=== PATIENT | female | born 1940 | race Caucasian/White ===

== ENCOUNTER 2024-03-18 17:30 | Emergency (ER) | payer OTHER, SELFPAY ==
[2024-03-18 17:34] VITALS: BP 189/60; BMI 38.7
[2024-03-18 17:52] LABS: Hematocrit 30.2 % (37.0-47.0); Mean Corp Hgb Conc. 33.1 g/dL (33.0-37.0); Mean Corpuscular Hgb 27.5 pg (27.0-31.0); Mean Corpuscular Volume 83.2 fL (81.0-99.0); Mean Platelet Volume 9.8 fL (7.4-10.4); Platelet Count 279 10^3/uL (130-400); Red Blood Cell Count 3.63 10^6/uL (4.20-5.40); Red Cell Dist. Width 15.6 % (11.5-14.5); White Blood Cell Count 8.1 10^3/uL (4.8-10.8)
[2024-03-18 18:06] LABS: ALT (SGPT) 18 U/L (0-35); AST (SGOT) 25 U/L (14-36); Albumin 4.6 g/dl (3.5-5.0); Alkaline Phosphatase 61 U/L (38-126); Blood Urea Nitrogen 39 mg/dl (7-17); Calcium 10.1 mg/dl (8.4-10.2); Carbon Dioxide 27 mmol/L (22-30); Chloride 93 mmol/L (98-107); Estimated Creatinine Clearance 35 ml/min; Glucose 144 mg/dl (70-99); Potassium 4.3 mmol/L (3.5-5.1); Sodium 130 mmol/L (135-145); Total Bilirubin 0.3 mg/dl (0.2-1.3); Total Protein 7.2 g/dl (6.3-8.2)
[2024-03-18 18:18] LABS: NT-proBNP 1300 pg/ml; Troponin I 0.017 ng/ml
[2024-03-18 19:00] VITALS: BP 157/50
[2024-03-18 20:45] LABS: Glucose - Point of Care 125 mg/dl (70-99)
--- NOTE | 2024-03-18 21:24 | ED.GENMED ---
History of Present Illness
General
Chief Complaint: Breathing Problem
Source: patient
Time Seen by Provider: 03/18/24 17:38
History of Present Illness
History of Present Illness:
This is an 84yo female who presents with complaints of shortness of breath. Patient states this has been ongoing for some time but worse over the last several weeks. She has seen cardiology. She has outpatient testing pending. She has an appoint
with her primary care doctor tomorrow. Patient on my evaluation states she feels better she is not really short of breath. Patient states that at night though she wakes up and she is anxious that she is worried that she feels short of breath. She
does walk around her apartment without any issues. Occasionally when she walks a dinner she will have to stop but otherwise does not really have much exertional shortness of breath. No chest pain. No palpitations.
Past History
Past History
ED Past Medical History: CAD, CHF, COPD, HTN, Hypercholesterolemia and NIDDM
ED Past Surgical History: Cardiac and Orthopedic
Social History
Tobacco: Former smoker
Personal:
Phy Exam
Physical Exam
Physical Exam:
CONSTITUTIONAL Patient alert and oriented to person, place and time. Well-appearing. Vital signs reviewed.
HEAD atraumatic, normocephalic.
EYES eyelids normal to inspection, Pupils equally round and reactive to light, Extraocular muscles intact, Conjunctiva normal, Sclera normal.
NECK normal range of motion, Trachea midline, no jugular venous distention.
RESPIRATORY CHEST No respiratory distress noted, Chest expansion equal, Bilateral breath sounds clear.
CARDIOVASCULAR regular rate and rhythm, Heart sounds normal.
ABDOMEN abdomen nontender, Bowel sounds normal. No distention.
BACK normal inspection, no obvious deformities
UPPER EXTREMITY range of motion normal, Motor strength normal, no cyanosis, no edema.
LOWER EXTREMITY range of motion normal, Motor strength normal, no cyanosis, no edema.
NEURO Speech normal, No focal motor deficits, Elim coma scale 15, Memory normal, Cranial Nerves intact to screening exam.
SKIN skin warm, dry, and normal in color.
PSYCHIATRIC patient oriented to person place and time, Normal affect.
Scores
Heart Failure Risk
Heart Failure Risk Score: Not Applicable
Course
Orders/Labs/Results
Orders:
Orders
03/18/24 17:33
Electrocardiogram (*1) Urgent
Reason for Study: Shortness of Breath
EKG- Treatment ONCE
03/18/24 17:40
BNP [NT-proBNP] Urgent
Complete Blood Count/No Diff Urgent
Comprehensive Metabolic Panel Urgent
Troponin I Urgent
03/18/24 17:44
CR Chest - 2 Views Urgent
Comment:
Reason For Exam: SOB
03/18/24 19:54
Furosemide [Lasix] 40 mg IV NOW STA
Abnormal Lab Results
03/18/24 03/18/24
17:40 20:42
RBC 3.63 L 10^6/uL
(4.20-5.40)
Hgb 10.0 L g/dL
(12.0-16.0)
Hct 30.2 L %
(37.0-47.0)
RDW 15.6 H %
(11.5-14.5)
Sodium 130 L mmol/L
(135-145)
Chloride 93 L mmol/L
(98-107)
BUN 39 H mg/dl
(7-17)
Creatinine 1.3 H mg/dL
(0.6-1.0)
Glucose 144 H mg/dl
(70-99)
POC Glucose 125 H mg/dl
(70-99)
03/18/24 17:40
03/18/24 17:40
Vital Signs
Initial and Last Documented VS:
Initial Vital Signs
Temp Pulse Resp BP Pulse Ox
98.7 F 80 16 189/60 95
03/18/24 17:34 03/18/24 17:34 03/18/24 17:34 03/18/24 17:34 03/18/24 17:34
Last Documented Vital Signs
Temp Pulse Resp BP Pulse Ox
98.7 F 80 22 167/59 93
03/18/24 17:34 03/18/24 21:47 03/18/24 21:15 03/18/24 21:47 03/18/24 21:47
MDM/Problems Addressed
MDM/Problems Addressed:
Chronic heart failure, dyspnea
*Radiology
Radiology exam reviewed: radiology read reviewed
*Pulse Oximetry
Patient hypoxic: no
*EKG
Interpreted by ED Provider?: Yes
Rate: normal
Rhythm: sinus
[place]: normal axis
Ischemia: non-specific ST changes
*Cement Sack Breaker Interpretation
Rate: normal
Interpretation: normal
Rhythm: sinus
*Critical Care Note
Total Time (30-74mins, 75-104mins- exclusive of procedures): Not Applicable
Data Reviewed
Review of Other/Old Records Reveals: Discharge Summary
Source: patient
Prescriptions/Medications Considered But Not Given:
Considered IV Lasix but patient feels she can just take her nighttime dosing.
Patient Management
Escalation/DeEscalation of care consider admission/obs:
Lengthy discussion with patient. Patient is stable. She ambulates to bathroom without difficulty. She is not tachypneic or hypoxic. No tachycardia. Lungs are clear. No lower extremity edema. She already has outpatient follow-up tomorrow
morning at 9 AM in addition she has outpatient cardiology workup the works. I do think she is stable for discharge. She admits that some nights she is just anxious because her a few years ago and sometimes she becomes worried living
alone. I recommended she follow-up with her PCP tomorrow which she agrees to. Continue her 80 mg of Lasix tonight when she gets home
ED Attending Note
-
Portions of this chart may have been created with voice recognition software.� Occasional wrong word or��sound alike� substitutions may have occurred due to the inherent limitations of voice recognition software.
Discharge Plan
Departure
Patient Disposition: Home (Routine Discharge)
Date of Disposition: 03/18/24
Time of Disposition: 21:35
Patient with high blood pressure during this ER visit?: Yes
Discharge Problem:
Acute dyspnea
Instructions: *DCA Heart Failure Instructions
Prescriptions:
No Action
metoprolol tartrate 100 mg Tablet
100 mg PO BID
isosorbide mononitrate 30 mg Tablet Extended Release 24 Hr
30 mg PO DAILY
therapeutic multivitamin Tablet
1 tab PO .AFTERNOON
oxycodone-acetaminophen 5-325 mg tablet
1 tab PO TID PRN (Reason: severe pain)
Patient Comments:
07/24/2023, patient filled this medication on 07/19/2023 for 90 tablets according to PDMP.
sodium bicarbonate 650 mg Tablet
650 mg PO BID
fluticasone propionate 50 mcg/actuation [place],Suspension
1 spray INTRANASAL BID PRN (Reason: congestion)
cholecalciferol (vitamin D3) [Vitamin D3] 50 mcg (2,000 unit) Capsule
50 mcg PO DAILY
acetaminophen [Tylenol Extra Strength] 500 mg Tablet
1,500 mg PO BIDPRN PRN (Reason: mild pain)
aspirin 81 mg Tablet,Chewable
81 mg PO DAILY
fenofibrate nanocrystallized 48 mg Tablet
48 mg PO DAILY
CoQ-10
150 mg PO QPM
Rolaids
2 tab PO DAILYPRN PRN (Reason: stomach discomfort)
ipratropium-albuterol 0.5 mg-3 mg(2.5 mg base)/3 mL Solution For Nebulization
3 ml inhalation R TID Qty: 90 0RF
benzonatate 100 mg Capsule
100 mg PO TIDPRN PRN (Reason: cough) Qty: 30 0RF
gabapentin 100 mg Capsule
400 mg PO BID Qty: 60 0RF
pantoprazole 40 mg Tablet,Delayed Release (Dr/Ec)
40 mg PO DAILY Qty: 30 0RF
guaifenesin 600 mg Tablet Extended Release 12hr
1,200 mg PO Q12 Qty: 20 0RF
furosemide 40 mg Tablet
60 mg PO DAILY Qty: 30 0RF
atorvastatin 10 mg Tablet
10 mg PO QPM Qty: 30 0RF
glipizide 5 mg tablet
5 mg PO BID Qty: 60 0RF
Referrals:
Becka Lacy MD [Family Provider] -
Activity Restrictions/Additional Instructions:
Please see your doctor tomorrow morning as planned. Please follow-up with your plating operator next 3 to 5 days. Return immediately for worsening symptoms, leg swelling, chest pain, fevers or any other concerns.
Interventions
Interventions:
*Risk Screen - Suicide Last Done: 03/18/24 17:34
*General Assessment Last Done: 03/18/24 17:34
*Neglect/Abuse Screening Last Done: 03/18/24 17:34
ED- Cardiac Assessment Last Done: 03/18/24 18:37
ED- Pulmonary Assessment Last Done: 03/18/24 18:37
Discharge Date and Time
Print Language: TURKISH
[2024-03-18 21:45] VITALS: BP 167/59
[2024-03-18 21:47] VITALS: BP 167/59
[2024-03-18 22:00] VITALS: BP 160/57
== END 2024-03-18 22:48 | disposition home or self-care (01) ==
LOC: EMR 17:30
PROVIDERS: EMERGENCY PHYSICIAN Emergency Medicine; FAMILY PHYSICIAN Internal Medicine Geriatric Medicine
DX: R06.09 Other forms of dyspnea (principal); Z87.891 Personal history of nicotine dependence; I11.0 Hypertensive heart disease with heart failure; I50.9 Heart failure, unspecified
CPT/HCPCS: 99285; 96374; 71046; 80053; 82962; 83880; 84484; 85027; 93005

== ENCOUNTER 2024-03-20 18:22 | Emergency (ER) | payer OTHER, SELFPAY ==
[2024-03-20 18:26] VITALS: BMI 38.9
[2024-03-20 18:31] VITALS: BP 116/86
[2024-03-20 18:41] LABS: % Basophils 0.5 % (0-2); % Eosinophils 2.1 % (0-6); % Immature Granulocytes 0.2 % (0-0.5); % Lymphocytes 35.1 % (20.5-51.1); % Monocytes 9.5 % (1.7-9.3); % Neutrophils 52.6 % (42.2-75.2); Absolute Eosinophils 0.2 10^3/uL (0-0.7); Absolute Lymphocytes 2.9 10^3/uL (1.2-3.4); Absolute Monocytes 0.8 10^3/uL (0.1-0.6); Absolute Neutrophils 4.3 10^3/uL (1.4-6.5); Hematocrit 31.8 % (37.0-47.0); Hemoglobin 10.3 g/dL (12.0-16.0); Mean Corp Hgb Conc. 32.4 g/dL (33.0-37.0); Mean Corpuscular Hgb 27.3 pg (27.0-31.0); Mean Corpuscular Volume 84.4 fL (81.0-99.0); Mean Platelet Volume 9.6 fL (7.4-10.4); Nucleated Red Blood Cells % 0 %; Platelet Count 300 10^3/uL (130-400); Red Blood Cell Count 3.77 10^6/uL (4.20-5.40); Red Cell Dist. Width 15.9 % (11.5-14.5); White Blood Cell Count 8.1 10^3/uL (4.8-10.8)
--- NOTE | 2024-03-20 18:44 | ED.GENMED ---
History of Present Illness
General
Chief Complaint: Breathing Problem
Source: patient
Exam Limitations: none
Time Seen by Provider: 03/20/24 18:27
History of Present Illness
History of Present Illness:
This is a 84 year old female that come in by ambulance with c/o SOB and chest tightness. States that she was here on Tuesday for the same thing. State that she get SOB and can't take a deep breath in. States that the ambulance came and she was given
Oxygen and know she feels better. States that on Tuesday she was told when she went home to take Lasix 100mg instead of her 80mg, which she did. States that she went to see the PCP yesterday and she told them that the SOB does go away. States that
she just can't take that deep breath all the way through. States that she tried to walk to the dinning room last night for dinner and she had no appetite and started with diarrhea. States that today she had chest tightness, SOB, nausea and
occasionally she is dizzy. Denies any fevr, chills, abd pain, vomiting, headache, urinary burning.
Past History
Past History
ED Past Medical History: CAD, CHF, COPD, HTN, Hypercholesterolemia, NIDDM and Other (Back pain, Neuropathy, PVD)
ED Past Surgical History: Cardiac (Triple bypass, ) and Orthopedic (Back surgery, )
Social History
Tobacco: Former smoker
Alcohol: None
Personal:
Living: assisted living ([facility])
Review of Systems
Review of Systems
All Other Systems: ROS reviewed and negative except as documented in HPI and ROS
Constitutional: Reports no symptoms; Denies fever or chills
EENT: Reports no symptoms
Respiratory: Reports trouble breathing; Denies cough
Cardiac: Reports chest pain (Tightness)
ABD/GI: Reports nausea and diarrhea; Denies abdominal pain or vomiting
: Reports no symptoms; Denies dysuria, frequency or urgency
Musculoskeletal: Reports no symptoms
Skin: Reports no symptoms
Neurological: Reports dizzy; Denies headache
Psychiatric: Reports no symptoms
Phy Exam
General Physical Exam
General Presentation: no apparent distress
General age: appears stated age
General Skin: warm and dry
General Habitus: elderly
General Mental: alert
General Hydration: appears well hydrated
ENT Exam
ENT Exam: TM's normal, pharynx normal and neck supple
Eye Exam
Eye Exam: EOMI
Cardiovascular Exam
Cardiovascular Exam: regular rate/rhythm, no edema and normal peripheral pulses
Pulmonary Exam
Pulmonary Exam: lungs clear, no respiratory distress, no rales, chest non tender, no crackles, no rhonchi, no wheezing and no cough
Gastrointestinal Exam
Gastrointestinal Exam: normal bowel sounds, non tender, soft, no organomegaly, no pulsatile mass and non distended
Musculoskeletal Exam
Musculoskeletal Exam: full ROM and no edema
Skin Exam
Skin Exam: normal color, warm/dry, no rash and no petechia
Psychiatric Exam
Psychiatric Exam: normal mood/affect
Scores
Heart Failure Risk
Heart Failure Risk Score: Not Applicable
Course
Orders/Labs/Results
Orders:
Orders
03/20/24 18:24
EKG [Electrocardiogram (*1)] Urgent
Reason for Study: Shortness of Breath
03/20/24 18:25
EKG- Treatment ONCE
03/20/24 18:30
BNP [NT-proBNP] Urgent
CBC/With Diff [Complete Blood Count/With Diff] Urgent
CMP [Comprehensive Metabolic Panel] Urgent
Troponin I Urgent
Comment: ADDON
03/20/24 18:32
Add On- LAB Urgent
Tests Added?: troponin
03/20/24 18:43
Furosemide [Lasix] 80 mg PO NOW STA
CR Chest - 2 Views Urgent
Comment:
Reason For Exam: Chest pain, SOB
Abnormal Lab Results
03/20/24
18:30
RBC 3.77 L 10^6/uL
(4.20-5.40)
Hgb 10.3 L g/dL
(12.0-16.0)
Hct 31.8 L %
(37.0-47.0)
MCHC 32.4 L g/dL
(33.0-37.0)
RDW 15.9 H %
(11.5-14.5)
Absolute Monos (auto) 0.8 H 10^3/uL
(0.1-0.6)
Monocytes % 9.5 H %
(1.7-9.3)
Sodium 130 L mmol/L
(135-145)
Chloride 91 L mmol/L
(98-107)
BUN 52 H mg/dl
(7-17)
Creatinine 1.5 H mg/dL
(0.6-1.0)
Glucose 133 H mg/dl
(70-99)
03/20/24 18:30
03/20/24 18:30
H/H low but consistent with prior labs. Sodium slightly low. Chloride low, Chronic renal insufficiency, Glucose nonfasting. Troponin 0.018, Pro-BNP improved since Tuesday to 782
Vital Signs
Initial and Last Documented VS:
Initial Vital Signs
Temp Pulse Resp Pulse Ox
97.9 F 80 21 97
03/20/24 18:26 03/20/24 18:26 03/20/24 18:26 03/20/24 18:26
Last Documented Vital Signs
Temp Pulse Resp BP Pulse Ox
97.9 F 76 19 144/64 97
03/20/24 18:26 03/20/24 19:15 03/20/24 19:15 03/20/24 19:00 03/20/24 19:15
MDM/Problems Addressed
Differential Diagnosis Includes:
CHF, Anxiety
MDM/Problems Addressed:
This is a 84 year old female that comes in with c/o SOB and chest tightness. States that she was here on Tuesday for the same thing and that she did see her PCP yesterday. States that she feels she just can't take that deep breath.
Will check labs, Chest x-ray, give patient her night time Lasix.
Back into see patient. Explained that her chest x-ray is normal and her Pro-BNP is improved since Tuesday. Explained that she needs to follow up with the family doctor and discussed with her about anxiety and possible getting Oxygen for her at night.
Will discharge patient back to [facility].
Chronic conditions affecting care: CAD
Acute Exacerbation and/or Progression of Chronic Illness: CAD
*Radiology
Radiology exam reviewed: radiology read reviewed (Chest-NO acute cardiopulmonary process)
*Pulse Oximetry
Patient hypoxic: no
*EKG
Interpreted by ED Provider?: Yes
Heart Rate: 76
Rate: normal
Rhythm: sinus and PAC's
[place]: normal axis
Interval: normal interval
QRS Pattern: normal QRS
Ischemia: no ischemia
*Gun Club Manager Interpretation
Rate: normal
Heart Rate: 77
Rhythm: sinus
*Critical Care Note
Total Time (30-74mins, 75-104mins- exclusive of procedures): Not Applicable
ED Attending Note
-
Portions of this chart may have been created with voice recognition software.� Occasional wrong word or��sound alike� substitutions may have occurred due to the inherent limitations of voice recognition software.
Discharge Plan
Departure
Patient Disposition: Home (Routine Discharge)
Date of Disposition: 03/20/24
Time of Disposition: 20:56
Patient with high blood pressure during this ER visit?: No
Condition: Good
Covid-19: Not Applicable
Discharge Problem:
SOB (shortness of breath)
Instructions: Shortness of Breath (Dyspnea) (DC)
Prescriptions:
No Action
metoprolol tartrate 100 mg Tablet
100 mg PO BID
isosorbide mononitrate 30 mg Tablet Extended Release 24 Hr
30 mg PO DAILY
therapeutic multivitamin Tablet
1 tab PO DAILY
oxycodone-acetaminophen 5-325 mg tablet
1 tab PO Q6HPRN PRN (Reason: severe pain)
Patient Comments:
03/20/2024: last filled 02/28/24, 120 tabs for 30 days from [facility]
sodium bicarbonate 650 mg Tablet
650 mg PO BID
fluticasone propionate 50 mcg/actuation [place],Suspension
1 spray INTRANASAL BIDPRN PRN (Reason: congestion)
cholecalciferol (vitamin D3) [Vitamin D3] 50 mcg (2,000 unit) Capsule
50 mcg PO DAILY
Rolaids 550-110 mg Tablet,Chewable
2 tab PO DAILYPRN PRN (Reason: stomach discomfort) Qty: 0
Co Q-10 150 mg Capsule
150 mg PO QPM Qty: 0
aspirin 81 mg Tablet,Chewable
81 mg PO DAILY
fenofibrate nanocrystallized 48 mg Tablet
48 mg PO DAILY
furosemide 40 mg tablet
80 mg PO QPM
hydralazine 25 mg tablet
25 mg PO BID
metformin 1,000 mg tablet
1,000 mg PO BID
gabapentin 300 mg capsule
300 mg PO QID
rosuvastatin 20 mg tablet
20 mg PO QPM
furosemide 40 mg tablet
40 mg PO DAILY
ipratropium-albuterol 0.5 mg-3 mg(2.5 mg base)/3 mL solution for nebulization
3 ml inhalation R TIDPRN PRN (Reason: sob/wheezing)
Referrals:
Becka Lacy MD [Family Provider] - Follow up in 2-3 days
Activity Restrictions/Additional Instructions:
As discussed, your chest x-ray is negative for any acute process. Your Pro-BNP which is a marker for fluid over load is low. You have chronic renal insufficiency. Please follow up with the family doctor for recheck and discuss with her about having
Oxygen at home for when you are feeling SOB. PLEASE HAVE THE NURSING STAFF AT [facility] BRING IN A PORTABLE OXYGEN TANK FOR KNOW TO HELP YOU GET THROUGH THE NIGHT. YOUR OXYGEN LEVEL IS 94% ON ROOM AIR. IF YOU HAVE ANY OTHER CONCENS PLEASE
RETURN TO THE EMERGENCY ROOM.
Interventions
Interventions:
*Risk Screen - Suicide Last Done: 03/20/24 18:26
*General Assessment Last Done: 03/20/24 18:26
*Neglect/Abuse Screening Last Done: 03/20/24 18:26
ED- Fall Risk Assessment Last Done: 03/20/24 18:49
ED- Cardiac Assessment Last Done: 03/20/24 18:49
ED- Pulmonary Assessment Last Done: 03/20/24 18:49
Discharge Date and Time
Print Language: SLOVENIAN
[2024-03-20 18:55] LABS: ALT (SGPT) 17 U/L (0-35); AST (SGOT) 29 U/L (14-36); Albumin 4.6 g/dl (3.5-5.0); Alkaline Phosphatase 52 U/L (38-126); Blood Urea Nitrogen 52 mg/dl (7-17); Calcium 9.6 mg/dl (8.4-10.2); Carbon Dioxide 30 mmol/L (22-30); Chloride 91 mmol/L (98-107); Estimated Creatinine Clearance 31 ml/min; Glucose 133 mg/dl (70-99); Potassium 4.5 mmol/L (3.5-5.1); Sodium 130 mmol/L (135-145); Total Bilirubin 0.4 mg/dl (0.2-1.3); Total Protein 7.2 g/dl (6.3-8.2); eGFR 34.36
[2024-03-20 19:00] VITALS: BP 144/64
[2024-03-20 19:11] LABS: NT-proBNP 782 pg/ml; Troponin I 0.018 ng/ml
[2024-03-20] MEDS: LASIX 80 MG PO (19:26)
[2024-03-20 21:00] VITALS: BP 157/58
[2024-03-20 21:16] VITALS: BP 157/58
== END 2024-03-20 22:20 | disposition home or self-care (01) ==
LOC: EMR 18:22
PROVIDERS: Emergency Medicine; EMERGENCY PHYSICIAN Emergency Medicine; FAMILY PHYSICIAN Internal Medicine Geriatric Medicine
DX: R06.02 Shortness of breath (principal); I25.10 Atherosclerotic heart disease of native coronary artery without angina pectoris; Z87.891 Personal history of nicotine dependence
CPT/HCPCS: 99285; 71046; 80053; 83880; 84484; 85025; 93005

== ENCOUNTER 2024-10-16 16:16 | Inpatient (IN) | payer OTHER, SELFPAY ==
[2024-10-16] VITALS (7 sets, daily range): BP systolic 100–147; BP diastolic 50–103; BMI 38.8; BMI 38.4
[2024-10-16 10:06] LABS: % Basophils 0.5 % (0-2); % Eosinophils 2.1 % (0-6); % Immature Granulocytes 0.5 % (0-0.5); % Lymphocytes 30.2 % (20.5-51.1); % Monocytes 10.8 % (1.7-9.3); % Neutrophils 55.9 % (42.2-75.2); Absolute Eosinophils 0.1 10^3/uL (0-0.7); Absolute Monocytes 0.7 10^3/uL (0.1-0.6); Absolute Neutrophils 3.7 10^3/uL (1.4-6.5); Hematocrit 30.4 % (37.0-47.0); Hemoglobin 9.1 g/dL (12.0-16.0); Mean Corp Hgb Conc. 29.9 g/dL (33.0-37.0); Mean Corpuscular Hgb 29.2 pg (27.0-31.0); Mean Corpuscular Volume 97.4 fL (81.0-99.0); Mean Platelet Volume 9.6 fL (7.4-10.4); Nucleated Red Blood Cells % 0 %; Platelet Count 250 10^3/uL (130-400); Red Blood Cell Count 3.12 10^6/uL (4.20-5.40); White Blood Cell Count 6.6 10^3/uL (4.8-10.8)
[2024-10-16] MEDS: PERCOCET 5/325 1 TABLET PO ×3 (10:18→23:17)
[2024-10-16 10:20] LABS: ALT (SGPT) 16 U/L (0-35); AST (SGOT) 19 U/L (14-36); Albumin 3.8 g/dl (3.5-5.0); Alkaline Phosphatase 56 U/L (38-126); Blood Urea Nitrogen 59 mg/dl (7-17); Calcium 9.6 mg/dl (8.4-10.2); Carbon Dioxide 28 mmol/L (22-30); Chloride 100 mmol/L (98-107); Estimated Creatinine Clearance 27 ml/min; Glucose 143 mg/dl (70-99); Potassium 5.1 mmol/L (3.5-5.1); Sodium 134 mmol/L (135-145); Total Bilirubin 0.2 mg/dl (0.2-1.3); Total Protein 6.5 g/dl (6.3-8.2); eGFR 29.57
--- NOTE | 2024-10-16 10:25 | ED.GENMED ---
History of Present Illness
General
Chief Complaint: Chest Pain
Source: patient
Exam Limitations: none
Time Seen by Provider: 10/16/24 09:45
Nursing documentation reviewed up to this point in time: agreed with
History of Present Illness
History of Present Illness:
Pleasant elderly female from [facility] she has had some falls recently and at the medical unit recovering getting physical therapy today she apparently fell struck her buttock and her right knee got up felt short of breath with some pressure in
her chest, placed on oxygen, no head strike, no nausea or vomiting no fevers, she has chronic lung disease on oxygen as needed, ex-smoker has heart failure but no CAD she tells me had a stress test recently she is due for an echocardiogram
Past History
Past History
ED Past Medical History: CAD, CHF, COPD, HTN, Hypercholesterolemia, NIDDM and Other (Back pain, Neuropathy, PVD)
ED Past Surgical History: Cardiac (Triple bypass, ) and Orthopedic (Back surgery, )
Social History
Tobacco: Former smoker
Alcohol: None
Drug: None
Personal:
Living: assisted living ([facility])
Employment: Retired
Review of Systems
Review of Systems
All Other Systems: Not applicable
Constitutional: Denies fever or fatigue
Respiratory: Reports cough and trouble breathing
Cardiac: Reports chest pain
ABD/GI: Reports no symptoms
Musculoskeletal: Reports joint swelling (Right knee pain buttock pain) and back pain (Buttock pain); Denies joint pain
Neurological: Reports no symptoms
Hematologic/Lymphatic: Reports bruising (Bruising over the right abbott)
Psychiatric: Reports no symptoms
Phy Exam
Physical Exam
Physical Exam:
Physical Exam
General: no apparent distress, not acutely ill
Neck: No tongue bite no posterior neck
Heart: Regular
Lungs: Crackles at the
Abdomen: Soft not
Neuro: alert and oriented. no focal neurological deficits
Skin: no rash
Psychiatric: well kept. interactive and cooperative
Extremities: Pain at the right knee ecchymosis without pain over the right abbott
Scores
Heart Failure Risk
Heart Failure Risk Score: Yes
History of Stroke or TIA: No
History of intubation for respiratory distress: No
Heart rate on ED arrival >/= 110: Yes
SaO2 <90% on arrival on room air: Yes
HR >/=110 during 3min walk test (or too ill to perform test): No
ECG has acute ischemic changes: No
Urea >/=12mmol/L (BUN 33.6mg/dL): No
Serum CO2>/=35mmol/L: No
Troponin I or T elevated to SD Level (0.4mg/dL): No
NT-proBNP >/=5,000ng/L (5,000pg/ml): Yes
HF Risk Score: 2
Admission Status: MEDIUM RISK 9.2% Consider observation or discharge to home with homecare & f/u visit to PCP/Clerical Manager, or SNF for treatment
Heart Score for Chest Pain Patients
STEMI patient?: No
History: Slightly or Non-Suspicious
ECG: Nonspecific Repolarization
Age: >/= 65 years
Risk Factors: 1 or 2 Risk Factors
Troponin: </= Normal Limit
Heart Score for Chest Pain Patients: 4
Heart Score Risk: 20.3% MACE over next 6 weeks
Course
Orders/Labs/Results
Orders:
Orders
10/16/24 09:39
Electrocardiogram (*1) Urgent
Reason for Study: Chest Pain
EKG- Treatment ONCE
10/16/24 09:59
Complete Blood Count/With Diff Urgent
Comprehensive Metabolic Panel Urgent
NT-proBNP Urgent
Troponin I Urgent
10/16/24 10:05
CR Chest - 2 Views Urgent
Comment:
Reason For Exam: sob
10/16/24 10:15
Oxycodone/Acetaminophen [Percocet 5/325] 1 tablet PO NOW STA
CR Knee - Right 1 Or 2 Views Urgent
Comment:
Reason For Exam: fall
Pelvis, 1 or 2 Views CR [CR Pelvis - 1 Or 2 Views ] Urgent
Comment:
Reason For Exam: fall
10/16/24 11:42
Furosemide [Lasix] 80 mg IV NOW STA
Ipratropium/Albuterol Sulfate [Duoneb] 3 ml INH R NOW STA
Abnormal Lab Results
10/16/24
09:59
RBC 3.12 L 10^6/uL
(4.20-5.40)
Hgb 9.1 L g/dL
(12.0-16.0)
Hct 30.4 L %
(37.0-47.0)
MCHC 29.9 L g/dL
(33.0-37.0)
RDW 15.0 H %
(11.5-14.5)
Absolute Monos (auto) 0.7 H 10^3/uL
(0.1-0.6)
Monocytes % 10.8 H %
(1.7-9.3)
Sodium 134 L mmol/L
(135-145)
BUN 59 H mg/dl
(7-17)
Creatinine 1.7 H mg/dL
(0.6-1.0)
Glucose 143 H mg/dl
(70-99)
Troponin I 0.074 H* ng/ml
10/16/24 09:59
10/16/24 09:59
Vital Signs
Initial and Last Documented VS:
Initial Vital Signs
Temp Pulse Resp BP Pulse Ox
97.8 F 89 18 133/103 98
10/16/24 09:50 10/16/24 09:50 10/16/24 09:50 10/16/24 09:50 10/16/24 09:50
Last Documented Vital Signs
Temp Pulse Resp BP Pulse Ox
97.8 F 80 14 116/50 96
10/16/24 09:50 10/16/24 12:00 10/16/24 12:00 10/16/24 11:00 10/16/24 11:00
MDM/Problems Addressed
Differential Diagnosis Includes:
Deconditioning fall pelvic fracture sacral fracture knee injury heart failure COPD electrolyte abnormality arrhythmia
MDM/Problems Addressed:
Fall shortness of breath chest pain
Chronic conditions affecting care: Cardiomyopathy
Acute Exacerbation and/or Progression of Chronic Illness: Cardiomyopathy
*Radiology
Radiology exam reviewed: preliminary read by ED provider
*Pulse Oximetry
Patient hypoxic: no
*EKG
Interpreted by ED Provider?: Yes
Interpretation: abnormal
Comparison EKG: changes noted
Heart Rate: 78
Rate: normal
Rhythm: sinus
Ischemia: T-wave inversion
*It Support Specialist Interpretation
Rate: normal
Interpretation: normal
Heart Rate: 78
Rhythm: sinus
*Critical Care Note
Total Time (30-74mins, 75-104mins- exclusive of procedures): Not Applicable
Update Note
Update Note:
Update, labs noted chest x-ray noted suspect she is volume overloaded we will resume diuretic and nebs
ED Attending Note
-
Portions of this chart may have been created with voice recognition software.� Occasional wrong word or��sound alike� substitutions may have occurred due to the inherent limitations of voice recognition software.
Discharge Plan
Departure
Prescriptions:
No Action
metoprolol tartrate 100 mg Tablet
100 mg PO BID
isosorbide mononitrate 30 mg Tablet Extended Release 24 Hr
30 mg PO DAILY
therapeutic multivitamin Tablet
1 tab PO DAILY
oxycodone-acetaminophen 5-325 mg tablet
1 tab PO Q6HPRN PRN (Reason: severe pain)
sodium bicarbonate 650 mg Tablet
650 mg PO BID
fluticasone propionate 50 mcg/actuation [place],Suspension
1 spray INTRANASAL BIDPRN PRN (Reason: congestion)
cholecalciferol (vitamin D3) [Vitamin D3] 50 mcg (2,000 unit) Capsule
50 mcg PO DAILY
Co Q-10 150 mg Capsule
300 mg PO QPM Qty: 0
aspirin 81 mg Tablet,Chewable
81 mg PO DAILY
fenofibrate nanocrystallized 48 mg Tablet
48 mg PO DAILY
furosemide 40 mg tablet
80 mg PO QPM
hydralazine 25 mg tablet
25 mg PO BID
metformin 1,000 mg tablet
1,000 mg PO BID
gabapentin 300 mg capsule
300 mg PO QID
rosuvastatin 20 mg tablet
20 mg PO QPM
furosemide 40 mg tablet
40 mg PO DAILY
ipratropium-albuterol 0.5 mg-3 mg(2.5 mg base)/3 mL solution for nebulization
3 ml inhalation R TIDPRN PRN (Reason: sob/wheezing)
cyanocobalamin (vitamin B-12) 1,000 mcg Tablet
1,000 mcg PO DAILY
omeprazole 20 mg Tablet,Delayed Release (Dr/Ec)
20 mg PO DAILY
Referrals:
Becka Lacy MD [Family Provider] -
Interventions
Interventions:
*Risk Screen - Suicide Last Done: 10/16/24 09:51
*General Assessment Last Done: 10/16/24 09:51
*Neglect/Abuse Screening Last Done: 10/16/24 09:51
*ED- Fall Risk Assessment Last Done: 10/16/24 09:51
*ED COVID-19 Vaccine History Last Done: 10/16/24 09:51
ED- Cardiac Assessment Last Done: 10/16/24 09:52
Discharge Date and Time
Print Language: AMHARIC
[2024-10-16 10:33] LABS: NT-proBNP 6970 pg/ml; Troponin I 0.074 ng/ml
[2024-10-16] MEDS: LASIX 80 MG IV (11:47)
[2024-10-16] MEDS: DUONEB 3 ML INH (11:47)
--- NOTE | 2024-10-16 12:24 | HPS.HSE ---
Family Physician
-
Family Physician: Becka Lacy
Chief Complaint
-
Shortness of breath
History of Present Illness
84F [facility] assisted [facility] Morbid Obesity CAD CABG HFpEF COPD on prn 2L at home HTN HLD NIDDM former smoker present with progressive REESE orthopnea weight gain for the past few weeks. Had a fall during physical therapy, noted hypoxic
requiring oxygen supplementation, severe exercise intolerance, prompting ED eval. VSS on 2L. BNP all time high 6970. CXR suggestive mild CHF. Patient was treated with IV lasix 80 mg with subsequent improvement in sob noted. Troponin elevated
0.074 denies chest pain. No significant EKG changes noted in comparison with prior EKG Mar 2024.
Medical History
Past Medical History
Past Medical History: Reports Other (as above)
Past Surgical History: Reports Other (as above)
Social History
Tobacco: Former Smoker
Alcohol: None
Drug: None
Personal:
Living: Assisted Living
Employment: Retired
Family History
Family History: Not pertinent (reviewed)
Allergies / Home Medications
Allergies reflects when Allergies were last updated in [employer].
Home Medications with original date entered in [facility]
Allergy/Medication List:
Allergies
Allergy/AdvReac Type Severity Reaction Status Date / Time
amoxicillin Allergy Anaphylaxis Verified 03/18/24 17:44
bee venom protein (honey bee) Allergy Anaphylaxis Verified 03/18/24 17:44
clindamycin Allergy Anaphylaxis Verified 03/18/24 17:44
Penicillins Allergy Anaphylaxis Verified 03/18/24 17:44
Home Medications
isosorbide mononitrate 30 mg tablet,extended release 24 hr 30 mg PO DAILY Heart Disease/Condition 12/30/22
metoprolol tartrate 100 mg tablet 100 mg PO BID Blood Pressure 12/30/22
oxycodone-acetaminophen 5 mg-325 mg tablet 1 tab PO Q6HPRN PRN severe pain 12/30/22
sodium bicarbonate 650 mg tablet 650 mg PO BID Electrolyte Repletion 12/30/22
therapeutic multivitamin 1 tab PO DAILY Supplement 12/30/22
aspirin 81 mg chewable tablet 81 mg PO DAILY Blood Clot Prevention/Tx 07/24/23
cholecalciferol (vitamin D3) 50 mcg (2,000 unit) capsule (Vitamin D3) 50 mcg PO DAILY Supplement 07/24/23
coenzyme Q10 150 mg capsule 300 mg PO QPM Supplement ##0 07/24/23
fenofibrate nanocrystallized 48 mg tablet 48 mg PO DAILY High Cholesterol 07/24/23
fluticasone propionate 50 mcg/actuation nasal spray,suspension 1 spray intranasal BIDPRN PRN congestion 07/24/23
furosemide 40 mg tablet 40 mg PO DAILY 03/20/24
furosemide 40 mg tablet 80 mg PO QPM 03/20/24
gabapentin 300 mg capsule 300 mg PO QID 03/20/24
hydralazine 25 mg tablet 25 mg PO BID 03/20/24
ipratropium 0.5 mg-albuterol 3 mg (2.5 mg base)/3 mL nebulization soln 3 ml inhalation R TIDPRN PRN sob/wheezing 03/20/24
metformin 1,000 mg tablet 1,000 mg PO BID 03/20/24
rosuvastatin 20 mg tablet 20 mg PO QPM 03/20/24
cyanocobalamin (vitamin B-12) 1,000 mcg tablet 1,000 mcg PO DAILY 10/16/24
omeprazole 20 mg tablet,delayed release 20 mg PO DAILY 10/16/24
Review of Systems
-
A 12 point ROS was completed and negative except as noted: Yes
Constitutional: Reports Other (as below)
Physical Exam
Vital Signs
Vital Signs
Temp Pulse Resp BP Pulse Ox
97.8 F 80 14 116/50 96
10/16/24 09:50 10/16/24 12:00 10/16/24 12:00 10/16/24 11:00 10/16/24 11:00
Physical Exam
General: Other (as below)
Laboratory Results
-
10/16/24 09:59
10/16/24 09:59
Laboratory Results
Total Bilirubin 0.2 mg/dl (0.2-1.3) 10/16/24 09:59
AST 19 U/L (14-36) 10/16/24 09:59
ALT 16 U/L (0-35) 10/16/24 09:59
Alkaline Phosphatase 56 U/L (38-126) 10/16/24 09:59
Troponin I 0.074 ng/ml H* 10/16/24 09:59
Impression/Plan
-
ROS
General: Denies fever chills night sweats unexpected weight loss, endorses weight gain
Neuro: Denies seizure shaking loss of consciousness dizziness vertigo
Psych: denies depression hallucinations confusion manic episodes
Endocrine: Denies polyuria polydipsia polyphagia heat/cold intolerance
HEENT: Denies blindness visual disturbances epistaxis
Pulmonary: reports exertional dyspnea orthopnea
Cardiovascular: denies chest pain palpitations, reports leg swelling
Hematology: denies signs symptoms of anemia easy bruising/bleeding
Gastrointestinal: denies nausea vomiting diarrhea constipation hematemesis hematochezia melena
Genito-Urinary: denies retention incontinence dysuria
Musculoskeletal: reports joint pain weakness
Dermatology: right abbott abrasion from fall
Physical Exam
General: No pallor, cyanosis, or jaundice.
HEENT: Throat clear. PERRLA Normocephalic atraumatic
NECK: Supple. No JVD Carotid Bruits
RESPIRATORY: Bibasilar crackles, stable respiratory status on 2L
CVS: S1, S2 normal. RRR. No murmur, rub or gallop.
ABDOMEN: Soft, non-tender. No distension. BS+/normal.
EXTREMITIES: No peripheral cyanosis or edema. ecchymosis right abbott
HEALTH SYSTEMS ANALYST: AOx3 conversant coherent
Psych:calm
IMPRESSION:
84F [facility] assisted [facility] Morbid Obesity CAD CABG HFpEF COPD on prn 2L at home HTN HLD NIDDM former smoker present with progressive REESE orthopnea weight gain for the past few weeks. Had a fall during physical therapy, noted hypoxic
requiring oxygen supplementation, severe exercise intolerance, prompting ED eval. VSS on 2L. BNP all time high 6970. CXR suggestive mild CHF. Patient was treated with IV lasix 80 mg with subsequent improvement in sob noted. Troponin elevated
0.074 denies chest pain. No significant EKG changes noted in comparison with prior EKG Mar 2024.
PLAN:
Acute on Chronic HFpEF
Acute Hypoxia 2/2 HF
-Tele
-cont IV lasix
-Cardio eval requested
-daily weight I/O
-Check ECHO
-wean O2 supplementation as tolerated
-PT/OT eval
-cont home metoprolol with holding parameters
hx CAD CABG
cont home ASA IMdur
Troponin elevation
-chest pain free, no acute changes EKG noted
-suspect non-ischemic VT due to heart failure
-0.074 trended flat 0.074, checking 3rd trop
COPD
-no wheezing noted
-not on scheduled inhalers at home
-cont home prn duoneb
HTN
cont lasix metoprolol hydralazine w/ holding parameters
HLD
cont statin fenofibrate
CKD3B
cont bicarb
monitor renal function
NIDDM
Morbid Obesity
check A1c
hold home metformin d/t GFR<30 contraindicated
Insulin sliding scale
GERD
cont PPI
PT/OT
dvt ppx heparin
DNR as per patient
Discussed with patient and patient's brother Dominik
I spent a total of 80 minutes with the patient or on the floor. More than 50% of this time involved counseling and coordination of care.
[2024-10-16 15:20] LABS: Troponin I 0.074 ng/ml
--- NOTE | 2024-10-16 16:34 | CON.CAR ---
Addendum entered and electronically signed by Lux Ferrer MD 10/16/24 20:15:
84-year-old woman admitted with progressive REESE and orthopnea with weight gain in recent weeks. Last seen in our office in March 2024. proBNP 6978, troponin 0.074
PMH: HFpEF hypertension, hyperlipidemia, type 2 diabetes, CKD, prior back pain, peripheral neuropathy
PSH: CABG in 1999 at [facility]
Outpatient medications: Aspirin 81 mg a day, fenofibrate 48 mg daily, furosemide 40 mg a.m. 80 mg p.m., gabapentin 300 4 times daily, hydralazine 25 twice daily, DuoNebs, isosorbide mononitrate 30 mg a day, metformin 1000 mg twice daily, metoprolol
tartrate 100 twice daily, omeprazole, oxycodone, rosuvastatin 20 mg a day, bicarb
119/69, pulse 98, respiratory 23, temp is 36.6, sats are 96%, weight is 96.1 kg, unchanged from March 2024, no acute distress, sitting in chair, leaning forward to use purewick, head neck exam unremarkable, lungs relatively clear, no obvious
murmurs, JVD elevated, abdomen obese and benign, extremities 2+ 3+ edema neuro nonfocal, musculoskeletal intact
Chest x-ray cardiomegaly, poor inspiration, massively obese, possible mild vascular congestion
Hemoglobin 9.1, white count 6.6, platelets 250, potassium 5.1, BUN/creatinine 59 and 1.7, likely baseline, troponin 0.074, proBNP is 6970
ECG: Sinus rhythm, PACs, nonspecific ST and T changes
Echo December 2022: EF 55-60%, paradoxical septal motion, mild LVH, normal RV, normal atria, trace MR, normal aortic valve, could not determine pulmonary artery pressure
Sestamibi study October 2021 moderate size predominantly fixed mildly decreased mid anterior defect, EF 66%
Plan:
She presents with acute on chronic HFpEF with mild anemia underlying CKD. She has a minimally detectable troponin and no acute EKG changes.
Will continue IV furosemide.
Probably best to avoid spironolactone given CKD. Her sodium bicarb represents a substantial salt load and will contribute to HFpEF. Serum bicarbonate is 28, perhaps oral bicarbonate can be reduced.
Not clear that she is a good candidate for an SGLT2 antagonistm, but will need to consider if this has not been considered previously. Currently she is using a Purewick.
She is difficult to interview and has given different stories to different examiners. She describes chest discomfort and her troponin is detectable, but she had a PET/CT stress test last fall that did not show significant ischemia. Therefore will
not be anxious to pursue her elevated troponin at this time.
Last echo was in 2022, will await follow-up study.
Original Note:
Consultation
Consultation Request
Date/Time Consultation Requested: 10/16/2024, 1608,
Date/Time Consultation Performed: 10/16/2024, 1635
Requesting Provider: Dr Levy
Performing Provider: SAIDA Connell for Dr. Ferrer
Reason for Consultation: Heart failure
Medical History
-
Chief Complaint: Shortness of breath and weight gain
History of Present Illness:
Patient is an 84 YOF with PMH of CAD s/p remote CABG, HTN, HLD, type 2 diabetes, obesity, anemia, chronic kidney disease, COPD on home oxygen 2 L, chronic back pain who presents today due to increased dyspnea on exertion and weight gain for the past
few weeks. Sometimes she wakes up short of breath at night and puts her oxygen on with resolution of shortness of breath. Yesterday when she was walking to the bathroom she slipped on the hardwood floors and fell. She had to crawl across the
floor to get the call preez. She was assisted into her bed. She tells me this morning she woke up and had chest pressure. She felt nervous that she could not get out of bed and she thinks that exacerbated the chest pressure. She called 911 and
was brought to . Pro BNP 6970 and chest x-ray showed mild heart failure. She received Lasix 80 IV milligrams in ED with improvement in symptoms. Troponin 0.074. No chest pain. Cardiology consulted for evaluation. Patient lives independently
at [facility] but recently spent 10 days in their rehab facility..
Patient sees Dr. Jaime for cardiovascular care. Had PET CT scan on 05/29/2024 showed normal myocardial perfusion imaging with no fixed or reversible defects, normal systolic function, EF greater than 70%. She was also supposed to get echo but
there was a problem with scheduling and it was not done.
PMH:
Chronic heart failure with preserved ejection fraction
CAD s/p remote CABG
CKD 3a
HTN
HLD
DM 2
Neuropathy
Chronic back pain
Anemia
Remote former smoker
Chronic anemia
Obesity
Chronic leg neuropathy
PMH:
CAD status post remote CABG
Chronic heart failure with preserved EF
CKD stage IIIa
Hypertension
Hyperlipidemia
Diabetes type 2
Diabetic neuropathy
Chronic back pain
Chronic anemia
Remote former smoker
Obesity
Past Medical History
Past Medical History: Other (See HPI)
Past Surgical History: Cardiac (CABG 1999 at [facility]) and Orthopedic
Social History
Tobacco: Former Smoker
Alcohol: Occasional
Drug: Narcotics (chronic pain medication followed by pain management)
Personal:
Living: Alone (independent living at [facility])
Family History
Family History: Other (CVA, AAA)
Allergies / Home Medications
Allergy/AdvReac Type Severity Reaction Status Date / Time
amoxicillin Allergy Anaphylaxis Verified 03/18/24 17:44
bee venom protein (honey bee) Allergy Anaphylaxis Verified 03/18/24 17:44
clindamycin Allergy Anaphylaxis Verified 03/18/24 17:44
Penicillins Allergy Anaphylaxis Verified 03/18/24 17:44
�Medication �Instructions �Recorded �Confirmed �Type
isosorbide mononitrate 30 mg 30 mg PO DAILY Heart 12/30/22 10/16/24 History
tablet,extended release 24 hr Disease/Condition
metoprolol tartrate 100 mg tablet 100 mg PO BID Blood Pressure 12/30/22 10/16/24 History
oxycodone-acetaminophen 5 mg-325 1 tab PO Q6HPRN PRN severe pain 12/30/22 10/16/24 History
mg tablet
sodium bicarbonate 650 mg tablet 650 mg PO BID Electrolyte Repletion 12/30/22 10/16/24 History
therapeutic multivitamin 1 tab PO DAILY Supplement 12/30/22 10/16/24 History
aspirin 81 mg chewable tablet 81 mg PO DAILY Blood Clot 07/24/23 10/16/24 History
Prevention/Tx
cholecalciferol (vitamin D3) 50 50 mcg PO DAILY Supplement 07/24/23 10/16/24 History
mcg (2,000 unit) capsule (Vitamin
D3)
coenzyme Q10 150 mg capsule 300 mg PO QPM Supplement ##0 07/24/23 10/16/24 History
fenofibrate nanocrystallized 48 mg 48 mg PO DAILY High Cholesterol 07/24/23 10/16/24 History
tablet
fluticasone propionate 50 1 spray intranasal BIDPRN PRN 07/24/23 10/16/24 History
mcg/actuation nasal congestion
spray,suspension
furosemide 40 mg tablet 40 mg PO DAILY 03/20/24 10/16/24 History
furosemide 40 mg tablet 80 mg PO QPM 03/20/24 10/16/24 History
gabapentin 300 mg capsule 300 mg PO QID 03/20/24 10/16/24 History
hydralazine 25 mg tablet 25 mg PO BID 03/20/24 10/16/24 History
ipratropium 0.5 mg-albuterol 3 mg 3 ml inhalation R TIDPRN PRN 03/20/24 10/16/24 History
(2.5 mg base)/3 mL nebulization sob/wheezing
soln
metformin 1,000 mg tablet 1,000 mg PO BID 03/20/24 10/16/24 History
rosuvastatin 20 mg tablet 20 mg PO QPM 03/20/24 10/16/24 History
cyanocobalamin (vitamin B-12) 1,000 mcg PO DAILY 10/16/24 10/16/24 History
1,000 mcg tablet
omeprazole 20 mg tablet,delayed 20 mg PO DAILY 10/16/24 10/16/24 History
release
Review of Systems
-
History Source: Patient
Constitutional: No Symptoms
Physical Exam
Vital Signs
Temp Pulse Resp BP Pulse Ox
97.8 F 98 23 119/69 96
10/16/24 09:50 10/16/24 16:00 10/16/24 16:00 10/16/24 15:08 10/16/24 15:10
Lab Results
10/16/24 09:59
10/16/24 09:59
Troponin I 0.074 ng/ml H* 10/16/24 14:45
[id number] Pept 6970 pg/ml 10/16/24 09:59
GEN: No distress, awake, Ox3
HEENT: supple, anicteric, mmm
LUNGS: Rales at bases
CV: Reg, occasional ectopic beats S1/S2, 1/6 syst LSB, no murmur
ABD: soft, BS+, NT/ND
EXT: 1+ lower extremity edema
NEURO: Gross non-focal
SKIN: No rash
Impression / Plan
-
PCP: Dr. Becka Lacy
Cardiology: Dr. Jaime
Impression:
Acute on chronic heart failure preserved EF
Presented 10/16/2024 with dyspnea on exertion and increased lower extremity edema
Chronic heart failure with preserved ejection fraction
CAD s/p remote CABG
CKD 3a
HTN
HLD
DM 2
Neuropathy
Chronic back pain
Anemia
Remote former smoker
Chronic anemia
Obesity
Chronic leg neuropathy
Nuclear stress test 11/16/21: moderate sized predominantly fixed area of mildly decreased perfusion mid anterior wall, EF 66%
Echo 12/31/2022: EF 55-60%, mild cLVH, no significant valvular disease
PET CT scan on 05/29/2024 showed normal myocardial perfusion imaging with no fixed or reversible defects, normal systolic function, EF greater than 70%.
Plan:
Admitted with acute heart failure with preserved ejection fraction
proBNP 6970
Diuresing after Lasix 80 mg IV in ED
Admit to telemetry
Check echo
Troponin 0.074 x 2, continue to trend. Patient currently without chest pain but did have chest pressure this morning prior to presentation. PET CT scan 05/2024 showed normal myocardial perfusion
Having frequent PACs on telemetry, continue to monitor.
Creatinine baseline 1.3-1.5.
Daily BMPs with IV diuresis
-Continue other cardiac meds, ASA 81 mg, hydralazine 25 mg twice daily, isosorbide 30 mg daily, metoprolol tartrate 100 mg twice daily, rosuvastatin 20 mg daily
Data Reviewed
-
EKG: Tracing Personally Visualized and interpreted
Medical Tests (Nuc Med, Echo etc): Image Personally Visualized and interpreted
Labs: Labs Reviewed by me
[2024-10-16 18:06] LABS: Glucose - Point of Care 138 mg/dl (70-99)
[2024-10-16] MEDS: NOVOLOG FLEXPEN-LOW RESISTANCE SC (18:11)
[2024-10-16] MEDS: PROTONIX 40 MG PO (18:48)
[2024-10-16] MEDS: HEPARIN 5000 UNITS SC ×2 (18:48→23:17)
[2024-10-16] MEDS: APRESOLINE PO (20:50)
[2024-10-16] MEDS: LOPRESSOR 100 MG PO (20:51)
[2024-10-16] MEDS: NEURONTIN 300 MG PO (20:52)
[2024-10-16] MEDS: CRESTOR 10 MG PO (20:52)
[2024-10-16] MEDS: SODIUM BICARBONATE 650 MG PO (20:52)
[2024-10-16 21:40] LABS: Glucose - Point of Care 130 mg/dl (70-99)
[2024-10-17] VITALS (8 sets, daily range): BP systolic 86–161; BP diastolic 49–65; PULSE 66; O2SAT 100; BMI 37.3
[2024-10-17 00:17] LABS: Troponin I 0.093 ng/ml
--- NOTE | 2024-10-17 04:25 | DOWNTIME ---
There was a [employer] Downtime on 10/17/2024 from 0100 to 10/18/2023 at 0420 . Downtime documentation of patient's care, including medication administrations, has been reconciled in the electronic record per guidelines. Refer to the
patient's paper chart under the miscellaneous tab to see printed paper medication records and downtime forms.
[2024-10-17 06:30] LABS: Hematocrit 30.5 % (37.0-47.0); Hemoglobin 9.4 g/dL (12.0-16.0); Mean Corp Hgb Conc. 30.8 g/dL (33.0-37.0); Mean Corpuscular Hgb 29.2 pg (27.0-31.0); Mean Corpuscular Volume 94.7 fL (81.0-99.0); Mean Platelet Volume 10.2 fL (7.4-10.4); Platelet Count 247 10^3/uL (130-400); Red Blood Cell Count 3.22 10^6/uL (4.20-5.40); Red Cell Dist. Width 14.9 % (11.5-14.5); White Blood Cell Count 6.6 10^3/uL (4.8-10.8)
[2024-10-17 06:50] LABS: Blood Urea Nitrogen 47 mg/dl (7-17); Calcium 9.8 mg/dl (8.4-10.2); Carbon Dioxide 30 mmol/L (22-30); Chloride 99 mmol/L (98-107); Digoxin 0.5 ng/ml (0.8-2.0); Estimated Creatinine Clearance 38 ml/min; Glucose 117 mg/dl (70-99); Phosphorus 3.5 mg/dl (2.5-4.5); Potassium 4.8 mmol/L (3.5-5.1); Sodium 136 mmol/L (135-145); eGFR 44.91
--- NOTE | 2024-10-17 06:54 | W.PN.HOSP.TC ---
Today's Communication/Plan
-
diuresis as per Cardio
PT/OT
Blood pressure control
wean O2 as tolerated
Assessment / Plan
Assessment / Plan
Physical Exam
General: No pallor, cyanosis, or jaundice.
HEENT: Throat clear. PERRLA Normocephalic atraumatic
NECK: Supple. No JVD Carotid Bruits
RESPIRATORY: Bibasilar crackles, stable respiratory status on 2L
CVS: S1, S2 normal. RRR. No murmur, rub or gallop.
ABDOMEN: Soft, non-tender. No distension. BS+/normal.
EXTREMITIES: No peripheral cyanosis or edema. ecchymosis right abbott
FIXTURE DESIGNER: AOx3 conversant coherent
Psych:calm
IMPRESSION:
84F [facility] assisted [facility] Morbid Obesity CAD CABG HFpEF COPD on prn 2L at home HTN HLD NIDDM former smoker present with progressive REESE orthopnea weight gain for the past few weeks. Had a fall during physical therapy, noted hypoxic
requiring oxygen supplementation, severe exercise intolerance, prompting ED eval. VSS on 2L. BNP all time high 6970. CXR suggestive mild CHF. Patient was treated with IV lasix 80 mg with subsequent improvement in sob noted. Troponin elevated
0.074 denies chest pain. No significant EKG changes noted in comparison with prior EKG Mar 2024.
PLAN:
Acute on Chronic HFpEF
Acute Hypoxia 2/2 HF
-Tele
-cont IV lasix
-Cardio eval appreciated
-daily weight I/O
-ECHO appreciated EF 55-60% stage I diastolic dysfunction, no significant change compared to prior study 12/2022
-wean O2 supplementation as tolerated
-PT/OT eval
-cont home metoprolol with holding parameters
hx CAD CABG
cont home ASA IMdur
Troponin elevation
-chest pain free, no acute changes EKG noted
-suspect non-ischemic IN due to heart failure
-0.074 trended flat 0.074, checking 3rd trop
COPD
-no wheezing noted
-not on scheduled inhalers at home
-cont home prn duoneb
HTN
cont lasix metoprolol hydralazine w/ holding parameters
HLD
cont statin fenofibrate
CKD3B
home bicarb discontinued, unnecessary at this time
monitor renal function
hx NIDDM
Morbid Obesity
A1c 6.3 (prediabetes)
hold Metformin
Insulin sliding scale
GERD
cont PPI
PT/OT appreciated home health
dvt ppx heparin
DNR as per patient
I spent a total of 50 minutes with the patient or on the floor. More than 50% of this time involved counseling and coordination of care.
Anticipated Discharge: 24 - 48 hours
Subjective/Interval History
-
Date of Service: October 17, 2024
no acute distress resting comfortably in bed. Reports feeling improvement in overall symptoms.
Objective Data
-
Labs:
Laboratory Results
10/17/24
05:42
WBC 6.6
Hgb 9.4 L
Hct 30.5 L
Plt Count 247
Sodium 136
Potassium 4.8
Chloride 99
Carbon Dioxide 30
BUN 47 H
Creatinine 1.2 H
Glucose 117 H
Calcium 9.8
Vital Signs:
Vital Signs
Temp Pulse Resp BP Pulse Ox
98.6 F 76 20 137/49 100
10/17/24 03:38 10/17/24 03:38 10/17/24 03:38 10/17/24 03:38 10/17/24 03:38
I&O
10/15/24 10/16/24 10/17/24
06:59 06:59 06:59
Output Total 800 / 800
Balance -800 / -800
[2024-10-17 07:16] LABS: Glucose - Point of Care 189 mg/dl (70-99)
[2024-10-17 07:18] LABS: TSH Reflex To Free T4 1.78 uIU/ml (0.47-4.68)
[2024-10-17] MEDS: IMDUR (EXTENDED RELEASE) 30 MG PO (08:13)
[2024-10-17] MEDS: SODIUM BICARBONATE 650 MG PO (08:14)
[2024-10-17] MEDS: LOPRESSOR 100 MG PO ×2 (08:14→20:24)
[2024-10-17] MEDS: NEURONTIN 300 MG PO ×2 (08:14→20:23)
[2024-10-17] MEDS: PROTONIX 40 MG PO (08:14)
[2024-10-17] MEDS: THERAGRAN 1 TABLET PO (08:14)
[2024-10-17] MEDS: APRESOLINE 25 MG PO ×2 (08:14→20:25)
[2024-10-17] MEDS: VITAMIN D3 (cholecalciferol) 50 MCG PO (08:14)
[2024-10-17] MEDS: HEPARIN 5000 UNITS SC ×3 (08:14→22:40)
[2024-10-17] MEDS: VITAMIN B-12 1000 MCG PO (08:15)
[2024-10-17] MEDS: LASIX 80 MG IV (08:15)
[2024-10-17] MEDS: DESENEX/MITRAZOL/ZEASORB 1 APPLIC TOPICAL ×2 (08:15→20:25)
[2024-10-17] MEDS: LOW STRENGTH ASPIRIN 81 MG PO (08:15)
[2024-10-17] MEDS: NOVOLOG FLEXPEN-LOW RESISTANCE 1 UNITS SC ×2 (08:25→16:34)
--- NOTE | 2024-10-17 09:34 | W.PN.CARDCBS ---
Addendum entered and electronically signed by Mike Rendon MD 10/17/24 12:30:
I saw and examined the patient.
The Rn Mds Coordinator's note was reviewed and I agree with the note.
Comment: Briefly, 84-year-old woman past medical history of heart failure preserved ejection fraction, CAD with prior CABG, hypertension, hyperlipidemia, DM2, CKD who presents with worsening dyspnea on exertion and lower extremity edema consistent
with acute on chronic heart failure
Patient appears volume overloaded on exam and is requiring supplemental oxygen, 3 L via nasal cannula
Would continue IV Lasix -okay to continue once daily as she is responding well to current dosing
Wean oxygen as able
Check daily standing weights
Monitor creatinine and electrolytes -creatinine is improving with diuresis suggestive of cardiorenal syndrome
Check echo
Would be hesitant to add MRA or SGLT2 during this admission given CKD
Discussed with patient that sodium bicarbonate may be contributing to her volume overload and ideally we would decrease or discontinue this medication
Elevated troponin is noted, trend is overall flat, most recently 0.093
Not reporting any chest discomfort and ECG is not overtly ischemic
Suspect nonischemic myocardial injury troponin elevation in the setting of acute heart failure and CKD
Continue aspirin and high intensity statin for treatment of known CAD
Original Note:
Today's Communication / Plan
-
Ongoing diuresis
Check standing scale weights
52 min in face to face and coordination of care
Impression / Plan
-
PCP: Dr. Becka Lacy
Cardiology: Dr. Jaime
Impression:
Admitted with REESE and LE edema 10/16/24
Acute on chronic HFpEF
CAD s/p remote CABG
CKD 3a
HTN
HLD
DM 2
Neuropathy
Chronic back pain
Anemia
Remote former smoker
Chronic anemia
Obesity
Chronic leg neuropathy
Nuclear stress test 11/16/21: moderate sized predominantly fixed area of mildly decreased perfusion mid anterior wall, EF 66%
PET CT scan on 05/29/2024: showed normal myocardial perfusion imaging with no fixed or reversible defects, normal systolic function, EF greater than 70%.
Echo 12/31/2022: EF 55-60%, mild cLVH, no significant valvular disease
Echo 10/17/24: Study pending
Plan:
-Patient came to [facility] from [facility] with falls, SOB and CP on 10/16/24. She is being diuresed for acute HF.
-Weight is down 6 lbs overnight if weight is correct. Patient is below previous dry weight. Current weight is 203 lbs on 10/17/24.
-Cont Lasix 80 mg IV daily. Patient was taking Lasix 40 mg PO daily prior to admission
-Echo pending, but EF was 55-60% back in 2022
-Outpatient dose of Lopressor 100 mg BID has been continued. Consider changing to Toprol XL or Coreg pending echo.
-Patient is not chronically on ADRIANE/ARB, but is on a regimen of Imdur ER 30 mg daily and hydralazine 25 mg BID which have been continued
-Will not add spironolactone due to CKD
-Will ask CM to check on cost of Farxiga 10 mg daily to see if this is affordable.
-Troponin up to 0.093, will repeat in AM. PET stress 05/2024 showed normal myocardial perfusion. Will manage as a nonischemic myocardial injury Troponin elevation.
HPI: Patient is an 84 YOF with PMH of CAD s/p remote CABG, HTN, HLD, type 2 diabetes, obesity, anemia, chronic kidney disease, COPD on home oxygen 2 L, chronic back pain who presents today due to increased dyspnea on exertion and weight gain for the
past few weeks. Sometimes she wakes up short of breath at night and puts her oxygen on with resolution of shortness of breath. Yesterday when she was walking to the bathroom she slipped on the hardwood floors and fell. She had to crawl across the
floor to get the call perez. She was assisted into her bed. She tells me this morning she woke up and had chest pressure. She felt nervous that she could not get out of bed and she thinks that exacerbated the chest pressure. She called 911 and
was brought to . Pro BNP 6970 and chest x-ray showed mild heart failure. She received Lasix 80 IV milligrams in ED with improvement in symptoms. Troponin 0.074. No chest pain. Cardiology consulted for evaluation. Patient lives independently
at [facility] but recently spent 10 days in their rehab facility. Patient sees Dr. Jaime for cardiovascular care. Had PET CT scan on 05/29/2024 showed normal myocardial perfusion imaging with no fixed or reversible defects, normal systolic
function, EF greater than 70%. She was also supposed to get echo but there was a problem with scheduling and it was not done.
Progress Note - Engine Specialist
Subjective
Date of Service: October 17, 2024
No chest pain
Objective
Labs:
10/17/24 05:42
10/17/24 05:42
Labs
Hgb 9.4 g/dL (12.0-16.0) L 10/17/24 05:42
Hct 30.5 % (37.0-47.0) L 10/17/24 05:42
Plt Count 247 10^3/uL (130-400) 10/17/24 05:42
Sodium 136 mmol/L (135-145) 10/17/24 05:42
Potassium 4.8 mmol/L (3.5-5.1) 10/17/24 05:42
BUN 47 mg/dl (7-17) H 10/17/24 05:42
Creatinine 1.2 mg/dL (0.6-1.0) H 10/17/24 05:42
Glucose 117 mg/dl (70-99) H 10/17/24 05:42
Digoxin 0.5 ng/ml (0.8-2.0) L 10/17/24 05:42
Troponins
10/16/24 10/16/24 10/16/24
09:59 14:45 23:46
Troponin I 0.074 H* 0.074 H* 0.093 H*
Vital Signs and I&O:
Vital Signs
Temp Pulse Resp BP Pulse Ox
97.9 F 85 20 153/65 97
10/17/24 07:15 10/17/24 08:14 10/17/24 07:15 10/17/24 08:14 10/17/24 07:15
Vital Signs
Temp Pulse Resp BP Pulse Ox
97.9 F 85 20 153/65 97
10/17/24 07:15 10/17/24 08:14 10/17/24 07:15 10/17/24 08:14 10/17/24 07:15
Intake & Output
10/15/24 10/16/24 10/17/24 10/18/24
06:59 06:59 06:59 06:59
Intake Total 720 / 720
Output Total 800 / 800 1375 / 1375
Balance -800 / -800 -655 / -655
Physical Exam
Physical Exam
GEN: AAOx3
HEENT: mmm
LUNGS: 3 L NC. No audible wheeze
CV: SR on tele
ABD: ND
EXT: +1-2 edema B/L LE
NEURO: Gross non-focal
SKIN: No rash
[2024-10-17 10:00] LABS: Glycohemoglobin (HgbA1c) 6.3 % (4.0-5.6)
[2024-10-17 11:39] LABS: Glucose - Point of Care 142 mg/dl (70-99)
[2024-10-17] MEDS: NOVOLOG FLEXPEN-LOW RESISTANCE SC (12:01)
[2024-10-17] MEDS: PERCOCET 5/325 1 TABLET PO ×2 (15:20→22:39)
[2024-10-17 15:54] LABS: Glucose - Point of Care 176 mg/dl (70-99)
--- NOTE | 2024-10-17 16:32 | CM ---
Alert awake oriented patient who lives at [facility]. She is independent in activates of daily living.She does not drive .She used a walker here in hospital.
Had [facility] in past . No SNF hx
Pharmacy [facility]
PCP Dr Khan
PLAN Home with no needs
--- NOTE | 2024-10-17 16:37 | CM ---
Alert awake oriented patient who lives independent living at [facility]. She is independent in activates of daily living.She uses walker home oxygen with [place] [facility].
[facility]NEY in past .[facility] hx
Pharmacy [facility]
PCP Dr Lacy
PLAN REturn to [facility]
[2024-10-17] MEDS: CRESTOR 10 MG PO (17:04)
[2024-10-17 21:58] LABS: Glucose - Point of Care 122 mg/dl (70-99)
[2024-10-18 03:55] VITALS: BP 138/70
[2024-10-18 05:44] VITALS: BMI 36.6
--- NOTE | 2024-10-18 07:20 | W.PN.HOSP.TC ---
Today's Communication/Plan
-
see note
Assessment / Plan
Assessment / Plan
Physical Exam
General: No pallor, cyanosis, or jaundice.
HEENT: Throat clear. PERRLA Normocephalic atraumatic
NECK: Supple. No JVD Carotid Bruits
RESPIRATORY: Bibasilar crackles, stable respiratory status on 2L
CVS: S1, S2 normal. RRR. No murmur, rub or gallop.
ABDOMEN: Soft, non-tender. No distension. BS+/normal.
EXTREMITIES: No peripheral cyanosis or edema. ecchymosis right abbott
SYSTEM DESIGNER: AOx3 conversant coherent
Psych:calm
IMPRESSION:
84F [facility] assisted living Morbid Obesity CAD CABG HFpEF COPD on prn 2L at home HTN HLD NIDDM former smoker present with progressive REESE orthopnea weight gain for the past few weeks. Had a fall during physical therapy, noted hypoxic
requiring oxygen supplementation, severe exercise intolerance, prompting ED eval. VSS on 2L. BNP all time high 6970. CXR suggestive mild CHF. Patient was treated with IV lasix 80 mg with subsequent improvement in sob noted. Troponin elevated
0.074 denies chest pain. No significant EKG changes noted in comparison with prior EKG Mar 2024.
PLAN:
Acute on Chronic HFpEF
Acute Hypoxia 2/2 HF
-Tele
-cont IV lasix
-Cardio eval appreciated
-daily weight I/O
-ECHO appreciated EF 55-60% stage I diastolic dysfunction, no significant change compared to prior study 12/2022
-wean O2 supplementation as tolerated
-PT/OT eval
-cont home metoprolol with holding parameters
Left toe bruising from fall
-Foot X-ray appreciated no fracture of dislovation
hx CAD CABG
cont home ASA IMdur
Troponin elevation
-chest pain free, no acute changes EKG noted
-likely non-ischemic NM due to heart failure
-Troponin trended to peak 0.093 since trended down
COPD
-no wheezing noted
-not on scheduled inhalers at home
-cont home prn duoneb
HTN
cont lasix metoprolol hydralazine w/ holding parameters
HLD
cont statin fenofibrate
CKD3B
home bicarb discontinued, unnecessary at this time
monitor renal function
hx NIDDM
Morbid Obesity
A1c 6.3 (prediabetes)
hold Metformin
Insulin sliding scale
GERD
cont PPI
PT/OT appreciated home health
dvt ppx heparin
DNR as per patient
I spent a total of 45 minutes with the patient or on the floor. More than 50% of this time involved counseling and coordination of care.
Anticipated Discharge: Within 24 hours
Subjective/Interval History
-
Date of Service: October 18, 2024
No acute distress sitting up comfortably in chair. Overall reports feeling well.
Objective Data
-
Labs:
Laboratory Results
10/18/24
06:47
WBC Pending
Hgb Pending
Hct Pending
Plt Count Pending
Sodium Pending
Potassium Pending
Chloride Pending
Carbon Dioxide Pending
BUN Pending
Creatinine Pending
Glucose Pending
Calcium Pending
Vital Signs:
Vital Signs
Temp Pulse Resp BP Pulse Ox
98.0 F 70 18 138/70 98
10/18/24 03:55 10/18/24 03:55 10/18/24 03:55 10/18/24 03:55 10/18/24 03:55
I&O
10/17/24 10/18/24 10/19/24
06:59 06:59 06:59
Intake Total 1919 / 1919
Output Total 800 / 800 3475 / 3475
Balance -800 / -800 -1555 / -1555
[2024-10-18 07:24] LABS: Blood Urea Nitrogen 43 mg/dl (7-17); Calcium 9.8 mg/dl (8.4-10.2); Carbon Dioxide 32 mmol/L (22-30); Chloride 99 mmol/L (98-107); Estimated Creatinine Clearance 41 ml/min; Glucose 123 mg/dl (70-99); Phosphorus 2.9 mg/dl (2.5-4.5); Potassium 4.4 mmol/L (3.5-5.1); Sodium 136 mmol/L (135-145); eGFR 49.86
[2024-10-18 07:27] LABS: Troponin I 0.047 ng/ml
[2024-10-18 07:30] VITALS: BP 152/69
[2024-10-18 07:37] LABS: Hematocrit 31.4 % (37.0-47.0); Hemoglobin 9.7 g/dL (12.0-16.0); Mean Corp Hgb Conc. 30.9 g/dL (33.0-37.0); Mean Corpuscular Hgb 29.5 pg (27.0-31.0); Mean Corpuscular Volume 95.4 fL (81.0-99.0); Mean Platelet Volume 10.2 fL (7.4-10.4); Platelet Count 263 10^3/uL (130-400); Red Blood Cell Count 3.29 10^6/uL (4.20-5.40); Red Cell Dist. Width 14.6 % (11.5-14.5); White Blood Cell Count 6.3 10^3/uL (4.8-10.8)
[2024-10-18 07:37] LABS: Glucose - Point of Care 113 mg/dl (70-99)
[2024-10-18 07:55] LABS: Digoxin < 0.4 ng/ml (0.8-2.0)
[2024-10-18] MEDS: LASIX 80 MG IV (08:43)
[2024-10-18] MEDS: NEURONTIN 300 MG PO ×2 (08:43→20:04)
[2024-10-18] MEDS: HEPARIN 5000 UNITS SC ×2 (08:46→15:06)
[2024-10-18] MEDS: PERCOCET 5/325 1 TABLET PO ×2 (08:47→18:10)
[2024-10-18] MEDS: APRESOLINE 25 MG PO ×2 (08:47→20:04)
[2024-10-18] MEDS: VITAMIN B-12 1000 MCG PO (08:48)
[2024-10-18] MEDS: LOPRESSOR 100 MG PO ×2 (08:48→20:04)
[2024-10-18] MEDS: VITAMIN D3 (cholecalciferol) 50 MCG PO (08:48)
[2024-10-18] MEDS: THERAGRAN 1 TABLET PO (08:48)
[2024-10-18] MEDS: LOW STRENGTH ASPIRIN 81 MG PO (08:48)
[2024-10-18] MEDS: PROTONIX 40 MG PO (08:48)
[2024-10-18] MEDS: IMDUR (EXTENDED RELEASE) 30 MG PO (08:49)
[2024-10-18] MEDS: NOVOLOG FLEXPEN-LOW RESISTANCE SC ×2 (08:50→12:40)
--- NOTE | 2024-10-18 08:50 | W.PN.CARDCBS ---
Addendum entered and electronically signed by Lux Ferrer MD 10/18/24 11:53:
Patient was not taking 120 mg of furosemide daily recorded in the summary sheet. She was taking a total of 60 mg in divided doses.
Recommend furosemide 60 mg twice daily at discharge.
Addendum entered and electronically signed by Lux Ferrer MD 10/18/24 11:47:
84-year-old woman who lives at [facility] admitted with acute on chronic HFpEF, proBNP 7000. Creatinine was 1.7 at admission. She does not feel ready to go home, but dyspnea is improved. She still feels weak. She states she has never been on
Farxiga.
PMH: HFpEF, hypertension, hyperlipidemia, diabetes, CKD, peripheral neuropathy with back pain
PSH: CABG at [facility] in 1999
Medications: Aspirin 81 mg a day, vitamin D, vitamin B12, furosemide 80 IV daily, gabapentin, hydralazine 25 twice daily, Imdur 30 mg a day, metoprolol tartrate 100 mg twice daily, rosuvastatin 10 mg at bedtime, subcu heparin, pantoprazole, bicarb
has been discontinued, Farxiga currently on hold
152/69, 133/57, pulse 82, respiratory 18, afebrile, intake and output -0.9 L, weight is 90.8 kg, if accurate down 1.5 kg, admission weight was 96.1 kg, no distress, she is wheezing bilaterally,No murmurs
Hemoglobin 9.7, platelets 263, BUN and creatinine are 43 and 1.1, bicarbonate is 32, troponin is 0.047, peak was 0.093, digoxin level is less than 0.4, but patient not on digoxin
SGLT2 antagonist currently on hold, would restart if okay with hospitalist
Oral furosemide, and discharge? At admission furosemide was 80/40, increase hydralazine
Plan:
Overall she looks improved and renal function is better.
She denies that she has been on Farxiga. Case management to laurent. If affordable, should start Farxiga 10 mg daily in AM.
Will transition to oral furosemide in a.m., 80 mg twice daily. Prior to admission was 80 mg and 40 mg.
Increase hydralazine to 50 mg twice daily
Stay off bicarb, which may help with HFpEF.
Recommended cardiac meds at discharge:
Aspirin 81 mg a day
Furosemide 80 mg twice daily (increased dose)
hydralazine 50 mg twice daily (higher dose)
Isosorbide mononitrate 30 mg daily
Metoprolol tartrate 100 mg twice daily
Farxiga 10 mg a day (new)
Stop sodium bicarbonate
We will arrange for cardiac follow-up.
Please check BMP in 1 week
Original Note:
Today's Communication / Plan
-
Continue diuresis
Will laurent SGLT2 inhibitor
Impression / Plan
-
PCP: Dr. Becka Lacy
Cardiology: Dr. Jaime
Impression:
Admitted with REESE and LE edema 10/16/24
Acute on chronic HFpEF
CAD s/p remote CABG
CKD 3a
HTN
HLD
DM 2
Neuropathy
Chronic back pain
Anemia
Remote former smoker
Chronic anemia
Obesity
Chronic leg neuropathy
Nuclear stress test 11/16/21: moderate sized predominantly fixed area of mildly decreased perfusion mid anterior wall, EF 66%
PET CT scan on 05/29/2024: showed normal myocardial perfusion imaging with no fixed or reversible defects, normal systolic function, EF greater than 70%.
Echo 12/31/2022: EF 55-60%, mild cLVH, no significant valvular disease
Echo 10/17/24: EF 55-60%, mild TR, PAP 35-40, no change c/w 12/2022
Plan:
-Patient came to [facility] from [facility] with falls, SOB and CP on 10/16/24. She is being diuresed for acute HF.
-Weight is down 3 lbs overnight, down 9 lbs since admit, Patient is below previous dry weight (she reports dry wt 210 lbs but unclear when this was from). Current weight is 200 lbs on 10/18/24.
-Cont Lasix 80 mg IV daily. Patient was taking Lasix 40 mg PO daily prior to admission, will likely need to increase outpatient diuretic dose
-Creatinine improving, 1.7 on admission 08/18/2024, today 1.1
-Echo 10/17/2024 stable, EF 55-60%
-Outpatient dose of Lopressor 100 mg BID has been continued. Consider changing to Toprol XL or Coreg
-Patient is not chronically on ADRIANE/ARB, but is on a regimen of Imdur ER 30 mg daily and hydralazine 25 mg BID which have been continued
-Will not add spironolactone due to CKD
-Will ask CM to check on cost of Farxiga 10 mg daily to see if this is affordable. Patient denies history of UTI
-Troponin peak 0.093, repeat 0.047 today, 10/18/2024. PET stress 05/2024 showed normal myocardial perfusion. Will manage as a nonischemic myocardial injury Troponin elevation in setting of acute HF and ELIZABETH
-Patient reports chest pressure has resolved
�Telemetry personally reviewed, normal sinus rhythm, heart rates 60s to 80s 90s, PVCs
-cont ASA, statin, BB, Imdur for known h/o CAD
HPI: Patient is an 84 YOF with PMH of CAD s/p remote CABG, HTN, HLD, type 2 diabetes, obesity, anemia, chronic kidney disease, COPD on home oxygen 2 L, chronic back pain who presents today due to increased dyspnea on exertion and weight gain for the
past few weeks. Sometimes she wakes up short of breath at night and puts her oxygen on with resolution of shortness of breath. Yesterday when she was walking to the bathroom she slipped on the hardwood floors and fell. She had to crawl across the
floor to get the call perez. She was assisted into her bed. She tells me this morning she woke up and had chest pressure. She felt nervous that she could not get out of bed and she thinks that exacerbated the chest pressure. She called 911 and
was brought to . Pro BNP 6970 and chest x-ray showed mild heart failure. She received Lasix 80 IV milligrams in ED with improvement in symptoms. Troponin 0.074. No chest pain. Cardiology consulted for evaluation. Patient lives independently
at [facility] but recently spent 10 days in their rehab facility. Patient sees Dr. Jaime for cardiovascular care. Had PET CT scan on 05/29/2024 showed normal myocardial perfusion imaging with no fixed or reversible defects, normal systolic
function, EF greater than 70%. She was also supposed to get echo but there was a problem with scheduling and it was not done.
Progress Note - Abalone Fisherman
Subjective
Date of Service: October 18, 2024
Continues to [facility], weight down 9 pounds since admission
Echocardiogram stable with EF 55 to 60%
Denies chest pain
Objective
Labs:
10/18/24 06:47
10/18/24 06:47
Labs
Hgb 9.7 g/dL (12.0-16.0) L 10/18/24 06:47
Hct 31.4 % (37.0-47.0) L 10/18/24 06:47
Plt Count 263 10^3/uL (130-400) 10/18/24 06:47
Sodium 136 mmol/L (135-145) 10/18/24 06:47
Potassium 4.4 mmol/L (3.5-5.1) 10/18/24 06:47
BUN 43 mg/dl (7-17) H 10/18/24 06:47
Creatinine 1.1 mg/dL (0.6-1.0) H 10/18/24 06:47
Glucose 123 mg/dl (70-99) H 10/18/24 06:47
Digoxin < 0.4 ng/ml (0.8-2.0) L 10/18/24 06:47
Troponins
10/16/24 10/16/24 10/16/24
09:59 14:45 23:46
Troponin I 0.074 H* 0.074 H* 0.093 H*
10/18/24
06:47
Troponin I 0.047 H*
Vital Signs and I&O:
Vital Signs
Temp Pulse Resp BP Pulse Ox
98.6 F 82 18 152/69 96
10/18/24 07:30 10/18/24 07:30 10/18/24 07:30 10/18/24 07:30 10/18/24 07:30
Vital Signs
Temp Pulse Resp BP Pulse Ox
98.6 F 82 18 152/69 96
10/18/24 07:30 10/18/24 07:30 10/18/24 07:30 10/18/24 07:30 10/18/24 07:30
Intake & Output
10/16/24 10/17/24 10/18/24 10/19/24
06:59 06:59 06:59 06:59
Intake Total 1919 / 1919
Output Total 800 / 800 3475 / 3475
Balance -800 / -800 -1555 / -1555
Physical Exam
Physical Exam
GEN: No distress, awake, Ox3
HEENT: supple, anicteric, mmm
LUNGS: Bibasilar rales
CV: Reg, S1/S2, 1/6 syst LSB, no murmur
ABD: soft, BS+, NT/ND
EXT: Trace bilateral lower extremity edema
NEURO: Gross non-focal
SKIN: Laceration right abbott from fall last week
[2024-10-18] MEDS: DESENEX/MITRAZOL/ZEASORB 1 APPLIC TOPICAL ×2 (08:51→20:15)
[2024-10-18 12:12] LABS: Glucose - Point of Care 141 mg/dl (70-99)
[2024-10-18 12:34] VITALS: BP 124/55
[2024-10-18] MEDS: BENADRYL 25 MG PO (12:43)
[2024-10-18 15:05] VITALS: BP 101/53
[2024-10-18 16:21] LABS: Glucose - Point of Care 163 mg/dl (70-99)
[2024-10-18] MEDS: NOVOLOG FLEXPEN-LOW RESISTANCE 1 UNITS SC (17:40)
[2024-10-18] MEDS: CRESTOR 10 MG PO (17:59)
[2024-10-18 19:37] VITALS: BP 158/64
[2024-10-18 21:53] LABS: Glucose - Point of Care 136 mg/dl (70-99)
[2024-10-18 23:24] VITALS: BP 151/60
[2024-10-19] VITALS (7 sets, daily range): BP systolic 96–148; BP diastolic 50–78; PULSE 65; O2SAT 96; BMI 37.0
[2024-10-19] MEDS: PERCOCET 5/325 1 TABLET PO ×3 (00:20→23:22)
[2024-10-19] MEDS: HEPARIN 5000 UNITS SC ×4 (00:20→23:22)
[2024-10-19] MEDS: MIRALAX 17 GRAMS PO (00:21)
--- NOTE | 2024-10-19 04:55 | PTCARENOTE ---
AAO x 4. VSS, on 2 L NC. Lungs with coarse crackles in the bases, expiratory wheezes present. Patient complains of back pain--PRN Percocet administered for pain management. Q 2 hour turns. External catheter changed, draining clear yellow urine. PRN
miralax administered for reported abdominal fullness and constipation, per the patient. Bed in lowest position. Bed alarm on. call perez and personal belongings within reach.
[2024-10-19 06:16] LABS: Hematocrit 29.3 % (37.0-47.0); Hemoglobin 9.2 g/dL (12.0-16.0); Mean Corp Hgb Conc. 31.4 g/dL (33.0-37.0); Mean Corpuscular Hgb 29.5 pg (27.0-31.0); Mean Corpuscular Volume 93.9 fL (81.0-99.0); Platelet Count 258 10^3/uL (130-400); Red Blood Cell Count 3.12 10^6/uL (4.20-5.40); Red Cell Dist. Width 14.6 % (11.5-14.5); White Blood Cell Count 6.7 10^3/uL (4.8-10.8)
[2024-10-19 06:41] LABS: Blood Urea Nitrogen 45 mg/dl (7-17); Calcium 9.7 mg/dl (8.4-10.2); Carbon Dioxide 31 mmol/L (22-30); Chloride 96 mmol/L (98-107); Estimated Creatinine Clearance 37 ml/min; Glucose 109 mg/dl (70-99); Phosphorus 3.5 mg/dl (2.5-4.5); Potassium 4.3 mmol/L (3.5-5.1); Sodium 133 mmol/L (135-145); eGFR 44.91
[2024-10-19 06:43] LABS: Digoxin 0.4 ng/ml (0.8-2.0)
--- NOTE | 2024-10-19 07:18 | W.PN.HOSP.TC ---
Today's Communication/Plan
-
wean O2 as tolerated
cont diuresis
bengay-like cream left knee
PT/OT
discharge planning
Assessment / Plan
Assessment / Plan
Physical Exam
General: No pallor, cyanosis, or jaundice.
HEENT: Throat clear. PERRLA Normocephalic atraumatic
NECK: Supple. No JVD Carotid Bruits
RESPIRATORY: Bibasilar crackles, stable respiratory status on 2L
CVS: S1, S2 normal. RRR. No murmur, rub or gallop.
ABDOMEN: Soft, non-tender. No distension. BS+/normal.
EXTREMITIES: No peripheral cyanosis or edema. ecchymosis right abbott
PIPE CLEANER: AOx3 conversant coherent
Psych:calm
IMPRESSION:
84F [facility] assisted living Morbid Obesity CAD CABG HFpEF COPD on prn 2L at home HTN HLD NIDDM former smoker present with progressive REESE orthopnea weight gain for the past few weeks. Had a fall during physical therapy, noted hypoxic
requiring oxygen supplementation, severe exercise intolerance, prompting ED eval. VSS on 2L. BNP all time high 6970. CXR suggestive mild CHF. Patient was treated with IV lasix 80 mg with subsequent improvement in sob noted. Troponin elevated
0.074 denies chest pain. No significant EKG changes noted in comparison with prior EKG Mar 2024.
PLAN:
Acute on Chronic HFpEF
Acute Hypoxia 2/2 HF
-Tele
-Cardio eval appreciated IV Lasix transitioned to PO, Farxiga added.
-daily weight I/O
-ECHO appreciated EF 55-60% stage I diastolic dysfunction, no significant change compared to prior study 12/2022
-wean O2 supplementation as tolerated
-PT/OT eval
-cont home metoprolol with holding parameters
Left toe bruising from fall
-Foot X-ray appreciated no fracture of dislocation
Left knee Pain arthritis recent knee injection prior to hospitalization
-bengay like cream QID
-cont PT/OT
hx CAD CABG
cont home ASA IMdur
Troponin elevation
-chest pain free, no acute changes EKG noted
-likely non-ischemic [place] due to heart failure
-Troponin trended to peak 0.093 since trended down
COPD
-no wheezing noted
-not on scheduled inhalers at home
-cont home prn duoneb
HTN
cont lasix metoprolol hydralazine w/ holding parameters
HLD
cont statin fenofibrate
CKD3B
home bicarb discontinued, unnecessary at this time
monitor renal function
hx NIDDM
Morbid Obesity
A1c 6.3 (prediabetes)
hold Metformin
Insulin sliding scale
GERD
cont PPI
PT/OT SNF rehab (patient prefers home health)
dvt ppx heparin
DNR as per patient
I spent a total of 45 minutes with the patient or on the floor. More than 50% of this time involved counseling and coordination of care.
Anticipated Discharge: 24 - 48 hours
Subjective/Interval History
-
Date of Service: October 19, 2024
Reports left knee pain. remains oxygen dependent 2L.
Objective Data
-
Labs:
Laboratory Results
10/19/24
05:41
WBC 6.7
Hgb 9.2 L
Hct 29.3 L
Plt Count 258
Sodium 133 L
Potassium 4.3
Chloride 96 L
Carbon Dioxide 31 H
BUN 45 H
Creatinine 1.2 H
Glucose 109 H
Calcium 9.7
Vital Signs:
Vital Signs
Temp Pulse Resp BP Pulse Ox
98.2 F 73 18 148/78 96
10/19/24 03:53 10/19/24 03:53 10/19/24 03:53 10/19/24 03:53 10/19/24 03:53
I&O
10/18/24 10/19/24 10/20/24
06:59 06:59 06:59
Intake Total 1919 / 1919 930 / 930
Output Total 3475 / 3475 400 / 400
Balance -1555 / -1555 530 / 530
[2024-10-19 08:11] LABS: Glucose - Point of Care 118 mg/dl (70-99)
[2024-10-19] MEDS: NOVOLOG FLEXPEN-LOW RESISTANCE SC ×2 (08:57→17:43)
[2024-10-19] MEDS: PROTONIX 40 MG PO (08:58)
[2024-10-19] MEDS: APRESOLINE PO ×2 (09:02→20:25)
--- NOTE | 2024-10-19 09:02 | PN.CDI ---
CDI
- -
CDI:
Physician Documentation Request
Admit Date: 10/16/24 16:16
Dear Doctor Cam,
Patient admitted for heart failure.
H&P: 'CKD3B, cont bicarb, monitor renal function'
Laboratory Tests
10/16/24 10/18/24
09:59 06:47
Creatinine 1.7 H 1.1 H
Clarify which of the following accurately represents the patient's renal status:
____ - ELIZABETH on CKD 3B
____ - Rise in creatinine only
____ - Other
Criteria for ELIZABETH*
1 Increase in serum creatinine by > or = to 0.3 mg/dL (> or = to 26.5 micromol/L) within 48 hours, OR
2 Increase in serum creatinine to > or = to 1.5 times baseline, which is known or presumed to have occurred within 7 days, OR
3 Urine volume < 0.5 nL/kg/hour for six hours
Stages of Chronic Kidney Disease*
Level Description GFR
G1 Normal or High >90
G2 Mildly decreased 60-89
G3a Mildly to moderately decreased 45-59
G3b Moderately to severely decreased 30-44
G4 Severely decreased 15-29
G5 Kidney failure <15
Use of terms such as suspected, likely, concern for, or probable (associated with a specific diagnosis that is being evaluated, monitored, or treated as if it exists) are acceptable and can be coded in the inpatient setting, when documented at the
time of discharge.
Thank you,
Evonne Ponce RN, BSN
CDI Specialist
Available via [employer] text
Please use your independent medical judgment in providing your response.
*Source: Kidney Disease: Improving Global Outcomes (KDIGO) 2012
[2024-10-19] MEDS: DESENEX/MITRAZOL/ZEASORB 1 APPLIC TOPICAL ×2 (09:03→20:27)
[2024-10-19] MEDS: VITAMIN B-12 1000 MCG PO (09:04)
[2024-10-19] MEDS: VITAMIN D3 (cholecalciferol) 50 MCG PO (09:04)
[2024-10-19] MEDS: LASIX 60 MG PO ×2 (09:04→17:43)
[2024-10-19] MEDS: LOPRESSOR 100 MG PO ×2 (09:04→20:26)
[2024-10-19] MEDS: NEURONTIN 300 MG PO ×2 (09:04→20:26)
[2024-10-19] MEDS: IMDUR (EXTENDED RELEASE) 30 MG PO (09:04)
[2024-10-19] MEDS: FLUSH (NSS) 1 FLUSH IV (09:05)
[2024-10-19] MEDS: THERAGRAN 1 TABLET PO (09:05)
[2024-10-19] MEDS: LOW STRENGTH ASPIRIN 81 MG PO (09:05)
[2024-10-19 11:48] LABS: Glucose - Point of Care 174 mg/dl (70-99)
[2024-10-19] MEDS: FARXIGA 10 MG PO (12:55)
[2024-10-19] MEDS: APRESOLINE 50 MG PO (12:55)
[2024-10-19] MEDS: NOVOLOG FLEXPEN-LOW RESISTANCE 1 UNITS SC (13:03)
[2024-10-19] MEDS: BenGay-Like 1 APPLIC TOPICAL ×3 (13:04→21:55)
--- NOTE | 2024-10-19 13:30 | W.PN.CARDCBS ---
Today's Communication / Plan
-
transitioned to oral diuretics
started Farxiga
ok for d/c from CV standpoint
f/u arranged
Impression / Plan
-
PCP: Dr. Becka Lacy
Cardiology: Dr. Jaime
Impression:
Admitted with REESE and LE edema 10/16/24
Acute on chronic HFpEF
CAD s/p remote CABG
CKD 3a
HTN
HLD
DM 2
Neuropathy
Chronic back pain
Anemia
Remote former smoker
Chronic anemia
Obesity
Chronic leg neuropathy
Nuclear stress test 11/16/21: moderate sized predominantly fixed area of mildly decreased perfusion mid anterior wall, EF 66%
PET CT scan on 05/29/2024: showed normal myocardial perfusion imaging with no fixed or reversible defects, normal systolic function, EF greater than 70%.
Echo 12/31/2022: EF 55-60%, mild cLVH, no significant valvular disease
Echo 10/17/24: EF 55-60%, mild TR, PAP 35-40, no change c/w 12/2022
Plan:
-Patient came to [facility] from [facility] with falls, SOB and CP on 10/16/24. She is being diuresed for acute HF. Transitioned to oral diuretics Lasix 60 mg bid
-Weight down 9 lbs since admit,today 202 lbs 10/19/2024. Patient is below previous dry weight (she reports dry wt 210 lbs but unclear when this was from).
-Patient was taking Lasix 60 mg PO daily prior to admission (taking 20 mg in am, 40 mg in pm). Transitioned to 60 mg bid as above
-Creatinine improving, 1.7 on admission 08/18/2024, today 1.2
-Echo 10/17/2024 stable, EF 55-60%
-Outpatient dose of Lopressor 100 mg BID has been continued.
-Patient is not chronically on ADRIANE/ARB, but is on a regimen of Imdur ER 30 mg daily and hydralazine 25 mg BID which have been continued
-Will not add spironolactone due to CKD
-Farxiga 10 mg daily added today 10/19/2024. Appreciate CM research.
-Troponin peak 0.093, repeat 0.047 today, 10/18/2024. PET stress 05/2024 showed normal myocardial perfusion. Will manage as a nonischemic myocardial injury Troponin elevation in setting of acute HF and ELIZABETH
-Patient reports chest pressure has resolved
�Telemetry personally reviewed, normal sinus rhythm, heart rates 60s to 70s, PVCs
-cont ASA, statin, BB, Imdur for known h/o CAD
-f/u has been arranged, 11/09/2024 with SAIDA Connell at [facility]
HPI: Patient is an 84 YOF with PMH of CAD s/p remote CABG, HTN, HLD, type 2 diabetes, obesity, anemia, chronic kidney disease, COPD on home oxygen 2 L, chronic back pain who presents today due to increased dyspnea on exertion and weight gain for the
past few weeks. Sometimes she wakes up short of breath at night and puts her oxygen on with resolution of shortness of breath. Yesterday when she was walking to the bathroom she slipped on the hardwood floors and fell. She had to crawl across the
floor to get the call perez. She was assisted into her bed. She tells me this morning she woke up and had chest pressure. She felt nervous that she could not get out of bed and she thinks that exacerbated the chest pressure. She called 911 and
was brought to . Pro BNP 6970 and chest x-ray showed mild heart failure. She received Lasix 80 IV milligrams in ED with improvement in symptoms. Troponin 0.074. No chest pain. Cardiology consulted for evaluation. Patient lives independently
at [facility] but recently spent 10 days in their rehab facility. Patient sees Dr. Jaime for cardiovascular care. Had PET CT scan on 05/29/2024 showed normal myocardial perfusion imaging with no fixed or reversible defects, normal systolic
function, EF greater than 70%. She was also supposed to get echo but there was a problem with scheduling and it was not done.
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
Subjective
Date of Service: October 19, 2024
transitioned to oral diuretics
started Farxiga
SOB improved
d/c planned for 10/20/2024 back to [facility]
Objective
Labs:
10/19/24 05:41
10/19/24 05:41
Labs
Hgb 9.2 g/dL (12.0-16.0) L 10/19/24 05:41
Hct 29.3 % (37.0-47.0) L 10/19/24 05:41
Plt Count 258 10^3/uL (130-400) 10/19/24 05:41
Sodium 133 mmol/L (135-145) L 10/19/24 05:41
Potassium 4.3 mmol/L (3.5-5.1) 10/19/24 05:41
BUN 45 mg/dl (7-17) H 10/19/24 05:41
Creatinine 1.2 mg/dL (0.6-1.0) H 10/19/24 05:41
Glucose 109 mg/dl (70-99) H 10/19/24 05:41
Digoxin 0.4 ng/ml (0.8-2.0) L 10/19/24 05:41
Troponins
10/16/24 10/16/24 10/18/24
14:45 23:46 06:47
Troponin I 0.074 H* 0.093 H* 0.047 H*
Vital Signs and I&O:
Vital Signs
Temp Pulse Resp BP Pulse Ox
98.2 F 66 15 123/70 98
10/19/24 11:34 10/19/24 11:34 10/19/24 11:34 10/19/24 12:55 10/19/24 11:34
Vital Signs
Temp Pulse Resp BP Pulse Ox
98.2 F 66 15 123/70 98
10/19/24 11:34 10/19/24 11:34 10/19/24 11:34 10/19/24 12:55 10/19/24 11:34
Intake & Output
10/17/24 10/18/24 10/19/24 10/20/24
06:59 06:59 06:59 06:59
Intake Total 1920 / 1920 930 / 930
Output Total 800 / 800 3475 / 3475 400 / 400
Balance -800 / -800 -1555 / -1555 530 / 530
Physical Exam
Physical Exam
GEN: No distress, awake, Ox3
HEENT: supple, anicteric, mmm
LUNGS: CTA, no wheezes/rales
CV: Reg, S1/S2, 1/6 syst LSB, no murmur
ABD: soft, BS+, NT/ND
EXT: trace B/L LE edema
NEURO: Gross non-focal
SKIN: No rash
--- NOTE | 2024-10-19 13:31 | CM ---
Addendum entered by Amy Bundy 10/19/24 13:47:
Please fax clinical to [phone] and Patient will need home O2 prescription faxed to [facility] when home O2 assessment completed.
Original Note:
Patient will need home O2 assessment to change O2 prescription, physician updated. Patient may benefit from referral for home VN at [facility]. CM will continue to follow for discharge planning needs.
Plan; home with O2 at [facility].
[2024-10-19 17:10] LABS: Glucose - Point of Care 134 mg/dl (70-99)
[2024-10-19] MEDS: CRESTOR 10 MG PO (17:44)
[2024-10-19] MEDS: BENADRYL 25 MG PO (20:33)
[2024-10-19 21:16] LABS: Glucose - Point of Care 142 mg/dl (70-99)
[2024-10-20 03:15] VITALS: BP 154/52
[2024-10-20 06:00] VITALS: BMI 36.9
--- NOTE | 2024-10-20 07:07 | W.PN.HOSP.TC ---
Addendum entered and electronically signed by Neel Levy MD 10/22/24 04:47:
ELIZABETH on CKD3
-ELIZABETH resolved at time of discharge
Original Note:
Today's Communication/Plan
-
discharge
Assessment / Plan
Assessment / Plan
Physical Exam
General: No pallor, cyanosis, or jaundice.
HEENT: Throat clear. PERRLA Normocephalic atraumatic
NECK: Supple. No JVD Carotid Bruits
RESPIRATORY: clear to auscultation c/l, stable respiratory status Nasal cannula oxygen supplementation
CVS: S1, S2 normal. RRR. No murmur, rub or gallop.
ABDOMEN: Soft, non-tender. No distension. BS+/normal.
EXTREMITIES: No peripheral cyanosis or edema. ecchymosis right abbott
HELPDESK TECHNICIAN: AOx3 conversant coherent
Psych:calm
IMPRESSION:
84F [facility] Morbid Obesity CAD CABG HFpEF COPD on prn 2L at home HTN HLD NIDDM former smoker present with progressive REESE orthopnea weight gain for the past few weeks. Had a fall during physical therapy, noted hypoxic
requiring oxygen supplementation, severe exercise intolerance, prompting ED eval. VSS on 2L. BNP all time high 6970. CXR suggestive mild CHF. Patient was treated with IV lasix 80 mg with subsequent improvement in sob noted. Troponin elevated
0.074 denies chest pain. No significant EKG changes noted in comparison with prior EKG Mar 2024.
PLAN:
Acute on Chronic HFpEF
Acute Hypoxia 2/2 HF
-Tele
-Cardio eval appreciated IV Lasix transitioned to PO, Farxiga added.
-daily weight I/O
-ECHO appreciated EF 55-60% stage I diastolic dysfunction, no significant change compared to prior study 12/2022
-wean O2 supplementation as tolerated
-cont home metoprolol with holding parameters
Patient is in need of oxygen at 3 liters/minute via nasal cannula continuously due to pulse oximetry of 87% on room air at rest. Oxygen will help to improve hypoxemia. Patient is mobile within the home. DuoNeb therapy has been tried and is
ineffective in treating hypoxemia related symptoms. Oxygen is needed to improve symptoms.
Left toe bruising from fall
-Foot X-ray appreciated no fracture of dislocation
Left knee Pain arthritis recent knee injection prior to hospitalization
-bengay like cream QID
-cont PT/OT
hx CAD CABG
cont home ASA IMdur
Troponin elevation
-chest pain free, no acute changes EKG noted
-likely non-ischemic AK due to heart failure
-Troponin trended to peak 0.093 since trended down
COPD
-no wheezing noted
-not on scheduled inhalers at home
-cont home prn duoneb
-outpt follow up with Pulmonology recommended
HTN
cont lasix metoprolol hydralazine w/ holding parameters
HLD
cont statin fenofibrate
CKD3B
home bicarb discontinued, unnecessary at this time
hx NIDDM
Morbid Obesity
A1c 6.3 (prediabetes)
hold Metformin
Insulin sliding scale
GERD
cont PPI
PT/OT SNF rehab (patient prefers home health)
dvt ppx heparin
DNR as per patient
Medically stable for discharge home with home services and outpatient follow up recommendations
Total Time Preparing Discharge ___40____ minutes including examination of the patient, summary of the hospital stay, instructions for continuing care to all relevant caregivers; and preparation of discharge records, prescriptions, and referral
forms if necessary.
Anticipated Discharge: Today
Subjective/Interval History
-
Date of Service: October 20, 2024
no acute distress sitting up comfortably in bed. overall patient reports feeling well. Denies new acute issues. Eager to go home.
Objective Data
-
Labs:
Laboratory Results
10/20/24
06:30
WBC Pending
Hgb Pending
Hct Pending
Plt Count Pending
Sodium Pending
Potassium Pending
Chloride Pending
Carbon Dioxide Pending
BUN Pending
Creatinine Pending
Glucose Pending
Calcium Pending
Vital Signs:
Vital Signs
Temp Pulse Resp BP Pulse Ox
98.5 F 73 18 154/52 95
10/20/24 03:15 10/20/24 03:15 10/20/24 03:15 10/20/24 03:15 10/20/24 03:15
I&O
10/19/24 10/20/24 10/21/24
06:59 06:59 06:59
Intake Total 930 / 930 1200 / 1200
Output Total 400 / 400 1350 / 1350
Balance 530 / 530 -150 / -150
[2024-10-20 07:17] LABS: Hematocrit 30.1 % (37.0-47.0); Hemoglobin 9.4 g/dL (12.0-16.0); Mean Corp Hgb Conc. 31.2 g/dL (33.0-37.0); Mean Corpuscular Hgb 29.1 pg (27.0-31.0); Mean Corpuscular Volume 93.2 fL (81.0-99.0); Mean Platelet Volume 9.9 fL (7.4-10.4); Platelet Count 271 10^3/uL (130-400); Red Blood Cell Count 3.23 10^6/uL (4.20-5.40); Red Cell Dist. Width 14.6 % (11.5-14.5); White Blood Cell Count 6.8 10^3/uL (4.8-10.8)
[2024-10-20 07:25] VITALS: BP 161/59
[2024-10-20 07:33] LABS: Glucose - Point of Care 125 mg/dl (70-99)
[2024-10-20] MEDS: NOVOLOG FLEXPEN-LOW RESISTANCE SC (07:44)
[2024-10-20 07:57] LABS: Blood Urea Nitrogen 52 mg/dl (7-17); Calcium 9.6 mg/dl (8.4-10.2); Carbon Dioxide 32 mmol/L (22-30); Chloride 93 mmol/L (98-107); Estimated Creatinine Clearance 32 ml/min; Glucose 119 mg/dl (70-99); Phosphorus 3.9 mg/dl (2.5-4.5); Potassium 4.5 mmol/L (3.5-5.1); Sodium 131 mmol/L (135-145); eGFR 37.33
[2024-10-20] MEDS: FARXIGA 10 MG PO (08:55)
[2024-10-20] MEDS: LASIX 60 MG PO (08:55)
[2024-10-20] MEDS: HEPARIN 5000 UNITS SC (08:55)
[2024-10-20] MEDS: NEURONTIN 300 MG PO (08:55)
[2024-10-20] MEDS: IMDUR (EXTENDED RELEASE) 30 MG PO (08:55)
[2024-10-20] MEDS: PROTONIX 40 MG PO (08:55)
[2024-10-20] MEDS: THERAGRAN 1 TABLET PO (08:56)
[2024-10-20] MEDS: BenGay-Like 1 APPLIC TOPICAL ×2 (08:56→11:53)
[2024-10-20] MEDS: VITAMIN D3 (cholecalciferol) 50 MCG PO (08:56)
[2024-10-20] MEDS: LOW STRENGTH ASPIRIN 81 MG PO (08:56)
[2024-10-20] MEDS: VITAMIN B-12 1000 MCG PO (08:56)
[2024-10-20] MEDS: LOPRESSOR 100 MG PO (08:56)
[2024-10-20] MEDS: APRESOLINE PO (08:56)
[2024-10-20] MEDS: APRESOLINE 25 MG PO (09:00)
[2024-10-20] MEDS: DESENEX/MITRAZOL/ZEASORB 1 APPLIC TOPICAL (09:01)
--- NOTE | 2024-10-20 10:21 | CM ---
Addendum entered by Justina Murray RN 10/20/24 11:22:
CM sent updated script and clinical information for change in patient's oxygen needs.
Addendum entered by Justina Murray RN 10/20/24 11:19:
CM spoke with [facility] and confirmed that patient is current with them. Patient was advised that she needs to bring her oxygen for the transport home. She does understand that she needs Oxygen Continuously. She will have her friend bring her
oxygen to the hospital for transport.
CM will refer patient to [facility].
PLAN: [facility] and Home oxygen with [facility].
Original Note:
Patient would like to leave today to return back to [facility]. Patient has been known to [facility]. CM will update [facility] with discharge.
CM is awaiting home oxygen assessment for discharge. CM will update [facility] once home oxygen assessment is complete.
--- NOTE | 2024-10-20 10:41 | W.PN.UPDATE ---
Update Note
Progress Note Update
Patient is in need of oxygen at 3 liters/minute via nasal cannula continuously due to pulse oximetry of 87% on room air at rest. Oxygen will help to improve hypoxemia. Patient is mobile within the home. DuoNeb therapy has been tried and is
ineffective in treating hypoxemia related symptoms. Oxygen is needed to improve symptoms.
[2024-10-20 11:08] VITALS: BP 101/55
[2024-10-20 11:49] LABS: Glucose - Point of Care 213 mg/dl (70-99)
[2024-10-20] MEDS: NOVOLOG FLEXPEN-LOW RESISTANCE 2 UNITS SC (11:56)
--- NOTE | 2024-10-20 12:16 | W.DCSUMMARY ---
Discharge Summary
Discharge Data
Date of Admission: 10/16/24
Date of Discharge: 10/20/24
-
Pending Results: No
Discharge Plan
-
Patient Disposition: Home with Home Care
Discharge Diagnosis/Procedures: Acute on Chronic Heart Failure with Preserved Ejection
Acute on Chronic Respiratory Failure
COPD
Hypertension
Hyperlipidemia
Chronic Kidney Disease Stage 3B
History Diabetes
Obesity
GERD
Condition: Fair
Diet: Low Cholesterol, 2 Gram Sodium and Diabetic, Carb Controlled
Activity: With assistance, As tolerated and With Walker
Driving Restrictions: No driving
Bathing Restrictions: None
Blood Work: Repeat BMP with primary care provider in 1 week of discharge.
Others Tests: Follow up with Pulmonology for pulmonary function testing
Other Services: VN, PT and OT
Specialty Instructions: Weigh Daily- Call MD for wt gain/loss 3 lbs overnight/5 lbs in 1 week
Activity Restrictions/Additional Instructions:
Please follow up with primary care provider in 1 week of discharge, keep your appointment with Cardiology, and follow up with Pulmonology in 2-4 weeks of discharge.
Farxiga has been prescribed for Heart Failure.
For Heart Failure, your Lasix dose has been adjusted to 60 mg twice a day.
For diabetes and obesity, Metformin has been reduced to 500 mg twice a day due to your kidney function.
Home bicarb supplementation has been discontinued as it is no longer necessary at this time. No significant metabolic acidosis was noted during stay. Bicarb was consistently normal without need for supplementation.
Please take medications as prescribed/recommended and follow up with primary care provider and/or other healthcare provider involved in your care for refills and/or further adjustment to your medication regimen as necessary.
Instructions: *DCA Heart Failure Instructions
Referrals:
Sunny Mosquera MD [Active] - in two to four weeks
Becka Lacy MD [Family Provider] - in one week
Geeta Garza CRNP [Specified Professional Personl] - 11/09/24 1:40 pm (you have an appointment with Dr Jaime's nurse practitioner at the [facility]. )
Prescriptions:
New
dapagliflozin propanediol [Farxiga] 10 mg tablet
10 mg PO DAILY Qty: 30 11RF
Analgesic [place] (m.salic-menth) 15-10 % Cream
1 applic topical QID PRN (Reason: muscle pain) Qty: 85 0RF
miconazole nitrate [Miconazorb AF] 2 % Powder
1 applic topical BID 7 Days Qty: 85 0RF
Rx Instructions:
Apply to groin and abdomen folds
metformin 500 mg tablet
500 mg PO BID Qty: 60 0RF
furosemide 20 mg Tablet
60 mg PO BID AT 0800,1600 Qty: 180 0RF
Continued
metoprolol tartrate 100 mg Tablet
100 mg PO BID
isosorbide mononitrate 30 mg Tablet Extended Release 24 Hr
30 mg PO DAILY
therapeutic multivitamin Tablet
1 tab PO DAILY
oxycodone-acetaminophen 5-325 mg tablet
1 tab PO Q6HPRN PRN (Reason: severe pain)
fluticasone propionate 50 mcg/actuation [place],Suspension
1 spray INTRANASAL BIDPRN PRN (Reason: congestion)
cholecalciferol (vitamin D3) [Vitamin D3] 50 mcg (2,000 unit) Capsule
50 mcg PO DAILY
coenzyme Q10 150 mg Capsule
300 mg PO QPM Qty: 0
aspirin 81 mg Tablet,Chewable
81 mg PO DAILY
fenofibrate nanocrystallized 48 mg Tablet
48 mg PO DAILY
hydralazine 25 mg tablet
25 mg PO BID
gabapentin 300 mg capsule
300 mg PO QID
rosuvastatin 20 mg tablet
20 mg PO QPM
ipratropium-albuterol 0.5 mg-3 mg(2.5 mg base)/3 mL solution for nebulization
3 ml inhalation R TIDPRN PRN (Reason: sob/wheezing)
cyanocobalamin (vitamin B-12) 1,000 mcg Tablet
1,000 mcg PO DAILY
omeprazole 20 mg Tablet,Delayed Release (Dr/Ec)
20 mg PO DAILY
Discontinued
sodium bicarbonate 650 mg Tablet
650 mg PO BID
furosemide 40 mg tablet
80 mg PO QPM
metformin 1,000 mg tablet
1,000 mg PO BID
furosemide 40 mg tablet
40 mg PO DAILY
Discharge Orders:
Discharge Patient (As Directed); Ordered 10/20/24
Ordered By: Neel Levy
Discharge Date and Time
Print Language: AZERI
[2024-10-20 15:34] VITALS: BP 140/61
[2024-10-20] MEDS: PERCOCET 5/325 1 TABLET PO (15:46)
--- NOTE | 2024-10-22 10:45 | W.HF.CON ---
Heart Failure
- LV Function
Left ventricular function study result: LV Ejection fraction >/= 50%
Ejection Fraction Percentage: 60-65
- ARNI
Patient already on ARNI: No
Heart Failure ARNI Not Indicated: LV Ejection Fraction >/= 40%
- ACEI/ARB
Patient already on ACEI/ARB: No
Heart Failure ACEI/ARB Not Indicated: LV Ejection Fraction > 40%
- Beta Mio
Patient already on Evidence Based Beta Mio: No
Heart Failure Evidence Based Beta Mio Not Indicated: LV Ejection Fraction > 40%
- Mineralocorticord Receptor Antagonist
Patient already on MRA: No
Heart Failure MRA Not Indicated: LV Ejection Fraction > 40%
- SGLT-2 Inhibitor
Patient already on SGLT-2 Inhibitor: Yes
- Hydralazine & Isosorbide Dinitrate
Patient already on Hydralazine & Isosorbide Dinitrate: Yes
- NYHA CHF Classification
NYHA CHF Classification Level: Class III - Symptoms w/ min exertion, interferes w/ nml daily activity
- ACC/AHA Stage
ACC/AHA Stage: Stage C: Symptomatic Heart Failure
== END 2024-10-20 15:57 | disposition home health service (06) | DRG 291 ==
LOC: 4 EAST ACU 16:16
PROVIDERS: Physician Assistant Medical; ADMITTING PHYSICIAN Internal Medicine; CONSULT PHYSICIAN Internal Medicine Cardiovascular Disease; EMERGENCY PHYSICIAN Emergency Medicine; FAMILY PHYSICIAN Internal Medicine Geriatric Medicine
DX: I13.0 Hypertensive heart and chronic kidney disease with heart failure and stage 1 through stage 4 chronic kidney disease, or unspecified chronic kidney disease (principal); I50.33 Acute on chronic diastolic (congestive) heart failure; J96.21 Acute and chronic respiratory failure with hypoxia; N17.9 Acute kidney failure, unspecified; N18.32 Chronic kidney disease, stage 3b; J44.9 Chronic obstructive pulmonary disease, unspecified; Z68.39 Body mass index [BMI] 39.0-39.9, adult; K21.9 Gastro-esophageal reflux disease without esophagitis; E11.22 Type 2 diabetes mellitus with diabetic chronic kidney disease; E11.41 Type 2 diabetes mellitus with diabetic mononeuropathy; G57.90 Unspecified mononeuropathy of unspecified lower limb; Z79.899 Other long term (current) drug therapy; Z79.84 Long term (current) use of oral hypoglycemic drugs; E66.01 Morbid (severe) obesity due to excess calories; Z87.891 Personal history of nicotine dependence; I25.10 Atherosclerotic heart disease of native coronary artery without angina pectoris; Z95.1 Presence of aortocoronary bypass graft; E78.00 Pure hypercholesterolemia, unspecified; W01.0XXA Fall on same level from slipping, tripping and stumbling without subsequent striking against object, initial encounter; Z88.0 Allergy status to penicillin; Z88.1 Allergy status to other antibiotic agents; Z79.82 Long term (current) use of aspirin; E11.51 Type 2 diabetes mellitus with diabetic peripheral angiopathy without gangrene; M17.12 Unilateral primary osteoarthritis, left knee; D63.1 Anemia in chronic kidney disease; G89.29 Other chronic pain; Z99.81 Dependence on supplemental oxygen
CPT/HCPCS: 71046; 72170; 73560; 73620; 80048; 80053; 80162; 82962; 83036; 83735; 83880; 84100; 84443; 84484; 85025; 85027; 93005; 93306; 94640; 96374; 97163; 97166; 97530; 99285

== ENCOUNTER 2025-01-25 14:16 | Inpatient (IN) | payer OTHER, SELFPAY ==
[2025-01-25 11:37] VITALS: BP 145/61
[2025-01-25 11:43] VITALS: BMI 38.3
[2025-01-25 11:47] VITALS: BP 145/61
[2025-01-25 12:12] LABS: Hematocrit 27.7 % (37.0-47.0); Hemoglobin 8.7 g/dL (12.0-16.0); Mean Corp Hgb Conc. 31.4 g/dL (33.0-37.0); Mean Corpuscular Volume 88.5 fL (81.0-99.0); Nucleated Red Blood Cells % 0 %; Platelet Count 262 10^3/uL (130-400); Red Cell Dist. Width 14.7 % (11.5-14.5); Urine Character Clear (Clear)
[2025-01-25 12:39] LABS: Urine White Cell >100 /HPF (0-5)
[2025-01-25 12:44] LABS: ALT (SGPT) 13 U/L (0-35); AST (SGOT) 20 U/L (14-36); Albumin 4.3 g/dl (3.5-5.0); Alkaline Phosphatase 55 U/L (38-126); Blood Urea Nitrogen 53 mg/dl (7-17); Calcium 9.4 mg/dl (8.4-10.2); Carbon Dioxide 21 mmol/L (22-30); Chloride 96 mmol/L (98-107); Estimated Creatinine Clearance 25 ml/min; Glucose 139 mg/dl (70-99); Potassium 4.2 mmol/L (3.5-5.1); Sodium 128 mmol/L (135-145); Total Protein 6.9 g/dl (6.3-8.2); eGFR 27.44
--- NOTE | 2025-01-25 13:19 | ED.GENMED ---
History of Present Illness
General
Chief Complaint: Weakness
Source: patient
Exam Limitations: none
Time Seen by Provider: 01/25/25 12:48
Nursing documentation reviewed up to this point in time: agreed with
History of Present Illness
History of Present Illness:
85-year-old female presents with trouble urinating nausea vomiting here she had a bladder scan greater than 900 cc of urine Reed placed feeling better shortness of breath, uses oxygen as needed, no fevers, now feeling better after Reed was placed
Past History
Past History
ED Past Medical History: CAD, CHF, COPD, HTN, Hypercholesterolemia, NIDDM and Other (Back pain, Neuropathy, PVD)
ED Past Surgical History: Cardiac (Triple bypass, ) and Orthopedic (Back surgery, )
Social History
Tobacco: Former smoker
Alcohol: None
Drug: None
Personal:
Living: assisted living ([facility])
Employment: Retired
Review of Systems
Review of Systems
All Other Systems: Not applicable
Constitutional: Reports fatigue; Denies fever
Respiratory: Reports trouble breathing
ABD/GI: Reports abdominal pain and nausea
: Reports difficulty voiding
Neurological: Reports weakness
Phy Exam
Physical Exam
Physical Exam:
Physical Exam
General: Elderly female chronically ill-appearing, but nursing report was ill-appearing vomiting when she presented
Neck: Dry lips
Heart: s1/s2 regular rate and rhythm, no murmur. equal radial pulses.
Lungs: no acute respiratory distress. clear bilaterally
Abdomen: Soft obese not tender
Neuro: alert and oriented. no focal neurological deficits
Skin: no rash
Psychiatric: well kept. interactive and cooperative
Extremities: No edema
Course
Orders/Labs/Results
Orders:
Orders
01/25/25 11:53
Electrocardiogram (*1) Urgent
Reason for Study: Other
Other Reason for Exam: weakness
EKG- Treatment ONCE
01/25/25 12:02
Complete Blood Count/With Diff Urgent
Comprehensive Metabolic Panel Urgent
Urinalysis Urgent
Date Specimen was Collected: 01/25/25
Time Specimen was Collected: 11:53
Urine Microscopic Urgent
Date Specimen was Collected: 01/25/25
Time Specimen was Collected: 11:53
01/25/25 12:54
0.9% Sodium Chloride 1000 ml [Nss] 1,000 ml IV BOLUS
Ondansetron Injectable [Zofran] 4 mg IV NOW STA
01/25/25 13:17
LevoFLOXacin 250 MG/50 ML [Levaquin] 250 mg in 50 ml IV NOW
CR Chest - 2 Views Urgent
Comment:
Reason For Exam: vomiting
Abnormal Lab Results
01/25/25
12:02
RBC 3.13 L 10^6/uL
(4.20-5.40)
Hgb 8.7 L g/dL
(12.0-16.0)
Hct 27.7 L %
(37.0-47.0)
MCHC 31.4 L g/dL
(33.0-37.0)
RDW 14.7 H %
(11.5-14.5)
Absolute Neuts (auto) 7.5 H 10^3/uL
(1.4-6.5)
Absolute Monos (auto) 0.7 H 10^3/uL
(0.1-0.6)
Neutrophils % 75.7 H %
(42.2-75.2)
Lymphocytes % 15.5 L %
(20.5-51.1)
Sodium 128 L mmol/L
(135-145)
Chloride 96 L mmol/L
(98-107)
Carbon Dioxide 21 L mmol/L
(22-30)
BUN 53 H mg/dl
(7-17)
Creatinine 1.8 H mg/dL
(0.6-1.0)
Glucose 139 H mg/dl
(70-99)
Urine Occult Blood 1+ A
(Negative)
Urine Nitrite Positive A
(Negative)
Ur Leukocyte Esterase 3+ A
(Negative)
Urine RBC 3-6 A /HPF
(0-2)
Urine WBC >100 A /HPF
(0-5)
Urine Bacteria Many A
(Negative)
Urine Albumin 1+ A
(Neg - Trace)
01/25/25 12:02
01/25/25 12:02
Vital Signs
Initial and Last Documented VS:
Initial Vital Signs
Temp Pulse Resp BP Pulse Ox
98.0 F 74 18 145/61 97
01/25/25 11:37 01/25/25 11:37 01/25/25 11:37 01/25/25 11:37 01/25/25 11:37
Last Documented Vital Signs
Temp Pulse Resp BP Pulse Ox
98.0 F 80 17 145/61 98
01/25/25 11:37 01/25/25 11:47 01/25/25 11:47 01/25/25 11:47 01/25/25 13:20
MDM/Problems Addressed
Differential Diagnosis Includes:
Urinary retention UTI ELIZABETH electrolyte abnormality
MDM/Problems Addressed:
Vomiting
Chronic conditions affecting care:
Chronic lung disease diet
Acute Exacerbation and/or Progression of Chronic Illness:
Chronic lung disease
*Radiology
Radiology exam reviewed: preliminary read by ED provider
*Pulse Oximetry
SaO2: 98
Nasal Cannula flow liters per minute: 3
Oxygen Mode of Delivery: Simple mask
Patient hypoxic: no
*EKG
Interpreted by ED Provider?: Yes
Interpretation: abnormal
Comparison EKG: no comparison EKG present
Heart Rate: 78
Rate: normal
Rhythm: sinus
Ischemia: non-specific ST changes
*Facility Practice Specialist Interpretation
Rate: normal
Interpretation: normal
Heart Rate: 78
Rhythm: sinus
*Critical Care Note
Total Time (30-74mins, 75-104mins- exclusive of procedures): Not Applicable
Update Note
Update Note:
Update patient with urinary retention and a UTI, nausea vomiting, feeling better after Reed being placed allergies noted unclear if she can tolerate cephalosporins we will give quinolone started on saline hydration antiemetics chest x-ray low
threshold to admit
ED Attending Note
-
Portions of this chart may have been created with voice recognition software.� Occasional wrong word or��sound alike� substitutions may have occurred due to the inherent limitations of voice recognition software.
Discharge Plan
Departure
Patient Disposition: Admit
Date of Disposition: 01/25/25
Time of Disposition: 13:23
Admit to: Telemetry
Presentation/result/management discussed w/ accepting MD/DO: Hospitalist
Patient with high blood pressure during this ER visit?: No
Condition: Fair
Discharge Problem:
Hypertensive heart and chronic kidney disease with heart failure and stage 1 through stage 4 chronic kidney disease, or unspecified chronic kidney disease, Chronic kidney disease, stage 3a, Acute UTI, Urinary retention
Prescriptions:
No Action
metoprolol tartrate 100 mg Tablet
100 mg PO BID
isosorbide mononitrate 30 mg Tablet Extended Release 24 Hr
30 mg PO DAILY
therapeutic multivitamin Tablet
1 tab PO DAILY
oxycodone-acetaminophen 5-325 mg tablet
1 tab PO Q6HPRN PRN (Reason: severe pain)
fluticasone propionate 50 mcg/actuation [place],Suspension
1 spray INTRANASAL BIDPRN PRN (Reason: congestion)
cholecalciferol (vitamin D3) [Vitamin D3] 50 mcg (2,000 unit) Capsule
50 mcg PO DAILY
coenzyme Q10 150 mg Capsule
300 mg PO QPM Qty: 0
aspirin 81 mg Tablet,Chewable
81 mg PO DAILY
fenofibrate nanocrystallized 48 mg Tablet
48 mg PO DAILY
hydralazine 25 mg tablet
25 mg PO BID
gabapentin 300 mg capsule
300 mg PO QID
rosuvastatin 20 mg tablet
20 mg PO QPM
ipratropium-albuterol 0.5 mg-3 mg(2.5 mg base)/3 mL solution for nebulization
3 ml inhalation R TIDPRN PRN (Reason: sob/wheezing)
cyanocobalamin (vitamin B-12) 1,000 mcg Tablet
1,000 mcg PO DAILY
omeprazole 20 mg Tablet,Delayed Release (Dr/Ec)
20 mg PO DAILY
dapagliflozin propanediol [Farxiga] 10 mg tablet
10 mg PO DAILY Qty: 30 11RF
Analgesic [place] (m.salic-menth) 15-10 % Cream
1 applic topical QID PRN (Reason: muscle pain) Qty: 85 0RF
miconazole nitrate [Miconazorb AF] 2 % Powder
1 applic topical BID 7 Days Qty: 85 0RF
Rx Instructions:
Apply to groin and abdomen folds
metformin 500 mg tablet
500 mg PO BID Qty: 60 0RF
furosemide 20 mg Tablet
60 mg PO BID AT 0800,1600 Qty: 180 0RF
Referrals:
Becka Lacy MD [Family Provider, Internal Medicine]
Interventions
Interventions:
*Risk Screen - Suicide Last Done: 01/25/25 11:43
*Neglect/Abuse Screening Last Done: 01/25/25 11:43
Discharge Date and Time
Print Language: UPPER SORBIAN
[2025-01-25] MEDS: ZOFRAN 4 MG IV (13:21)
[2025-01-25] MEDS: NSS 1000 IV (13:22)
--- NOTE | 2025-01-25 13:40 | HPS.HSE ---
Family Physician
-
Family Physician: Becka Lacy
Chief Complaint
-
Vomiting and Urinary Retention
History of Present Illness
Patient is an 85 y/o female past medical history of CAD, CHF, CKD, and DM who presents with vomiting and urinary retention. Patient reports difficulty urinated for the past 4 days. She developed vomiting which prompted her to come to the emergency
department for evaluation. Bladder scan revealed 900cc and Reed catheter was placed in ED with improvement in symptoms. She denies fevers, sweats or chills.
Medical History
Past Medical History
Past Medical History: Reports Other
Additional Past Medical History:
Coronary Artery Disease s/p CABG
Chronic HFpEF
Essential Hypertension
Hyperlipidemia
Diabetes Mellitus, Type II
CKD Stage III
Chronic Pain Syndrome
Peripheral Neuropathy
Class II Obesity due to Excess Calories
Past Surgical History: Reports Other
Additional Past Surgical History:
CABG
Social History
Tobacco: Former Smoker
Living: Other (Independent Apartment at [facility])
Family History
Family History: Not pertinent
Allergies / Home Medications
Allergies reflects when Allergies were last updated in [employer].
Home Medications with original date entered in [employer]
Allergy/Medication List:
Allergies
Allergy/AdvReac Type Severity Reaction Status Date / Time
amoxicillin Allergy Anaphylaxis Verified 01/25/25 11:41
bee venom protein (honey bee) Allergy Anaphylaxis Verified 01/25/25 11:41
clindamycin Allergy Anaphylaxis Verified 01/25/25 11:41
Penicillins Allergy Anaphylaxis Verified 01/25/25 11:41
Home Medications
isosorbide mononitrate 30 mg tablet,extended release 24 hr 30 mg PO DAILY Heart Disease/Condition 12/30/22
metoprolol tartrate 100 mg tablet 100 mg PO BID Blood Pressure 12/30/22
therapeutic multivitamin 1 tab PO QPM Supplement 12/30/22
aspirin 81 mg chewable tablet 81 mg PO DAILY Blood Clot Prevention/Tx 07/24/23
cholecalciferol (vitamin D3) 50 mcg (2,000 unit) capsule (Vitamin D3) 50 mcg PO DAILY Supplement 07/24/23
fenofibrate nanocrystallized 48 mg tablet 48 mg PO DAILY High Cholesterol 07/24/23
fluticasone propionate 50 mcg/actuation nasal spray,suspension 1 spray intranasal BIDPRN PRN congestion 07/24/23
gabapentin 300 mg capsule 300 mg PO QID Pain 03/20/24
hydralazine 25 mg tablet 25 mg PO BID Blood Pressure 03/20/24
rosuvastatin 20 mg tablet 20 mg PO QPM High Cholesterol 03/20/24
Lactobac no.2-Bifidobac no.1-S. thermo 112.5 billion cell capsule (Visbiome) 1 cap PO QPM 01/25/25
acetaminophen 650 mg tablet,extended release 1,300 mg PO BIDPRN PRN mild pain 01/25/25
coenzyme Q10 100 mg capsule (CoQ-10) 300 mg PO QPM 01/25/25
cyanocobalamin (vitamin B-12) 1,000 mcg tablet,extended release 1,000 mcg PO DAILY 01/25/25
docusate sodium 100 mg capsule (Stool Softener) 200 mg PO DAILY PRN constipation 01/25/25
furosemide 20 mg tablet 40 mg PO BID 01/25/25
metformin 1,000 mg tablet 500 mg PO BID 01/25/25
nystatin 100,000 unit/gram topical powder 1 applic topical DIRECTED apply under belly folds 01/25/25
omeprazole 20 mg capsule,delayed release 20 mg PO DAILY 01/25/25
oxycodone-acetaminophen 5 mg-325 mg tablet 1 tab PO TID PRN severe pain 01/25/25
sodium bicarbonate 650 mg tablet 650 mg PO BID 01/25/25
Review of Systems
-
History Source: Patient
A 12 point ROS was completed and negative except as noted: Yes
Constitutional: Denies Fever or Chills
Respiratory: Denies Cough or Trouble Breathing
Cardiac: Denies Chest Pain or Palpitations
Abdomen/GI: Denies Abdominal Pain
: Denies Dysuria
Musculoskeletal: Reports Edema and Other (Right Arm Pain)
Physical Exam
Vital Signs
Vital Signs
Temp Pulse Resp BP Pulse Ox
98.0 F 80 17 145/61 98
01/25/25 11:37 01/25/25 11:47 01/25/25 11:47 01/25/25 11:47 01/25/25 13:20
Physical Exam
General: Comfortable and Conversant
HEENT: Anicteric, Moist mucous membranes and Oxygen (Nasal Cannula)
Respiratory: Clear and Non Labored Respirations
Cardiac: S1/S2 and Regular Rhythm; No Murmur
GI: Soft and Non Tender
Rectal: Deferred by Provider
Genito-urinary: Reed (Pale yellow urine)
Musculoskeletal: No Clubbing, No Cyanosis and Other (+2 pitting edema bilateral lower extremities)
Skin: Warm and Dry
Neuro: Awake, Alert, Oriented and Nonfocal/grossly intact
Psych: Calm
Laboratory Results
-
01/25/25 12:02
01/25/25 12:02
Laboratory Results
Total Bilirubin 0.3 mg/dl (0.2-1.3) 01/25/25 12:02
AST 20 U/L (14-36) 01/25/25 12:02
ALT 13 U/L (0-35) 01/25/25 12:02
Alkaline Phosphatase 55 U/L (38-126) 01/25/25 12:02
Data Reviewed
-
Lab Data: Labs Reviewed by me
Impression/Plan
-
Urinary Retention likely secondary to Urinary Tract Infection
-Reed catheter placed in ED - Plan for voiding trial prior to discharge
-Continue levofloxacin
-Await urine culture
Acute on Chronic Hyponatremia, suspect related to hypervolemia in setting of urinary retention
-Continue Lasix
-Continue Sodium Bicarb
-Continue Fluid Restriction
Right Arm Pain
-Patient denies falls
-Check shoulder and humerus x-ray
CKD Stage III
-Creatinine slightly elevated from baseline likely related to urinary retention
-Monitor creatinine closely
Chronic HFpEF
-Patient reports increased lower extremity edema, suspect fluid retention in setting of urinary retention
-Continue Lasix as prior to admission
-Monitor Daily Weights
Coronary Artery Disease s/p CABG
-Continue aspirin
-Continue isosorbide mononitrate
Essential Hypertension
-Continue metoprolol and hydralazine
Hyperlipidemia
-Continue fenofibrate
Diabetes Mellitus, Type II
-Hold metformin
-Monitor sugars and continue coverage insulin
Normocytic Anemia, suspect related to chronic disease
-Check iron studies, vitamin b12 and folic acid
Chronic Pain Syndrome
-Continue Percocet PRN as prior to admission
Peripheral Neuropathy
-Continue Gabapentin
Class II Obesity due to Excess Calories
-Affects all aspects of care
DVT proph: SC Heparin
Code STatus: DNR
[2025-01-25 14:02] VITALS: BP 65/46
--- NOTE | 2025-01-25 14:05 | W.PN.UPDATE ---
Update Note
Progress Note Update
This is an addendum to H&P written by Bernadine Aguilar on 01/25/2025. �Patient seen and examined independently with PA.
85-year-old female past medical history of CAD status post CABG, HFpEF, morbid obesity, COPD on 2 L intermittently, hypertension, diabetes, CKD, former smoker, presenting with difficulty urinating, nausea and vomiting. �No fevers or chills.
Constipated for few days.�
Labs show sodium 128.
Urinalysis shows greater than 100 WBC, positive nitrates, leukocyte esterase. �Bladder scan showed 900 cc of urine, Reed catheter placed.
Patient with urinary tract infection and slight worsening of chronic hyponatremia. Urinary retenion secondary to UTI/constipation. Slight ELIZABETH on CKD. �IV fluids were given. �Urine culture pending. �Ceftriaxone. Some pitting edema due to inability to
urinate, resume diuretic. Senna for Constipation. Hyponatremia from volume retention.�
[2025-01-25 14:43] LABS: Iron 65 ug/dl (37-170)
[2025-01-25 14:52] LABS: Total Iron Binding Capacity 527 ug/dl (265-497)
[2025-01-25 15:19] LABS: Ferritin 8.5 ng/ml (11.1-264.0)
[2025-01-25 15:50] LABS: Folate 14.6 ng/ml (2.76-20); Vitamin B12 947 pg/ml (239-931)
[2025-01-25 16:08] VITALS: BP 92/47; BMI 37.3
[2025-01-25 16:18] LABS: Glucose - Point of Care 129 mg/dl (70-99)
[2025-01-25] MEDS: NOVOLOG FLEXPEN-LOW RESISTANCE SC (17:34)
[2025-01-25 17:35] VITALS: BP 120/60
[2025-01-25] MEDS: VISBIOME 1 CAP PO (17:46)
[2025-01-25] MEDS: CRESTOR 20 MG PO (17:46)
[2025-01-25] MEDS: LASIX 40 MG PO (17:46)
[2025-01-25] MEDS: NEURONTIN 300 MG PO ×2 (17:47→21:00)
[2025-01-25] MEDS: HEPARIN 5000 UNITS SC ×2 (17:47→23:27)
[2025-01-25] MEDS: LEVAQUIN 50 IV (17:47)
--- NOTE | 2025-01-25 19:00 | PTCARENOTE ---
Pt. admitted before change of shift, AAO x 3, vs stable, call perez within reach, wagner catheter placed in E.D.
[2025-01-25] MEDS: PERCOCET 5/325 1 TABLET PO (19:18)
[2025-01-25] MEDS: SODIUM BICARBONATE 650 MG PO (20:58)
[2025-01-25] MEDS: SENOKOT-S 2 TABLET PO (20:58)
[2025-01-25] MEDS: DESENEX/MITRAZOL/ZEASORB 1 APPLIC TOPICAL (21:01)
[2025-01-25] MEDS: APRESOLINE 25 MG PO (21:04)
[2025-01-25] MEDS: LOPRESSOR 100 MG PO (21:05)
[2025-01-25 22:16] LABS: Glucose - Point of Care 126 mg/dl (70-99)
[2025-01-25 23:10] VITALS: BP 119/45
[2025-01-26] MEDS: PERCOCET 5/325 1 TABLET PO ×2 (01:22→08:39)
[2025-01-26 06:00] VITALS: BMI 37.8
[2025-01-26 07:08] VITALS: BP 121/43
[2025-01-26 07:19] LABS: Glucose - Point of Care 114 mg/dl (70-99)
[2025-01-26] MEDS: NOVOLOG FLEXPEN-LOW RESISTANCE SC (08:03)
[2025-01-26 08:39] LABS: Hematocrit 27.5 % (37.0-47.0); Hemoglobin 8.5 g/dL (12.0-16.0); Mean Corp Hgb Conc. 30.9 g/dL (33.0-37.0); Mean Corpuscular Volume 89.9 fL (81.0-99.0); Platelet Count 285 10^3/uL (130-400); Red Cell Dist. Width 14.7 % (11.5-14.5)
[2025-01-26] MEDS: TRICOR 48 MG PO (08:39)
[2025-01-26] MEDS: LASIX 40 MG PO (08:39)
[2025-01-26] MEDS: PROTONIX 40 MG PO ×2 (08:40→19:58)
[2025-01-26] MEDS: NEURONTIN 300 MG PO ×3 (08:40→22:44)
[2025-01-26] MEDS: APRESOLINE 25 MG PO ×2 (08:40→20:11)
[2025-01-26] MEDS: SODIUM BICARBONATE 650 MG PO (08:40)
[2025-01-26] MEDS: VITAMIN D3 (cholecalciferol) 50 MCG PO (08:40)
[2025-01-26] MEDS: SENOKOT-S 2 TABLET PO ×2 (08:40→19:59)
[2025-01-26] MEDS: LOPRESSOR 100 MG PO ×2 (08:40→20:11)
[2025-01-26] MEDS: IMDUR (EXTENDED RELEASE) 30 MG PO (08:40)
[2025-01-26] MEDS: LOW STRENGTH ASPIRIN 81 MG PO (08:40)
[2025-01-26] MEDS: DESENEX/MITRAZOL/ZEASORB 1 APPLIC TOPICAL ×2 (08:41→20:00)
[2025-01-26] MEDS: HEPARIN 5000 UNITS SC ×3 (08:42→23:57)
[2025-01-26 09:00] VITALS: BMI 37.0
[2025-01-26 09:06] LABS: Blood Urea Nitrogen 48 mg/dl (7-17); Calcium 9.5 mg/dl (8.4-10.2); Carbon Dioxide 25 mmol/L (22-30); Chloride 104 mmol/L (98-107); Estimated Creatinine Clearance 30 ml/min; Glucose 109 mg/dl (70-99); Potassium 4.5 mmol/L (3.5-5.1); Sodium 135 mmol/L (135-145); eGFR 34.15
--- NOTE | 2025-01-26 09:36 | W.PN.HOSP.TC ---
Today's Communication/Plan
-
IV lasix
pain control, scheduled Tylenol, percocet prn, IV dilaudid severe breakthrough pain
cont abx
follow urine culture
maintain wagner
bowel regimen
Assessment / Plan
Assessment / Plan
Physical Exam
General: No acute distress, appeared relatively comfortable
HEENT: Hard of Hearing, Anicteric, Moist mucous membranes and Nasal Cannula Supplementation 3L
Respiratory: Right basilar crackles
Cardiac: S1/S2 and Regular Rhythm; No Murmur
GI: Soft and Non Tender
Genito-urinary: Wagner in place, clear yellow urine
Musculoskeletal: No Clubbing, No Cyanosis, +1 pitting edema bilateral lower extremities
Skin: Warm and Dry
Neuro: AOx3 conversant Coherent
Psych: Calm
85F from [place] w/ hx CAD, CABG, HFpEF, CKDIII, and DM who presents with vomiting and urinary retention. Patient reported difficulty urinating for the past 4 days. She developed vomiting which prompted her to come to the emergency department for
evaluation. Bladder scan revealed 900cc and Wagner catheter was placed in ED with improvement in symptoms.
Urinary Retention possibly 2/2 UTI vs constipation with poor ambulatory function/sedentary
-Wagner catheter placed in ED - Plan for voiding trial prior to discharge
-Continue levofloxacin
-Follow urine culture
-bowel regimen
-Detrol started d/t patient reporting urinary urgency feelings of retention despite Wagner (bladder scan noted no significant retention) suspect d/t bladder spasms 2/2 UTI
Hyponatremia, suspect related to hypervolemia in setting of urinary retention
Mild Metabolic Acidosis
-Continue Lasix
-Continue Fluid Restriction
-resolved, bicarb supplementation completed, monitor off
Right Arm Pain suspect d/t Arthritis flare
-Patient denies falls
-shoulder and humerus x-ray appreciate no fracture or dislocation, moderate arthritis Right AC joint
-cont pain control, Tylenol 650 mg TID, prn percocet, lidocaine patch bengay cream
-PT/OT
ELIZABETH on CKD Stage III likely d/t obstruction as above
-Initial Cr 1.8 trending down
-Monitor
Acute on Chronic HFpEF
01/26 Chest Pain, worsening SOB improved with IV lasix, once IV dilaudid, and Tums
-Patient reported increased lower extremity edema, likely fluid retention d/t obstruction as above
-I/O daily weights
-BNP 4720 though les from prior value 6970 past hospitalization
-01/26 EKG noted no significant change from prior EKG 01/25 initial troponin neg, will cont to trend for now
-01/26 CXR noted possible progressive pulm edema
-PO lasix switched to IV lasix 40 mg BID
Chronic Respiratory Failure
-cont baseline oxygen supplementation 3L, wean as tolerated
GERD
Heartburn
-protonix increased to 40 mg BID
-Tums PRN
Coronary Artery Disease s/p CABG
-Continue aspirin
-Continue isosorbide mononitrate
Essential Hypertension
-Continue metoprolol and hydralazine
Hyperlipidemia
-Continue fenofibrate
Diabetes Mellitus, Type II
-Hold metformin
-Monitor sugars and continue coverage insulin
Normocytic Anemia
Iron Deficiency Anemia
-vitamin b12 and folic acid noted non-deficient
-IV Iron supplementation
Chronic Pain Syndrome
-Continue Percocet PRN as prior to admission
-IV Dilaudid severe breakthrough pain
Peripheral Neuropathy
-Continue Gabapentin
Class II Obesity due to Excess Calories
-Affects all aspects of care
DVT proph: SC Heparin
Code STatus: DNR
Anticipated Discharge: 24 - 48 hours
Subjective/Interval History
-
Date of Service: January 26, 2025
No acute distress sitting up comfortably in bed. Reports right shoulder pain remains significant limiting range of motion. Patient also later reported significant chest pain with associate increased SOB, improved with IV Lasix and Tums.
Objective Data
-
Labs:
Laboratory Results
01/26/25
08:14
WBC 6.0
Hgb 8.5 L
Hct 27.5 L
Plt Count 285
Sodium 135
Potassium 4.5
Chloride 104
Carbon Dioxide 25
BUN 48 H
Creatinine 1.5 H
Glucose 109 H
Calcium 9.5
Vital Signs:
Vital Signs
Temp Pulse Resp BP Pulse Ox
98.6 F 78 20 121/43 98
01/26/25 07:08 01/26/25 07:08 01/26/25 07:08 01/26/25 07:08 01/26/25 07:08
I&O
01/25/25 01/26/25 01/27/25
06:59 06:59 06:59
Intake Total 1110 / 1110
Output Total 4250 / 4250
Balance -3140 / -3140
[2025-01-26 10:38] LABS: Glycohemoglobin (HgbA1c) 6.5 % (4.0-5.6)
--- NOTE | 2025-01-26 11:41 | CM ---
Patient seen bedside, initial assessment completed. Patient is an 85 y/o female past medical history of CAD, CHF, CKD, and DM who presents with vomiting and urinary retention.
Patient resides in independent living at [facility]. Patient has a 1st floor apartment, no steps to enter. Patient is independent w/ ambulation w/ the use of a RW, has home O2 24/7 (3L) and portable. Patient stated supplier is [place] based,
unsure of the name. Patient has additional grab bar and shower chair in the bathroom. Patient stated she was at the [facility] around a year ago and [facility] in the past. Patient stated she has a friend that comes in 3 times a week that
assists her w/ cleaning and supervision for showering. Patient stated she still drives if she needs to complete shopping and will have her friend come along for additional support.
Address, points of contact and insurance verified
PCP: Becka Lacy
Pharmacy: [facility] at [facility]
Plan: Anticipate home, will watch for any needs
[2025-01-26 12:21] LABS: Glucose - Point of Care 164 mg/dl (70-99)
[2025-01-26] MEDS: BenGay-Like 1 APPLIC TOPICAL (12:51)
[2025-01-26] MEDS: LIDOCAINE 4% PATCH 1 PATCH TOPICAL (12:51)
[2025-01-26] MEDS: NOVOLOG FLEXPEN-LOW RESISTANCE 1 UNITS SC ×2 (12:51→16:40)
[2025-01-26] MEDS: DETROL 1 MG PO ×2 (12:51→19:58)
[2025-01-26 15:33] VITALS: BP 120/90
--- NOTE | 2025-01-26 16:00 | PTCARENOTE ---
Patient reports chest pain that travels front chest through her back. Patient also reports jaw discomfort. Dr. Levy notified. EKG completed. VSS. Troponin drawn. Dr. Levy on floor to see patient. Dilaudid administered for pain. O2 maintained.
[2025-01-26] MEDS: DILAUDID 0.25 MG IV (16:18)
[2025-01-26 16:21] LABS: Glucose - Point of Care 196 mg/dl (70-99)
[2025-01-26] MEDS: LEVAQUIN 50 IV (16:26)
[2025-01-26] MEDS: LASIX 40 MG IV (16:26)
[2025-01-26] MEDS: TUMS CHEWABLE TABLET 200 MG PO (16:39)
[2025-01-26] MEDS: LASIX PO (16:54)
[2025-01-26] MEDS: BenGay-Like TOPICAL ×2 (17:07→21:34)
[2025-01-26] MEDS: VISBIOME 1 CAP PO (17:08)
[2025-01-26] MEDS: CRESTOR 20 MG PO (17:08)
[2025-01-26 17:09] LABS: Troponin I 0.022 ng/ml
[2025-01-26] MEDS: REMOVE LIDOCAINE PATCH 1 PATCH REMOVE (19:59)
[2025-01-26 21:00] LABS: Glucose - Point of Care 156 mg/dl (70-99)
[2025-01-26] MEDS: TYLENOL 650 MG PO (22:48)
[2025-01-26 23:00] VITALS: BP 122/50
[2025-01-26 23:04] LABS: Troponin I 0.021 ng/ml
[2025-01-27] MEDS: PERCOCET 5/325 1 TABLET PO ×2 (05:58→08:42)
--- NOTE | 2025-01-27 06:27 | W.PN.HOSP.TC ---
Today's Communication/Plan
-
pain control
abx, follow urine cx
IV Lasix
Cardio eval
PT/OT
Assessment / Plan
Assessment / Plan
Physical Exam
General: No acute distress, appeared relatively comfortable
HEENT: Hard of Hearing, Anicteric, Moist mucous membranes and Nasal Cannula Supplementation 3L
Respiratory: Right basilar crackles
Cardiac: S1/S2 and Regular Rhythm; No Murmur
GI: Soft and Non Tender
Genito-urinary: Reed in place, clear yellow urine
Musculoskeletal: No Clubbing, No Cyanosis, +1 pitting edema bilateral lower extremities. Right shoulder pain limited range of motion d/t pain
Skin: Warm and Dry
Neuro: AOx3 conversant Coherent some short term memory issues noted, conversation in circular fashion
Psych: Relatively calm, some anxiousness noted in conversation pressured speech
85F from [facility] w/ hx CAD, CABG, HFpEF, CKDIII, and DM who presents with vomiting and urinary retention. Patient reported difficulty urinating for the past 4 days. She developed vomiting which prompted her to come to the emergency department for
evaluation. Bladder scan revealed 900cc and Reed catheter was placed in ED with improvement in symptoms.
Urinary Retention possibly 2/2 UTI vs constipation with poor ambulatory function/sedentary
-Reed catheter placed in ED - Plan for voiding trial prior to discharge
-Continue levofloxacin started 01/25
-Follow urine culture prelim gram neg bacilli
-bowel regimen
-Detrol started d/t patient reporting urinary urgency feelings of retention despite Reed (bladder scan noted no significant retention) suspect d/t bladder spasms 2/2 UTI
symptoms since resolved however possible subsequent cognitive impairment noted (conversations moving in circular fashion) patient also more anxious, pressure speech, Detrol since placed on hold
Hyponatremia, suspect related to hypervolemia in setting of urinary retention
Mild Metabolic Acidosis
-Continue Lasix
-Continue Fluid Restriction
-resolved, bicarb supplementation completed, monitor off
Chronic Pain Syndrome
Right Arm/shoulder Pain suspect d/t Arthritis flare
-Patient denies falls
-shoulder and humerus x-ray appreciate no fracture or dislocation, moderate arthritis Right AC joint
-CT RUE shoulder appreciated small joint effusion, no fracture or dislocation
-cont pain control, percocet switched to Oxycodone 5mg prn and scheduled Tylenol 650 mg Q4HWA, lidocaine patch
-PT/OT appreciated SNF rehab
ELIZABETH on CKD Stage III likely d/t obstruction as above
-Initial Cr 1.8 trending down
-Monitor
Acute on Chronic HFpEF
01/26 Chest Pain, worsening SOB improved with IV lasix, once IV dilaudid, and Tums
-Patient reported increased lower extremity edema, likely fluid retention d/t obstruction as above
-I/O daily weights
-BNP 4720 though les from prior value 6970 past hospitalization
-01/26 EKG noted no significant change from prior EKG 01/25 initial troponin neg, will cont to trend for now
-01/26 CXR noted possible progressive pulm edema
-PO lasix switched to IV lasix 40 mg BID
-Cardio Eval appreciated
01/27 Stroke Alert patient reported subjective feelings right sided weakness
Neuro Eval Appreciated NIH score O, Stroke Ruled out
CT head appreciated no acute abn's
Chronic Respiratory Failure
-cont baseline oxygen supplementation 3L, wean as tolerated
GERD
Heartburn
-protonix increased to 40 mg BID
-Tums PRN
Coronary Artery Disease s/p CABG
-Continue aspirin
-Continue isosorbide mononitrate
Essential Hypertension
-Continue metoprolol and hydralazine
Hyperlipidemia
-Continue fenofibrate
Diabetes Mellitus, Type II
-A1c 6.5
-Hold metformin
-sliding scale
-monitor and titrate insulin regimen as necessary.
Normocytic Anemia
Iron Deficiency Anemia
-vitamin b12 and folic acid noted non-deficient
-Iron supplementation
Peripheral Neuropathy
Sciatica
-Continue Gabapentin
Class II Obesity due to Excess Calories
-Affects all aspects of care
DVT proph: SC Heparin
Code STatus: DNR
PT/OT SNF rehab
Discussed with patient and patient's Brother Dominik
I spent a total of 45 minutes with the patient or on the floor. More than 50% of this time involved counseling and coordination of care.
Anticipated Discharge: 24 - 48 hours
Subjective/Interval History
-
Date of Service: January 27, 2025
RUE shoulder pain persists. Stroke Alert in morning d/t concern subjective right sided weakness- stroke ruled out.
Objective Data
-
Labs:
Laboratory Results
01/27/25
06:00
WBC Pending
Hgb Pending
Hct Pending
Plt Count Pending
Sodium Pending
Potassium Pending
Chloride Pending
Carbon Dioxide Pending
BUN Pending
Creatinine Pending
Glucose Pending
Calcium Pending
Vital Signs:
Vital Signs
Temp Pulse Resp BP Pulse Ox
97.9 F 66 16 122/50 99
01/26/25 23:00 01/26/25 23:00 01/26/25 23:00 01/26/25 23:00 01/26/25 23:00
I&O
01/25/25 01/26/25 01/27/25
06:59 06:59 06:59
Intake Total 1110 / 1110 1000 / 1000
Output Total 4250 / 4250 1575 / 1575
Balance -3140 / -3140 -575 / -575
[2025-01-27 06:56] LABS: Hematocrit 26.7 % (37.0-47.0); Hemoglobin 8.3 g/dL (12.0-16.0); Mean Corp Hgb Conc. 31.1 g/dL (33.0-37.0); Mean Corpuscular Volume 91.1 fL (81.0-99.0); Platelet Count 241 10^3/uL (130-400); Red Cell Dist. Width 14.7 % (11.5-14.5)
[2025-01-27 07:00] VITALS: BP 117/44
[2025-01-27 07:24] LABS: Glucose - Point of Care 134 mg/dl (70-99)
[2025-01-27 07:29] LABS: Blood Urea Nitrogen 52 mg/dl (7-17); Calcium 8.9 mg/dl (8.4-10.2); Carbon Dioxide 25 mmol/L (22-30); Chloride 101 mmol/L (98-107); Estimated Creatinine Clearance 28 ml/min; Glucose 124 mg/dl (70-99); Magnesium 2.4 mg/dl (1.6-2.3); Potassium 4.5 mmol/L (3.5-5.1); Sodium 134 mmol/L (135-145); eGFR 31.61
[2025-01-27 07:40] LABS: Troponin I 0.029 ng/ml
--- NOTE | 2025-01-27 08:00 | RR ---
Patient reports feeling feeling weak on R side. Patient states 'My whole R side (arm and leg) is weak. My R side just feels different, did I have a stroke?' Patient with limited ROM in R shoulder r/t pain. Dr. Levy notified. A Rapid Response was
called on this patient, please see Rapid Response form.
--- NOTE | 2025-01-27 08:14 | CON.NEURO ---
Neuro Assessment/Plan
Assessment
Sense of weakness involving the right side of the body, ongoing and without obvious motor loss.
Unlikely the patient is experiencing a stroke at this time. More likely that the patient is experiencing a somatization of weakness as same is not evident on examination today
Plan
Supportive care
Offer lidocaine patch to the right shoulder in hopes of greater ability to extend same
Physical therapy evaluation and treatment should be continued
Stroke educational materials to be provided
Provide iron by mouth at bedtime due to low iron storage levels
Consideration for reducing gabapentin dosing or increasing same if patient continues to have sensation changes
Will follow as needed.
Consultation
Order
Date of Consultation: 01/27/25
Requesting Provider: Hospitalist
Reason for Consult: Stroke alert
Subjective/Objective
Subjective Data
Date of Service: January 27, 2025
Stroke alert called for the patient having a perception of weakness in the right-side. Patient reports that her right shoulder is painful. No known modifying factors. She has no sense of inability to lift a limb. There are no associated symptoms.
Sense of weakness has been ongoing for greater than 24 hours according to the patient. Of note is that the patient was hospitalized due to urinary tract infection and emesis. Though symptoms were ongoing for 4 days prior to her admission on December
2024.
Objective Data
Vital Signs
Temp Pulse Resp BP Pulse Ox
36.6 C 66 16 122/50 99
01/26/25 23:00 01/26/25 23:00 01/26/25 23:00 01/26/25 23:00 01/26/25 23:00
Lab Results
01/27/25 06:49
01/27/25 06:49
Sodium 134 mmol/L (135-145) L 01/27/25 06:49
Potassium 4.5 mmol/L (3.5-5.1) 01/27/25 06:49
BUN 52 mg/dl (7-17) H 01/27/25 06:49
Glucose 124 mg/dl (70-99) H 01/27/25 06:49
Calcium 8.9 mg/dl (8.4-10.2) 01/27/25 06:49
Phosphorus 4.0 mg/dl (2.5-4.5) 01/27/25 06:49
Dhr-Z-Zugujusqvfm Pept 4720 pg/ml 01/26/25 08:14
Vitamin B12 947 pg/ml (239-931) H 01/25/25 12:02
Patient Allergies
amoxicillin Allergy (Verified 01/25/25 11:41)
Anaphylaxis
bee venom protein (honey bee) Allergy (Verified 01/25/25 11:41)
Anaphylaxis
clindamycin Allergy (Verified 01/25/25 11:41)
Anaphylaxis
Penicillins Allergy (Verified 01/25/25 11:41)
Anaphylaxis
CVA Assessment
Onset of Stroke Symptoms
Onset of symptoms known: No
Date of onset of symptoms: 01/26/25
Time pt last seen normal is known: No
Date last time pt seen normal: 01/26/25
NIH Stroke Score
Level of Consciousness: 0 - Alert
LOC Questions: 0-Answers both correctly
LOC Commands: 0-Performs both correctly
Best Horizontal Gaze: 0-Normal
Visual Ríos: 0=Normal, no visual loss
Facial Palsy: 0=Normal, symmetrical
Motor - Right Arm: UN=Amputation/jointfusion
Explanation of amputation/joint fusion: Patient unable to extend right upper extremity fully due to proximal pain
Motor - Left Arm: 0=No drift 10 seconds
Motor - Right Le-No drift 5 seconds
Motor - Left Le-No drift 5 seconds
Limb Ataxia: 0-Absent
Sensation: 0-Normal
Best Language: 0-No aphasia
Dysarthria: 0-Normal
Extinction and Inattention: 0-No abnormality
NIH Total Score:: 0
Tenecteplase Contraindications
Inclusion and Exclusion criteria reviewed: Yes
IAT Contraindications: NIHSS < 6
Review of Systems
-
History Source: Patient
All other systems: Reviewed and negative
EENT: Negative Blurry Vision or Swallowing Difficulty
Respiratory: Negative Trouble Breathing
Cardiac: Negative Chest Pain
Abdomen/GI: Negative Incontinence of Stool
Genitourinary: Negative Incontinence
Musculoskeletal: Negative Back Pain or Neck Pain
Neuro: Negative Dizzy or Headache
Physical Exam
-
General: No Apparent Distress and Appears Stated Age
Eyes: OU Absent Papilledema, Round OU, [place] Conjunctivae and No Ptosis
HEENT: Anicteric and Moist Mucous Membranes
Neck: Full Range of Motion
Respiratory: No Dyspnea
Cardiac: No JVD
GI: Non-distended
Skin: Unremarkable
Extremities: No Clubbing, No Cyanosis and No Edema
Psych: Negative Intact Judgement/Insight
Extended Neurological Exam
Mood & Affect: Anxious
Attention Span & Concentration: Awake, Alert, Interactive and No Difficulty with 2 Step Request
Memory: Unremarkable
Tremor: Hand Tremor Absent and Head Tremor Absent
Speech: Quality Unremarkable (Accented) and Quantity Unremarkable
Cranial Nerve II: Left Eye: Pupillary Reactivity Unremarkable, Pupillary Size Unremarkable and Visual Ríos Intact
Cranial Nerve II: Right Eye: Pupillary Reactivity Unremarkable, Pupillary Size Unremarkable and Visual Ríos Intact
Cranial Nerves III, IV, : Extraocular Movement: Extraocular Movement Full in all Directions
Cranial Nerve VII: Facial Symmetry: Normal Facial Symmetry
Cranial Nerve VIII: Hearing: Unremarkable Hearing to Normal Conversational Volume
Cranial Nerves IX, X: Palate Movement: Palate Elevation Symmetric
Cranial Nerve XI: Shoulder Shrug: Unremarkable
Cranial Nerve XII: Tongue Protusion: Midline
Muscle Strength, Overall: Full Throughout
Muscle Bulk & Tone: Bulk Unremarkable and Tone Unremarkable
Deep Tendon Reflexes: Absent Throughout
Touch Sensation: Unremarkable
Coordination: Cyknvm-azch-qpmbqf Testing Unremarkable
Babinski Sign: Absent Bilaterally
Data Reviewed
-
CT Head: Report Reviewed and Image Reviewed
Labs: Report Reviewed
Reviewed with: Physician, Nurse and Patient
Old Records: Summarized
Medications
-
Active Medications
Generic Name Dose Route Start Last Admin
Trade Name Freq PRN Reason Stop Dose Admin
Acetaminophen 650 mg 01/26/25 22:00 01/26/25 22:48
Acetaminophen 325 Mg Tablet PO 02/23/25 21:59 650 mg
TID PAL Administration
Aspirin 81 mg 01/26/25 08:00 01/26/25 08:40
Aspirin 81 Mg Chewable Tablet PO 02/23/25 07:59 81 mg
DAILY PAL Administration
Calcium Carbonate 200 mg 01/26/25 16:22
Calcium Antacid 200 Mg (Calcium Carbonate 500 Mg) Chew Tablet PO 02/23/25 16:21
Q6HPRN PRN
indigestion heartburn
Cholecalciferol 50 mcg 01/26/25 08:00 01/26/25 08:40
Cholecalciferol (Vitamin D3) 50 Mcg Tablet (2,000 Units) PO 02/23/25 07:59 50 mcg
DAILY PAL Administration
Dextrose 12.5 grams 01/25/25 15:50
Dextrose 50% (0.5 Grams/Ml) 50 Ml Syringe IV 02/22/25 15:49
[id number] PRN
hypoglycemia
Protocol
Fenofibrate 48 mg 01/26/25 08:00 01/26/25 08:39
Fenofibrate 48 Mg Tablet PO 02/23/25 07:59 48 mg
DAILY PAL Administration
Furosemide 40 mg 01/27/25 08:00
Furosemide 40 Mg (10 Mg/Ml) 4 Ml Vial IV 02/24/25 07:59
BID AT 0800,1600 PAL
Gabapentin 300 mg 01/25/25 17:00 01/26/25 22:44
Gabapentin 300 Mg Capsule PO 02/22/25 16:59 300 mg
TID PAL Administration
Heparin Sodium 5,000 units 01/25/25 16:00 01/26/25 23:57
Heparin 5,000 Units/Ml 1 Ml Vial SC 02/22/25 15:59 5,000 units
Q8 PAL Administration
Hydralazine HCl 25 mg 01/25/25 20:00 01/26/25 20:11
Hydralazine 25 Mg Tablet PO 02/22/25 19:59 25 mg
BID PAL Administration
Hydromorphone HCl 0.25 mg 01/26/25 18:35
Hydromorphone 0.25 Mg/0.5 Ml Syringe IV 02/09/25 18:34
Q6HPRN PRN
severe breakthrough pain
Levofloxacin/Dextrose 250 mg in 50 mls @ 50 mls/hr 01/25/25 16:00 01/26/25 16:26
Levaquin IV 50 mls
Q24H PAL Administration
Ferric Sodium Gluconate 110 mls @ 110 mls/hr 01/27/25 14:00
Complex 125 mg/ Sodium IV 01/31/25 14:59
Chloride DAILY@1400 PAL
Insulin Aspart 0 units 01/25/25 16:30 01/26/25 16:40
Insulin Aspart Low Resistance 300 Units/3 Ml Pen.Injctr SC 02/22/25 16:29 1 units
AC PAL Administration
Protocol
Isosorbide Mononitrate 30 mg 01/26/25 08:00 01/26/25 08:40
Isosorbide Mononitrate 30 Mg Extended Release Tablet PO 02/23/25 07:59 30 mg
DAILY PAL Administration
Lactobacillus/Bifidobacterium 1 cap 01/25/25 18:00 01/26/25 17:08
Lactobac/Bifidobac (Visbiome) PO 02/22/25 17:59 1 cap
QPM PAL Administration
Lidocaine 1 patch 01/26/25 10:30 01/26/25 12:51
Lidocaine 4% Topical Patch TOPICAL 02/23/25 10:29 1 patch
DAILY PAL Administration
Protocol
Menthol/Methyl Salicylate 0 applic 01/26/25 13:00 01/26/25 21:34
Bengay-Like Cream TOPICAL 02/23/25 12:59 Not Given
QID PAL
Metoprolol Tartrate 100 mg 01/25/25 20:00 01/26/25 20:11
Metoprolol 100 Mg Regular Release Tablet PO 02/22/25 19:59 100 mg
BID PAL Administration
Miconazole Nitrate 0 applic 01/25/25 21:00 01/26/25 20:00
Miconazole Powder Bottle TOPICAL 02/22/25 20:59 1 applic
BID PAL Administration
Oxycodone/Acetaminophen 1 tablet 01/25/25 15:50 01/27/25 05:58
Oxycodone 5 Mg/Apap 325 Mg (Percocet) PO 02/08/25 15:49 1 tablet
TIDPRN PRN Administration
severe pain
Pantoprazole Sodium 40 mg 01/26/25 20:00 01/26/25 19:58
Pantoprazole 40 Mg Delayed Release Tablet PO 02/23/25 19:59 40 mg
BID PAL Administration
Patch Removal 1 patch 01/26/25 20:00 01/26/25 19:59
Remove Lidocaine Patch REMOVE 02/23/25 19:59 1 patch
DAILY@2000 PAL Administration
Rosuvastatin Calcium 20 mg 01/25/25 18:00 01/26/25 17:08
Rosuvastatin (Crestor) 20 Mg Tablet PO 02/22/25 17:59 20 mg
QPM PAL Administration
Senna/Docusate Sodium 2 tablet 01/25/25 20:00 01/26/25 19:59
Docusate W/Senna ([place]-Colace) Tablet PO 02/22/25 19:59 2 tablet
BID PAL Administration
Sodium Chloride 0 flush 01/25/25 17:00
Sodium Chloride 0.9% (Flush) Syringe IV 02/22/25 16:59
PER PROTOCOL PAL
Tolterodine Tartrate 1 mg 01/26/25 11:00 01/26/25 19:58
Tolterodine Tartrate 1 Mg Tablet PO 02/23/25 10:59 1 mg
BID PAL Administration
Home Medications
�Medication �Instructions �Recorded
isosorbide mononitrate 30 mg 30 mg PO DAILY Heart 12/30/22
tablet,extended release 24 hr Disease/Condition
metoprolol tartrate 100 mg tablet 100 mg PO BID Blood Pressure 12/30/22
therapeutic multivitamin 1 tab PO QPM Supplement 12/30/22
aspirin 81 mg chewable tablet 81 mg PO DAILY Blood Clot 07/24/23
Prevention/Tx
cholecalciferol (vitamin D3) 50 50 mcg PO DAILY Supplement 07/24/23
mcg (2,000 unit) capsule (Vitamin
D3)
fenofibrate nanocrystallized 48 mg 48 mg PO DAILY High Cholesterol 07/24/23
tablet
fluticasone propionate 50 1 spray intranasal BIDPRN PRN 07/24/23
mcg/actuation nasal congestion
spray,suspension
gabapentin 300 mg capsule 300 mg PO QID Pain 03/20/24
hydralazine 25 mg tablet 25 mg PO BID Blood Pressure 03/20/24
rosuvastatin 20 mg tablet 20 mg PO QPM High Cholesterol 03/20/24
Lactobac no.2-Bifidobac no.1-S. 1 cap PO QPM 01/25/25
thermo 112.5 billion cell capsule
(Visbiome)
acetaminophen 650 mg 1,300 mg PO BIDPRN PRN mild pain 01/25/25
tablet,extended release
coenzyme Q10 100 mg capsule 300 mg PO QPM 01/25/25
(CoQ-10)
cyanocobalamin (vitamin B-12) 1,000 mcg PO DAILY 01/25/25
1,000 mcg tablet,extended release
docusate sodium 100 mg capsule 200 mg PO DAILY PRN constipation 01/25/25
(Stool Softener)
furosemide 20 mg tablet 40 mg PO BID 01/25/25
metformin 1,000 mg tablet 500 mg PO BID 01/25/25
nystatin 100,000 unit/gram topical 1 applic topical DIRECTED apply 01/25/25
powder under belly folds
omeprazole 20 mg capsule,delayed 20 mg PO DAILY 01/25/25
release
oxycodone-acetaminophen 5 mg-325 1 tab PO TID PRN severe pain 01/25/25
mg tablet
[2025-01-27] MEDS: APRESOLINE PO (08:30)
[2025-01-27] MEDS: NOVOLOG FLEXPEN-LOW RESISTANCE SC ×2 (08:31→16:57)
--- NOTE | 2025-01-27 08:39 | RR ---
A Rapid Response was called on this patient, please see Rapid Response form.
Critical care team called bedside by primary RN due to pt. having a perception of stroke like symptoms and right shoulder pain with reported right leg weakness. NIH 0 upon CC team assessment, no drift in right leg/ full sensation present. Of note,
pt. has reported right shoulder pain prior to admission at baseline due to osteoarthritis, has difficulty raising arm however was able to raise right arm within baseline tolerance. Neurology bedside, CT head completed. Pt. returned to room, Primary
RN updated.
[2025-01-27] MEDS: PROTONIX 40 MG PO ×2 (08:40→20:26)
[2025-01-27] MEDS: NEURONTIN 300 MG PO ×3 (08:40→21:35)
[2025-01-27] MEDS: DETROL 1 MG PO ×2 (08:40→20:25)
[2025-01-27] MEDS: SENOKOT-S 2 TABLET PO ×2 (08:40→20:27)
[2025-01-27] MEDS: IMDUR (EXTENDED RELEASE) 30 MG PO (08:40)
[2025-01-27] MEDS: LOW STRENGTH ASPIRIN 81 MG PO (08:42)
[2025-01-27] MEDS: VITAMIN D3 (cholecalciferol) 50 MCG PO (08:42)
[2025-01-27] MEDS: TRICOR 48 MG PO (08:42)
[2025-01-27] MEDS: LASIX 40 MG IV ×2 (08:43→16:11)
[2025-01-27] MEDS: HEPARIN 5000 UNITS SC ×3 (08:43→23:12)
[2025-01-27] MEDS: DESENEX/MITRAZOL/ZEASORB 1 APPLIC TOPICAL ×2 (08:43→20:25)
[2025-01-27] MEDS: LOPRESSOR 100 MG PO ×2 (08:43→20:26)
[2025-01-27] MEDS: LIDOCAINE 4% PATCH TOPICAL (09:23)
[2025-01-27] MEDS: TYLENOL PO (09:23)
[2025-01-27] MEDS: BenGay-Like TOPICAL ×2 (09:23→12:11)
[2025-01-27 11:25] LABS: Glucose - Point of Care 179 mg/dl (70-99)
[2025-01-27] MEDS: ROXICODONE 5 MG PO ×2 (12:49→21:34)
[2025-01-27 12:50] VITALS: BP 109/42; PULSE 72; O2SAT 95
[2025-01-27] MEDS: NOVOLOG FLEXPEN-LOW RESISTANCE 1 UNITS SC (12:50)
[2025-01-27 12:59] VITALS: BMI 36.7
[2025-01-27 15:00] VITALS: BP 116/45
--- NOTE | 2025-01-27 15:34 | CON.CAR ---
Consultation
Consultation Request
Date/Time Consultation Requested: 01/27/25
Date/Time Consultation Performed: 01/27/25
Requesting Provider: Cam
Performing Provider: Julieta
Reason for Consultation: CHF
Medical History
-
Chief Complaint: urinary retention
History of Present Illness:
85-year-old woman past medical history of heart failure ejection fraction who presented on 01/25 with nausea, vomiting and urinary retention diagnosed with UTI for which she is being treated with antibiotics. Wagner catheter was also placed for
treatment of urinary retention and patient tells me she feels much better with catheter in place. Patient subsequently reported weakness in the right upper extremity for which neurology was consulted and evaluated for stroke however they felt her
exam was not consistent with acute CVA.
Cardiology is now consulted for CHF. Patient feels that she had slowly worsening edema over the past week prior to her admission. Has been receiving IV Lasix here. proBNP on admission was noted to be greater than 4000 and chest x-ray was
consistent with pulmonary edema. Patient does seem to be around her dry weight of 200 pounds currently. Also seems to be near her baseline O2 requirement
PMHx:
HFpEF
CAD s/p remote CABG
CKD 3a
HTN
HLD
DM 2
Neuropathy
Chronic back pain
Anemia
Remote former smoker
Chronic anemia
Obesity
Chronic leg neuropathy
Past Medical History
Past Medical History: Other (as above)
Past Surgical History: Other (as above)
Social History
Tobacco: Former Smoker
Living: Alone
Family History
Family History: Reviewed & Not Pertinent
Allergies / Home Medications
Allergy/AdvReac Type Severity Reaction Status Date / Time
amoxicillin Allergy Anaphylaxis Verified 01/25/25 11:41
bee venom protein (honey bee) Allergy Anaphylaxis Verified 01/25/25 11:41
clindamycin Allergy Anaphylaxis Verified 01/25/25 11:41
Penicillins Allergy Anaphylaxis Verified 01/25/25 11:41
�Medication �Instructions �Recorded �Confirmed �Type
isosorbide mononitrate 30 mg 30 mg PO DAILY Heart 12/30/22 01/25/25 History
tablet,extended release 24 hr Disease/Condition
metoprolol tartrate 100 mg tablet 100 mg PO BID Blood Pressure 12/30/22 01/25/25 History
therapeutic multivitamin 1 tab PO QPM Supplement 12/30/22 01/25/25 History
aspirin 81 mg chewable tablet 81 mg PO DAILY Blood Clot 07/24/23 01/25/25 History
Prevention/Tx
cholecalciferol (vitamin D3) 50 50 mcg PO DAILY Supplement 07/24/23 01/25/25 History
mcg (2,000 unit) capsule (Vitamin
D3)
fenofibrate nanocrystallized 48 mg 48 mg PO DAILY High Cholesterol 07/24/23 01/25/25 History
tablet
fluticasone propionate 50 1 spray intranasal BIDPRN PRN 07/24/23 01/25/25 History
mcg/actuation nasal congestion
spray,suspension
gabapentin 300 mg capsule 300 mg PO QID Pain 03/20/24 01/25/25 History
hydralazine 25 mg tablet 25 mg PO BID Blood Pressure 03/20/24 01/25/25 History
rosuvastatin 20 mg tablet 20 mg PO QPM High Cholesterol 03/20/24 01/25/25 History
Lactobac no.2-Bifidobac no.1-S. 1 cap PO QPM 01/25/25 01/25/25 History
thermo 112.5 billion cell capsule
(Visbiome)
acetaminophen 650 mg 1,300 mg PO BIDPRN PRN mild pain 01/25/25 01/25/25 History
tablet,extended release
coenzyme Q10 100 mg capsule 300 mg PO QPM 01/25/25 01/25/25 History
(CoQ-10)
cyanocobalamin (vitamin B-12) 1,000 mcg PO DAILY 01/25/25 01/25/25 History
1,000 mcg tablet,extended release
docusate sodium 100 mg capsule 200 mg PO DAILY PRN constipation 01/25/25 01/25/25 History
(Stool Softener)
furosemide 20 mg tablet 40 mg PO BID 01/25/25 01/25/25 History
metformin 1,000 mg tablet 500 mg PO BID 01/25/25 01/25/25 History
nystatin 100,000 unit/gram topical 1 applic topical DIRECTED apply 01/25/25 01/25/25 History
powder under belly folds
omeprazole 20 mg capsule,delayed 20 mg PO DAILY 01/25/25 01/25/25 History
release
oxycodone-acetaminophen 5 mg-325 1 tab PO TID PRN severe pain 01/25/25 01/25/25 History
mg tablet
Review of Systems
-
History Source: Patient
All other systems: Negative unless noted
Physical Exam
Vital Signs
Temp Pulse Resp BP Pulse Ox
98.0 F 81 16 117/44 100
01/27/25 07:00 01/27/25 07:00 01/27/25 07:00 01/27/25 07:00 01/27/25 07:00
Lab Results
01/27/25 06:49
01/27/25 06:49
Troponin I 0.029 ng/ml 01/27/25 06:49
Mos-Q-Gnryebaoinx Pept 4720 pg/ml 01/26/25 08:14
Physical Exam
General: Well Developed
HEENT: Normocephalic
Respiratory: Clear and Non Labored Respirations (on 4L NC)
Cardiac: S1/S2 and Regular Rhythm
Breast: Deferred by me
GI: Soft
Genito-urinary: Clear Urine (wagner in place)
Musculoskeletal: Edema (trace, non pitting)
Skin: Warm and Dry
Neuro: Awake and Alert
Psych: Calm
Impression / Plan
-
PCP: Dr. Becka Lacy
Cardiology: Dr. Jaime
Impression:
Urinary retention
UTI
Acute on Chronic HFpEF
CAD s/p remote CABG
CKD 3a
HTN
HLD
DM 2
Neuropathy
Chronic back pain
Anemia
Remote former smoker
Chronic anemia
Obesity
Chronic leg neuropathy
Nuclear stress test 11/16/21: moderate sized predominantly fixed area of mildly decreased perfusion mid anterior wall, EF 66%
PET CT scan on 05/29/2024: showed normal myocardial perfusion imaging with no fixed or reversible defects, normal systolic function, EF greater than 70%.
Echo 12/31/2022: EF 55-60%, mild cLVH, no significant valvular disease
Echo 10/17/24: EF 55-60%, mild TR, PAP 35-40, no change c/w 12/2022
Plan:
-Patient came to [facility] from [facility] with urinary retention and is being treated for UTI
-proBNP on admission was noted to be greater than 4000 and chest x-ray was consistent with pulmonary edema
-Seem to be around her dry weight, today was 200lbs by standing scale
-Also seems to be near her baseline O2 requirement
-Recommend continuing IV Lasix today
-Suspect we can transition to p.o. Lasix in the next 24 to 48 hours
-Recent echo with normal LV function and no high-grade valve disease, no need to repeat here
-Will not add spironolactone due to CKD
-Avoid SGLT2 with UTI
Data Reviewed
-
EKG: Tracing Personally Visualized and interpreted
Radiology: Image Personally Visualized and interpreted
Medical Tests (Nuc Med, Echo etc): Report Reviewed by me
Labs: Labs Reviewed by me
Old Records: Reviewed
[2025-01-27] MEDS: TYLENOL 650 MG PO ×3 (16:11→23:12)
[2025-01-27 16:57] LABS: Glucose - Point of Care 136 mg/dl (70-99)
[2025-01-27] MEDS: CRESTOR 20 MG PO (17:05)
[2025-01-27] MEDS: VISBIOME 1 CAP PO (17:05)
[2025-01-27] MEDS: LEVAQUIN 50 IV (17:05)
[2025-01-27] MEDS: APRESOLINE 25 MG PO (20:25)
[2025-01-27] MEDS: REMOVE LIDOCAINE PATCH REMOVE (20:28)
[2025-01-27] MEDS: FEOSOL 325 MG PO (21:35)
[2025-01-27 22:17] LABS: Glucose - Point of Care 149 mg/dl (70-99)
[2025-01-27 23:12] VITALS: BP 135/44
[2025-01-28] MEDS: TYLENOL PO (03:03)
[2025-01-28 06:00] VITALS: BMI 36.7
[2025-01-28 06:47] LABS: Hematocrit 27.6 % (37.0-47.0); Hemoglobin 8.4 g/dL (12.0-16.0); Mean Corp Hgb Conc. 30.4 g/dL (33.0-37.0); Mean Corpuscular Volume 90.8 fL (81.0-99.0); Platelet Count 265 10^3/uL (130-400); Red Cell Dist. Width 14.7 % (11.5-14.5)
[2025-01-28 07:14] LABS: Glucose - Point of Care 115 mg/dl (70-99)
[2025-01-28] MEDS: NOVOLOG FLEXPEN-LOW RESISTANCE SC (07:16)
[2025-01-28 07:17] LABS: Blood Urea Nitrogen 49 mg/dl (7-17); Calcium 9.6 mg/dl (8.4-10.2); Carbon Dioxide 27 mmol/L (22-30); Chloride 100 mmol/L (98-107); Estimated Creatinine Clearance 34 ml/min; Glucose 108 mg/dl (70-99); Magnesium 2.3 mg/dl (1.6-2.3); Potassium 4.6 mmol/L (3.5-5.1); Sodium 134 mmol/L (135-145); eGFR 40.55
[2025-01-28 07:43] VITALS: BP 141/58
[2025-01-28] MEDS: SENOKOT-S 2 TABLET PO (07:51)
[2025-01-28] MEDS: VITAMIN D3 (cholecalciferol) 50 MCG PO (07:52)
[2025-01-28] MEDS: LOPRESSOR 100 MG PO ×2 (07:52→20:14)
[2025-01-28] MEDS: PROTONIX 40 MG PO ×2 (07:52→20:14)
[2025-01-28] MEDS: TYLENOL 650 MG PO ×4 (07:52→20:14)
[2025-01-28] MEDS: APRESOLINE 25 MG PO ×2 (07:52→20:14)
[2025-01-28] MEDS: IMDUR (EXTENDED RELEASE) 30 MG PO (07:52)
[2025-01-28] MEDS: TRICOR 48 MG PO (07:52)
[2025-01-28] MEDS: NEURONTIN 300 MG PO ×3 (07:52→20:14)
[2025-01-28] MEDS: LOW STRENGTH ASPIRIN 81 MG PO (07:53)
[2025-01-28] MEDS: LASIX 40 MG IV ×2 (07:53→15:28)
[2025-01-28] MEDS: HEPARIN 5000 UNITS SC ×3 (07:53→22:14)
[2025-01-28] MEDS: DESENEX/MITRAZOL/ZEASORB 1 APPLIC TOPICAL ×2 (07:54→20:15)
[2025-01-28] MEDS: LIDOCAINE 4% PATCH 2 PATCH TOPICAL (07:54)
--- NOTE | 2025-01-28 08:47 | W.PN.HOSP.TC ---
Today's Communication/Plan
-
see bold
Assessment / Plan
Assessment / Plan
85F from [facility] w/ hx CAD, CABG, HFpEF, CKDIII, and DM who presents with vomiting and urinary retention. Patient reported difficulty urinating for the past 4 days. She developed vomiting which prompted her to come to the emergency department for
evaluation. Bladder scan revealed 900cc and Reed catheter was placed in ED with improvement in symptoms.
Chronic Pain Syndrome
Right Arm/shoulder Pain suspect d/t Arthritis flare
Cervical radiculopathy
-Patient denies falls
-Shoulder and humerus x-ray appreciate no fracture or dislocation, moderate arthritis Right AC joint
-CT RUE shoulder appreciated small joint effusion, no fracture or dislocation
-Appreciate orthopedic surgery input, patient likely has cervical radiculopathy
-Start prednisone day 1 out of 7, continue oxycodone as needed, continue scheduled Tylenol, lidocaine patch
-Can follow up w/ her pain mgt doctor, Dr. Quiroga in office
-PT/OT appreciated SNF rehab
Acute on Chronic HFpEF
01/26 Chest Pain, worsening SOB improved with IV lasix, once IV dilaudid, and Tums
-Patient reported increased lower extremity edema, likely fluid retention d/t obstruction as above
-I/O daily weights
-BNP 4720 though les from prior value 6970 past hospitalization
-01/26 EKG noted no significant change from prior EKG 01/25 initial troponin neg, will cont to trend for now
-01/26 CXR noted possible progressive pulm edema
-Appreciate cardiology input, or Lasix switched to Lasix 40 mg IV twice daily
-Trend creatinine, trend daily weight
Urinary Retention possibly 2/2 UTI vs constipation with poor ambulatory function/sedentary
-Reed catheter placed in ED 01/25, removed 01/28 for void trial
-Urine cultures growing pansensitive E. coli, change IV levofloxacin that was started on 01/25 to oral levofloxacin D4/5
-Bowel regimen
-Detrol started d/t patient reporting urinary urgency feelings of retention despite Reed (bladder scan noted no significant retention) suspect d/t bladder spasms 2/2 UTI
symptoms since resolved however possible subsequent cognitive impairment noted (conversations moving in circular fashion) patient also more anxious, pressure speech, Detrol since placed on hold
Diabetes Mellitus, Type II
-A1c 6.5
-Anticipate hyperglycemia secondary to prednisone
-Start Lantus 5 units at bedtime, change from sensitive sliding scale insulin to moderate sliding scale insulin
ELIZABETH on CKD Stage III likely d/t obstruction as above
-Initial Cr 1.8 trending down
-Monitor with dieresis
01/27 Stroke Alert patient reported subjective feelings right sided weakness
Neuro Eval Appreciated NIH score O, Stroke Ruled out
CT head appreciated no acute abn's
Hyponatremia, suspect related to hypervolemia in setting of urinary retention
Mild Metabolic Acidosis
-Continue Lasix
-Continue Fluid Restriction
-Resolved, bicarb supplementation completed, monitor off
Chronic Respiratory Failure
-cont baseline oxygen supplementation 3L, wean as tolerated
GERD
Heartburn
-protonix increased to 40 mg BID
-Tums PRN
Coronary Artery Disease s/p CABG
-Continue aspirin
-Continue isosorbide mononitrate
Essential Hypertension
-Continue metoprolol and hydralazine
Hyperlipidemia
-Continue fenofibrate
Normocytic Anemia
Iron Deficiency Anemia
-vitamin b12 and folic acid noted non-deficient
-Iron supplementation
Peripheral Neuropathy
Sciatica
-Continue Gabapentin
Class II Obesity due to Excess Calories
-Affects all aspects of care
DVT proph: SC Heparin
Code STatus: DNR
PT/OT SNF rehab
Total time spent to see the patient on the floor, examine the patient, review data and lab results, discuss treatment plan with patient, nursing staff around 53 minutes.
Physical Exam
General: No acute distress, obese
HEENT: Hard of Hearing, Anicteric, Moist mucous membranes and Nasal Cannula Supplementation 3L
Respiratory: Right basilar crackles
Cardiac: S1/S2 and Regular Rhythm; No Murmur
GI: Soft and Non Tender
Genito-urinary: Reed in place, clear yellow urine
Musculoskeletal: No Clubbing, No Cyanosis, +1 pitting edema bilateral lower extremities. Right shoulder pain limited range of motion d/t pain
Skin: Warm and Dry
Neuro: AOx3 conversant Coherent some short term memory issues noted, conversation in circular fashion
Psych: Relatively calm, some anxiousness noted in conversation pressured speech
Anticipated Discharge: > 48 hours
Subjective/Interval History
-
Date of Service: January 28, 2025
Patient complains of severe right upper extremity pain from the shoulder down to her arm, she states she is not able to move her right arm. Denies chest pain, no fever, no vomiting.
Objective Data
-
Labs:
Laboratory Results
01/28/25
06:31
WBC 7.1
Hgb 8.4 L
Hct 27.6 L
Plt Count 265
Sodium 134 L
Potassium 4.6
Chloride 100
Carbon Dioxide 27
BUN 49 H
Creatinine 1.3 H
Glucose 108 H
Calcium 9.6
Vital Signs:
Vital Signs
Temp Pulse Resp BP Pulse Ox
97.9 F 83 17 141/58 96
01/28/25 07:43 01/28/25 07:43 01/28/25 07:43 01/28/25 07:43 01/28/25 07:43
I&O
01/27/25 01/28/25 01/29/25
06:59 06:59 06:59
Intake Total 1870 / 1870 600 / 600
Output Total 2325 / 2325 1650 / 1650
Balance -455 / -455 -1050 / -1050
[2025-01-28] MEDS: ROXICODONE 5 MG PO ×2 (10:23→20:13)
[2025-01-28 11:20] LABS: Glucose - Point of Care 161 mg/dl (70-99)
[2025-01-28] MEDS: NOVOLOG FLEXPEN-LOW RESISTANCE 1 UNITS SC (12:24)
--- NOTE | 2025-01-28 12:56 | CON.ORTHO ---
Consultation
-
Date/Time Consultation Requested: January 23/1119
Date/Time Consultation Performed: January 23/1230
Requesting Provider: Maria Teresa Samuel
Performing Provider: Storm for [place]
Reason for Consultation: Right shoulder/arm pain
Consultation - Orthopedics
History
History of Present Illness:
Patient is an 85 y/o female past medical history of CAD, CHF, CKD, and DM who presents with vomiting and urinary retention. Patient reports difficulty urinated for the past 4 days. She developed vomiting which prompted her to come to the emergency
department for evaluation. Bladder scan revealed 900cc and Reed catheter was placed in ED with improvement in symptoms. during admission and further workup she started complaining of neck and posterior right shoulder pain which radiated all the
way down to her right hand. X-rays and CT scan of the right shoulder showed some mild arthritic changes but nothing acute. We were requested in consultation with regards to her right shoulder symptoms
Past Medical History:
Coronary Artery Disease s/p CABG
Chronic HFpEF
Essential Hypertension
Hyperlipidemia
Diabetes Mellitus, Type II
CKD Stage III
Chronic Pain Syndrome
Peripheral Neuropathy
Class II Obesity due to Excess Calories
Past Surgical History:
CABG
Social History:
Tobacco: Former Smoker
Living: Other (Independent Apartment at [facility])
Family History:
Family History: Not pertinent
ROS:
12 point negative except for those mentioned in the HPI
Allergies / Home Medications
Allergy/AdvReac Type Severity Reaction Status Date / Time
amoxicillin Allergy Anaphylaxis Verified 01/25/25 11:41
bee venom protein (honey bee) Allergy Anaphylaxis Verified 01/25/25 11:41
clindamycin Allergy Anaphylaxis Verified 01/25/25 11:41
Penicillins Allergy Anaphylaxis Verified 01/25/25 11:41
�Medication �Instructions �Recorded
isosorbide mononitrate 30 mg 30 mg PO DAILY Heart 12/30/22
tablet,extended release 24 hr Disease/Condition
metoprolol tartrate 100 mg tablet 100 mg PO BID Blood Pressure 12/30/22
therapeutic multivitamin 1 tab PO QPM Supplement 12/30/22
aspirin 81 mg chewable tablet 81 mg PO DAILY Blood Clot 07/24/23
Prevention/Tx
cholecalciferol (vitamin D3) 50 50 mcg PO DAILY Supplement 07/24/23
mcg (2,000 unit) capsule (Vitamin
D3)
fenofibrate nanocrystallized 48 mg 48 mg PO DAILY High Cholesterol 07/24/23
tablet
fluticasone propionate 50 1 spray intranasal BIDPRN PRN 07/24/23
mcg/actuation nasal congestion
spray,suspension
gabapentin 300 mg capsule 300 mg PO QID Pain 03/20/24
hydralazine 25 mg tablet 25 mg PO BID Blood Pressure 03/20/24
rosuvastatin 20 mg tablet 20 mg PO QPM High Cholesterol 03/20/24
Lactobac no.2-Bifidobac no.1-S. 1 cap PO QPM 01/25/25
thermo 112.5 billion cell capsule
(Visbiome)
acetaminophen 650 mg 1,300 mg PO BIDPRN PRN mild pain 01/25/25
tablet,extended release
coenzyme Q10 100 mg capsule 300 mg PO QPM 01/25/25
(CoQ-10)
cyanocobalamin (vitamin B-12) 1,000 mcg PO DAILY 01/25/25
1,000 mcg tablet,extended release
docusate sodium 100 mg capsule 200 mg PO DAILY PRN constipation 01/25/25
(Stool Softener)
furosemide 20 mg tablet 40 mg PO BID 01/25/25
metformin 1,000 mg tablet 500 mg PO BID 01/25/25
nystatin 100,000 unit/gram topical 1 applic topical DIRECTED apply 01/25/25
powder under belly folds
omeprazole 20 mg capsule,delayed 20 mg PO DAILY 01/25/25
release
oxycodone-acetaminophen 5 mg-325 1 tab PO TID PRN severe pain 01/25/25
mg tablet
Vital Signs / Lab Results
Temp Pulse Resp BP Pulse Ox
97.9 F 83 17 141/58 96
01/28/25 07:43 01/28/25 07:43 01/28/25 07:43 01/28/25 07:43 01/28/25 08:00
01/28/25 06:31
01/28/25 06:31
Assessment / Plan
PE: In bed. no obvious or palpable deformities. Lidocaine patch in place. right sided cervical paraspinal pain and posterior shoulder discomfort generalized in nature. Some mild discomfort over the anterolateral shoulder. Active range of motion,
due to pain, essentially nil. Passively I can range her to 160 degrees of forward elevation, 110 of abduction, and 50 degrees of external rotation. this was all fairly painful for her with pain described, all the way down the arm. Due to pain
strength testing not possible. Elbow, wrist, and hand all move well. No atrophy noted. Negative Lily sign. Slight sensation deficit in the right dorsal lateral hand compared to the left. DNVI RUE
Diagnostics:
RIGHT shoulder Xrays and CTw wiithout acute findings. Very mild arthritic changes of the GHJ with small effusion. ACJOA
Impression: Cervical radiculopathy
Plan: I did discuss the case with attending hospitalist, Dr. Samuel. She does have some very mild arthritic changes of the shoulder joint, but her exam does not line up with an intrinsic shoulder issue. Based on exam I am not concerned for adhesive
capsulitis. Her subjective complaints and clinical exam lend itself to a cervical radiculopathy. She is under the care of a painter tumbling barrel, Dr. Quiroga, and reports an upcoming appointment on 11 February. She does have a history of low back
issues and treatment for sciatica. Continue treatment per the primary medical team for admitting diagnosis of UTI. although I do not feel as though any advanced imaging of the neck or spine/neurosurgical consultation is necessary, I will leave this
up to Dr. Samuel. If not contraindicated a steroid taper and some muscle relaxers might be beneficial. PT/OT as well. I will request a sling to the RUE for comfort measures, however I do not want her relying on this, as she could set herself up for
adhesive capsulitis, which is not currently present. Orthopaedics to sign off for now. Recommend outpatient follow-up with Dr. Quiroga on discharge. please reengage with any pertinent questions related to her RUE symptoms as necessary.
--- NOTE | 2025-01-28 13:17 | W.PN.CARDCBS ---
Addendum entered and electronically signed by Saturnino Mendoza MD 01/28/25 13:53:
I saw and examined the patient.
The MULTIMEDIA ASSISTANT or PA's note was reviewed and I agree with the note.
Comment: General: Well developed, well nourished in NAD.
Neck: Supple, no JVD, HJR, carotids +2 B/L, no bruits bilaterally.
Heart: Non displaced PMI, RRR, no murmurs, No S3, S4, no rubs.
Lungs: Scattered rhonchi
Extremities: No clubbing, cyanosis or edema bilaterally.
Neuro: Grossly nonfocal, awake, alert and oriented x3.
She seems to be improving. She is on 2 L of oxygen but may have been on 3 L of oxygen at home. Consider change to oral Lasix in a.m. needs rehab.
Original Note:
Today's Communication / Plan
-
Continue IV lasix, close to transitioning to PO
Abx per primary service for UTI
Impression / Plan
-
PCP: Dr. Becka Lacy
Cardiology: Dr. Jaime
Impression:
Urinary retention
UTI
Acute on Chronic HFpEF
CAD s/p remote CABG
CKD 3a
HTN
HLD
DM 2
Neuropathy
Chronic back pain
Anemia
Remote former smoker
Chronic anemia
Obesity
Chronic leg neuropathy
Nuclear stress test 11/16/21: moderate sized predominantly fixed area of mildly decreased perfusion mid anterior wall, EF 66%
PET CT scan on 05/29/2024: showed normal myocardial perfusion imaging with no fixed or reversible defects, normal systolic function, EF greater than 70%.
Echo 12/31/2022: EF 55-60%, mild cLVH, no significant valvular disease
Echo 10/17/24: EF 55-60%, mild TR, PAP 35-40, no change c/w 12/2022
Plan:
-Presented with urinary retention. Admitted with UTI and acute heart failure exacerbation.
-Diuresing with IV lasix 40mg BID. Weight unchanged overnight at 200 lbs which is approximately her prior dry weight. Likely can transition to PO lasix in the next 24-48 hours.
-Creat improving, down to 1.3 on 01/28.
-Continue to follow daily weights, I&Os.
-Recent echo 09/2024 with preserved EF as above. No need to repeat this admission.
-Continue lopressor, hydralazine, imdur. Not on ADRIANE/ARB/aldosterone antagonist w/ CKD. Avoiding SGLT2 inhibitor w/ UTI.
-Continue abx per primary service.
-Continue aspirin, rosuvastatin.
Progress Note - Associate Relations Specialist
Subjective
Date of Service: January 28, 2025
Objective
Labs:
01/28/25 06:31
01/28/25 06:31
Labs
Hgb 8.4 g/dL (12.0-16.0) L 01/28/25 06:31
Hct 27.6 % (37.0-47.0) L 01/28/25 06:31
Plt Count 265 10^3/uL (130-400) 01/28/25 06:31
Sodium 134 mmol/L (135-145) L 01/28/25 06:31
Potassium 4.6 mmol/L (3.5-5.1) 01/28/25 06:31
BUN 49 mg/dl (7-17) H 01/28/25 06:31
Creatinine 1.3 mg/dL (0.6-1.0) H 01/28/25 06:31
Glucose 108 mg/dl (70-99) H 01/28/25 06:31
Troponins
01/26/25 01/26/25 01/27/25
16:29 22:25 06:49
Troponin I 0.022 0.021 0.029
Vital Signs and I&O:
Vital Signs
Temp Pulse Resp BP Pulse Ox
97.9 F 83 17 141/58 96
01/28/25 07:43 01/28/25 07:43 01/28/25 07:43 01/28/25 07:43 01/28/25 08:00
Vital Signs
Temp Pulse Resp BP Pulse Ox
97.9 F 83 17 141/58 96
01/28/25 07:43 01/28/25 07:43 01/28/25 07:43 01/28/25 07:43 01/28/25 08:00
Intake & Output
01/26/25 01/27/25 01/28/25 01/29/25
06:59 06:59 06:59 06:59
Intake Total 1110 / 1110 1870 / 1870 600 / 600
Output Total 4250 / 4250 2325 / 2325 1650 / 1650
Balance -3140 / -3140 -455 / -455 -1050 / -1050
Physical Exam
Physical Exam
GEN: No distress
LUNGS: 2L NC
CV: Reg
[2025-01-28 15:20] VITALS: BP 137/62
[2025-01-28] MEDS: LEVAQUIN 250 MG PO (15:26)
[2025-01-28] MEDS: DELTASONE 50 MG PO (15:27)
[2025-01-28] MEDS: FLEXERIL 5 MG PO ×2 (15:27→22:13)
[2025-01-28 15:30] VITALS: BP 137/62
--- NOTE | 2025-01-28 16:12 | PTCARENOTE ---
Patient reported urinating an unmeasured 'large amount' at 1430. This RN then bladder scanned the patient for a PVR of 636. Patient was encouraged to urinate again - she put out 350cc more. No intervention at this time.
--- NOTE | 2025-01-28 16:17 | CM ---
JOAQUIM Sherwood. Discharge POC: Therapy rec for SNF. Patient resides at [facility]. Referral to Chuyita Velásquez.
[2025-01-28 16:39] LABS: Glucose - Point of Care 179 mg/dl (70-99)
[2025-01-28] MEDS: CRESTOR 20 MG PO (17:14)
[2025-01-28] MEDS: VISBIOME 1 CAP PO (17:14)
[2025-01-28] MEDS: NOVOLOG FLEXPEN-MODERATE RESISTANCE 1 UNITS SC (17:14)
[2025-01-28] MEDS: FEOSOL 325 MG PO (20:14)
[2025-01-28] MEDS: SENOKOT-S PO (20:15)
[2025-01-28] MEDS: REMOVE LIDOCAINE PATCH 2 PATCH REMOVE (20:15)
[2025-01-28 22:08] LABS: Glucose - Point of Care 224 mg/dl (70-99)
[2025-01-28] MEDS: LANTUS 0.05 UNITS SC (22:13)
[2025-01-28 23:08] VITALS: BP 103/60
[2025-01-29] MEDS: TYLENOL PO (01:23)
[2025-01-29] MEDS: TYLENOL 650 MG PO ×6 (04:38→23:55)
[2025-01-29 06:00] VITALS: BMI 35.7
[2025-01-29] MEDS: ROXICODONE 5 MG PO ×4 (06:04→23:54)
[2025-01-29 07:11] LABS: Hematocrit 26.4 % (37.0-47.0); Hemoglobin 8.3 g/dL (12.0-16.0); Mean Corp Hgb Conc. 31.4 g/dL (33.0-37.0); Mean Corpuscular Volume 88.6 fL (81.0-99.0); Platelet Count 286 10^3/uL (130-400); Red Cell Dist. Width 14.6 % (11.5-14.5)
[2025-01-29 07:12] VITALS: BP 95/65
[2025-01-29 07:26] LABS: Glucose - Point of Care 142 mg/dl (70-99)
[2025-01-29 07:41] LABS: Blood Urea Nitrogen 46 mg/dl (7-17); Calcium 9.2 mg/dl (8.4-10.2); Carbon Dioxide 29 mmol/L (22-30); Chloride 99 mmol/L (98-107); Estimated Creatinine Clearance 36 ml/min; Glucose 139 mg/dl (70-99); Potassium 4.3 mmol/L (3.5-5.1); Sodium 137 mmol/L (135-145); eGFR 44.64
[2025-01-29] MEDS: NOVOLOG FLEXPEN-MODERATE RESISTANCE SC (07:55)
[2025-01-29] MEDS: FLEXERIL 5 MG PO ×3 (07:56→21:30)
[2025-01-29] MEDS: TRICOR 48 MG PO (07:58)
[2025-01-29] MEDS: DELTASONE 40 MG PO (07:58)
[2025-01-29] MEDS: IMDUR (EXTENDED RELEASE) 30 MG PO (07:58)
[2025-01-29] MEDS: LOW STRENGTH ASPIRIN 81 MG PO (07:58)
[2025-01-29] MEDS: NEURONTIN 300 MG PO ×3 (07:58→21:29)
[2025-01-29] MEDS: SENOKOT-S 2 TABLET PO ×2 (07:58→21:30)
[2025-01-29] MEDS: PROTONIX 40 MG PO ×2 (07:58→21:29)
[2025-01-29] MEDS: APRESOLINE 25 MG PO ×2 (07:59→21:29)
[2025-01-29] MEDS: HEPARIN 5000 UNITS SC ×3 (07:59→23:55)
[2025-01-29] MEDS: VITAMIN D3 (cholecalciferol) 50 MCG PO (07:59)
[2025-01-29] MEDS: DESENEX/MITRAZOL/ZEASORB 1 APPLIC TOPICAL ×2 (07:59→21:31)
[2025-01-29] MEDS: LASIX 40 MG IV ×2 (08:04→17:21)
[2025-01-29] MEDS: LOPRESSOR 100 MG PO ×2 (08:05→21:30)
[2025-01-29] MEDS: LIDOCAINE 4% PATCH 2 PATCH TOPICAL (08:05)
[2025-01-29 09:09] VITALS: BP 97/64; PULSE 83; O2SAT 94
--- NOTE | 2025-01-29 10:00 | W.PN.HOSP.TC ---
Today's Communication/Plan
-
Discharge to short-term rehab tomorrow
Assessment / Plan
Assessment / Plan
85F from [facility] w/ hx CAD, CABG, HFpEF, CKDIII, and DM who presents with vomiting and urinary retention. Patient reported difficulty urinating for the past 4 days. She developed vomiting which prompted her to come to the emergency department for
evaluation. Bladder scan revealed 900cc and Reed catheter was placed in ED with improvement in symptoms.
Chronic Pain Syndrome
Right Arm/shoulder Pain suspect d/t Arthritis flare
Cervical radiculopathy
-Patient denies falls
-Shoulder and humerus x-ray appreciate no fracture or dislocation, moderate arthritis Right AC joint
-CT RUE shoulder appreciated small joint effusion, no fracture or dislocation
-Appreciate orthopedic surgery input, patient likely has cervical radiculopathy
-Continue prednisone day 2 out of 7, Flexeril 5 mg 3 times daily, oxycodone as needed, scheduled Tylenol, lidocaine patch
-Can follow up w/ her pain mgt doctor, Dr. Quiroga in office
-PT/OT appreciated SNF rehab, plan for discharge tomorrow
Acute on Chronic HFpEF
01/26 Chest Pain, worsening SOB improved with IV lasix, once IV dilaudid, and Tums
-Patient reported increased lower extremity edema, likely fluid retention d/t obstruction as above
-I/O daily weights
-BNP 4720 though les from prior value 6970 past hospitalization
-01/26 EKG noted no significant change from prior EKG 01/25 initial troponin neg, will cont to trend for now
-01/26 CXR noted possible progressive pulm edema
-Appreciate cardiology input, oral Lasix switched to Lasix 40 mg IV twice daily, likely can transition back to oral in the morning
-Trend creatinine, trend daily weight
Urinary Retention possibly 2/2 UTI vs constipation with poor ambulatory function/sedentary
-Reed catheter placed in ED 01/25, removed 01/28 for void trial -patient reports being able to void
-Urine cultures growing pansensitive E. coli, changed IV levofloxacin that was started on 01/25 to oral levofloxacin, continue D5/5
-Bowel regimen
-Detrol started d/t patient reporting urinary urgency feelings of retention despite Reed (bladder scan noted no significant retention) suspect d/t bladder spasms 2/2 UTI
symptoms since resolved however possible subsequent cognitive impairment noted (conversations moving in circular fashion) patient also more anxious, pressure speech, Detrol since placed on hold
Diabetes Mellitus, Type II
-A1c 6.5
-Anticipate hyperglycemia secondary to prednisone
-Started Lantus 5 units at bedtime, changed from sensitive sliding scale insulin to moderate sliding scale insulin
ELIZABETH on CKD Stage III likely d/t obstruction as above
-Initial Cr 1.8 trending down
-Monitor with dieresis
01/27 Stroke Alert patient reported subjective feelings right sided weakness
Neuro Eval Appreciated NIH score O, Stroke Ruled out
CT head appreciated no acute abn's
Hyponatremia, suspect related to hypervolemia in setting of urinary retention
Mild Metabolic Acidosis
-Continue Lasix
-Continue Fluid Restriction
-Resolved, bicarb supplementation completed, monitor off
Chronic Respiratory Failure
-Currently requiring 2 L of oxygen, better than her baseline of 3 L
GERD
Heartburn
-protonix increased to 40 mg BID
-Tums PRN
Coronary Artery Disease s/p CABG
-Continue aspirin
-Continue isosorbide mononitrate
Essential Hypertension
-Continue metoprolol and hydralazine
Hyperlipidemia
-Continue fenofibrate
Normocytic Anemia
Iron Deficiency Anemia
-vitamin b12 and folic acid noted non-deficient
-Iron supplementation
Peripheral Neuropathy
Sciatica
-Continue Gabapentin
Class II Obesity due to Excess Calories
-Affects all aspects of care
DVT proph: SC Heparin
Code STatus: DNR
PT/OT SNF rehab
Total time spent to see the patient on the floor, examine the patient, review data and lab results, discuss treatment plan with patient, nursing staff around 51 minutes.
Physical Exam
General: No acute distress, obese
HEENT: Hard of Hearing, Anicteric, Moist mucous membranes and Nasal Cannula Supplementation 3L
Respiratory: Right basilar crackles
Cardiac: S1/S2 and Regular Rhythm; No Murmur
GI: Soft and Non Tender
Genito-urinary: Reed in place, clear yellow urine
Musculoskeletal: No Clubbing, No Cyanosis, +1 pitting edema bilateral lower extremities. Right shoulder pain limited range of motion d/t pain
Skin: Warm and Dry
Neuro: AOx3 conversant Coherent some short term memory issues noted, conversation in circular fashion
Psych: Relatively calm, some anxiousness noted in conversation pressured speech
Anticipated Discharge: Within 24 hours
Subjective/Interval History
-
Date of Service: January 29, 2025
Patient reports her breathing is back to normal. She complains of continued pain from her right shoulder down her right arm down to her fingers. States overall it is better today than yesterday. No fever, no vomiting.
Objective Data
-
Labs:
Laboratory Results
01/29/25
06:01
WBC 5.7
Hgb 8.3 L
Hct 26.4 L
Plt Count 286
Sodium 137
Potassium 4.3
Chloride 99
Carbon Dioxide 29
BUN 46 H
Creatinine 1.2 H
Glucose 139 H
Calcium 9.2
Vital Signs:
Vital Signs
Temp Pulse Resp BP Pulse Ox
97.9 F 85 18 95/65 97
01/29/25 07:12 01/29/25 07:12 01/29/25 07:12 01/29/25 07:12 01/29/25 07:12
I&O
01/28/25 01/29/25 01/30/25
06:59 06:59 06:59
Intake Total 600 / 600 480 / 480
Output Total 1650 / 1650 450 / 450
Balance -1050 / -1050 30 / 30
[2025-01-29 10:34] LABS: Iron 132 ug/dl (37-170)
[2025-01-29 10:45] LABS: Total Iron Binding Capacity 467 ug/dl (265-497)
--- NOTE | 2025-01-29 11:05 | W.PN.CARDCBS ---
Addendum entered and electronically signed by Dustin Pugh DO 01/29/25 14:48:
I saw and examined the patient.
The Assistant Cook's note was reviewed and I agree with the note.
Comment:
Plan:
Cont IV lasix with likely transition to oral lasix next 24 hrs
Monitor daily wts, Is and Os and cr
Wean supplemental O2 as able
Continue PT/OT
Will arrange outpatient cardiac follow-up.
Original Note:
Today's Communication / Plan
-
continue IV lasix, likely transition to po in AM
follow Cr and BP
wean supp O2 as able
PT/OT
will arrange OP cardiac follow up
Impression / Plan
-
PCP: Dr. Becka Lacy
Cardiology: Dr. Jaime
Impression:
Urinary retention
UTI
Acute on Chronic HFpEF
CAD s/p remote CABG
CKD 3a
HTN
HLD
DM 2
Neuropathy
Chronic back pain
Anemia
Remote former smoker
Chronic anemia
Obesity
Chronic leg neuropathy
Nuclear stress test 11/16/21: moderate sized predominantly fixed area of mildly decreased perfusion mid anterior wall, EF 66%
PET CT scan on 05/29/2024: showed normal myocardial perfusion imaging with no fixed or reversible defects, normal systolic function, EF greater than 70%.
Echo 12/31/2022: EF 55-60%, mild cLVH, no significant valvular disease
Echo 10/17/24: EF 55-60%, mild TR, PAP 35-40, no change c/w 12/2022
Plan:
-Presented with urinary retention. Admitted with UTI and acute heart failure exacerbation.
-her main complaint today is R shoulder and arm pain, felt to be due to cervical radiculopathy. ortho following. continue pain mgmt, PT/OT
-Diuresing with IV lasix 40mg BID. weight if accurate down to 195 pounds which is lowest it has ever been. she remains with some crackles on exam and reports some continued SOB. Cr continues to improve. will continue IV lasix today as BP tolerates
and likely transition to po in next 24-48 hours.
-follow BPs, which was on low side this AM. unclear if accurate
-Continue to follow daily weights, I&Os.
-she reports prior to admission was chronically on 3L NC, currently O2 sats stable on 2L, continue to wean as able.
-iron studies ok in setting of CHF with chronic anemia.
-Recent echo 09/2024 with preserved EF as above. No need to repeat this admission.
-Continue lopressor, hydralazine, imdur. Not on ADRIANE/ARB/aldosterone antagonist w/ CKD. Avoiding SGLT2 inhibitor w/ UTI.
-Continue abx per primary service.
-Continue aspirin, rosuvastatin, tricor.
-will arrange OP cardiac follow up
Progress Note - Survey Analyst
Subjective
Date of Service: January 29, 2025
reports LE edema improved. reports R shoulder/arm pain. reports some continued SOB
Objective
Labs:
01/29/25 06:01
01/29/25 06:01
Labs
Hgb 8.3 g/dL (12.0-16.0) L 01/29/25 06:01
Hct 26.4 % (37.0-47.0) L 01/29/25 06:01
Plt Count 286 10^3/uL (130-400) 01/29/25 06:
Sodium 137 mmol/L (135-145) 01/29/25 06:
Potassium 4.3 mmol/L (3.5-5.1) 01/29/25 06:01
BUN 46 mg/dl (7-17) H 01/29/25 06:01
Creatinine 1.2 mg/dL (0.6-1.0) H 01/29/25 06:01
Glucose 139 mg/dl (70-99) H 01/29/25 06:01
Troponins
01/26/25 01/26/25 01/27/25
16:29 22:25 06:49
Troponin I 0.022 0.021 0.029
Vital Signs and I&O:
Vital Signs
Temp Pulse Resp BP Pulse Ox
97.9 F 85 18 95/65 97
01/29/25 07:12 01/29/25 07:12 01/29/25 07:12 01/29/25 07:12 01/29/25 07:12
Vital Signs
Temp Pulse Resp BP Pulse Ox
97.9 F 85 18 95/65 97
01/29/25 07:12 01/29/25 07:12 01/29/25 07:12 01/29/25 07:12 01/29/25 07:12
Intake & Output
01/27/25 01/28/25 01/29/25 01/30/25
07:59 07:59 07:59 07:59
Intake Total 1870 / 1870 600 / 600 480 / 480
Output Total 2325 / 2325 1650 / 1650 450 / 450
Balance -455 / -455 -1050 / -1050
Physical Exam
Physical Exam
GEN: No distress, awake, alert, oriented x3. on supp O2. sitting in chair. forgetful at times
HEENT: supple, anicteric, mmm, eomi
LUNGS: Crackles B/L bases, no wheezes
CV: Reg, S1/S2, no murmur
ABD: soft, BS+, NT/ND
EXT: No cyanosis, clubbing. trace edema of B/L LE
NEURO: Gross non-focal
SKIN: Warm, pink, dry. No rash
[2025-01-29 11:10] LABS: Ferritin 9.7 ng/ml (11.1-264.0)
[2025-01-29 11:29] LABS: Glucose - Point of Care 253 mg/dl (70-99)
[2025-01-29] MEDS: NOVOLOG FLEXPEN-MODERATE RESISTANCE 5 UNITS SC ×2 (12:07→17:26)
[2025-01-29 15:00] VITALS: BP 105/81; PULSE 83; O2SAT 95
[2025-01-29 15:26] VITALS: BP 105/81
[2025-01-29 16:56] LABS: Glucose - Point of Care 251 mg/dl (70-99)
[2025-01-29] MEDS: LEVAQUIN 250 MG PO (17:22)
[2025-01-29] MEDS: CRESTOR 20 MG PO (17:23)
[2025-01-29] MEDS: VISBIOME 1 CAP PO (17:23)
[2025-01-29] MEDS: NOVOLOG FLEXPEN 3 UNITS SC (17:25)
[2025-01-29] MEDS: TUMS CHEWABLE TABLET 200 MG PO (17:28)
[2025-01-29] MEDS: REMOVE LIDOCAINE PATCH 2 PATCH REMOVE (21:30)
[2025-01-29] MEDS: FEOSOL 325 MG PO (21:30)
[2025-01-29] MEDS: LANTUS 0.1 UNITS SC (21:32)
[2025-01-29 21:41] LABS: Glucose - Point of Care 144 mg/dl (70-99)
[2025-01-30] MEDS: TYLENOL PO ×2 (04:41→22:56)
[2025-01-30 06:00] VITALS: BMI 35.7
[2025-01-30 07:13] VITALS: BP 119/48
[2025-01-30 08:06] LABS: Glucose - Point of Care 135 mg/dl (70-99)
[2025-01-30] MEDS: NOVOLOG FLEXPEN 3 UNITS SC ×3 (08:35→17:18)
[2025-01-30] MEDS: NOVOLOG FLEXPEN-MODERATE RESISTANCE SC (08:36)
[2025-01-30] MEDS: LIDOCAINE 4% PATCH 2 PATCH TOPICAL (08:37)
[2025-01-30] MEDS: SENOKOT-S 2 TABLET PO ×2 (08:39→20:12)
[2025-01-30] MEDS: LOPRESSOR 100 MG PO ×2 (08:39→20:16)
[2025-01-30] MEDS: FLEXERIL 5 MG PO ×3 (08:39→20:11)
[2025-01-30] MEDS: PROTONIX 40 MG PO ×2 (08:39→20:11)
[2025-01-30] MEDS: VITAMIN D3 (cholecalciferol) 50 MCG PO (08:40)
[2025-01-30] MEDS: DELTASONE 40 MG PO (08:40)
[2025-01-30] MEDS: NEURONTIN 300 MG PO ×3 (08:40→20:12)
[2025-01-30] MEDS: TRICOR 48 MG PO (08:41)
[2025-01-30] MEDS: APRESOLINE 25 MG PO ×2 (08:41→20:16)
[2025-01-30] MEDS: LASIX 40 MG IV (08:41)
[2025-01-30] MEDS: LOW STRENGTH ASPIRIN 81 MG PO (08:41)
[2025-01-30] MEDS: TYLENOL 650 MG PO ×4 (08:41→20:12)
[2025-01-30] MEDS: HEPARIN 5000 UNITS SC ×3 (08:41→22:53)
[2025-01-30] MEDS: IMDUR (EXTENDED RELEASE) 30 MG PO (08:41)
[2025-01-30] MEDS: DESENEX/MITRAZOL/ZEASORB 1 APPLIC TOPICAL ×2 (08:42→20:18)
--- NOTE | 2025-01-30 09:00 | W.PN.HOSP.TC ---
Today's Communication/Plan
-
Discharge to short-term rehab tomorrow
Assessment / Plan
Assessment / Plan
85F from [facility] w/ hx CAD, CABG, HFpEF, CKDIII, and DM who presents with vomiting and urinary retention. Patient reported difficulty urinating for the past 4 days. She developed vomiting which prompted her to come to the emergency department for
evaluation. Bladder scan revealed 900cc and Reed catheter was placed in ED with improvement in symptoms.
Chronic Pain Syndrome
Right Arm/shoulder Pain suspect d/t Arthritis flare
Cervical radiculopathy
-Patient denies falls
-Shoulder and humerus x-ray appreciate no fracture or dislocation, moderate arthritis Right AC joint
-CT RUE shoulder appreciated small joint effusion, no fracture or dislocation
-Appreciate orthopedic surgery input, patient likely has cervical radiculopathy
-Continue prednisone day 3 out of 7, Flexeril 5 mg 3 times daily, oxycodone as needed, scheduled Tylenol, lidocaine patch
-Can follow up w/ her pain mgt doctor, Dr. Quiroga in office -has an appointment on 02/12/2025
-PT/OT appreciated SNF rehab, plan for discharge tomorrow
Acute on Chronic HFpEF
01/26 Chest Pain, worsening SOB improved with IV lasix, once IV dilaudid, and Tums
-Patient reported increased lower extremity edema, likely fluid retention d/t obstruction as above
-I/O daily weights
-BNP 4720 though les from prior value 6970 past hospitalization
-01/26 EKG noted no significant change from prior EKG 01/25 initial troponin neg, will cont to trend for now
-01/26 CXR noted possible progressive pulm edema
-Appreciate cardiology input, hold IV Lasix in the afternoon due to elevated creatinine
-Patient likely can resume oral Lasix tomorrow
-Trend creatinine, trend daily weight
Urinary Retention possibly 2/2 UTI vs constipation with poor ambulatory function/sedentary
-Reed catheter placed in ED 01/25, removed 01/28 for void trial -patient reports being able to void
-Urine cultures growing pansensitive E. coli, patient has completed 5 days of levofloxacin, and does not need any more antibiotics
-Bowel regimen
-Detrol started d/t patient reporting urinary urgency feelings of retention despite Reed (bladder scan noted no significant retention) suspect d/t bladder spasms 2/2 UTI
symptoms since resolved however possible subsequent cognitive impairment noted (conversations moving in circular fashion) patient also more anxious, pressure speech, Detrol since placed on hold
Diabetes Mellitus, Type II
-A1c 6.5
-Anticipate hyperglycemia secondary to prednisone
-Started Lantus 10 units at bedtime, started NovoLog 3 units AC 3 times daily, changed from sensitive sliding scale insulin to moderate sliding scale insulin
ELIZABETH on CKD Stage III likely d/t obstruction as above
-Initial Cr 1.8 trending down
-Monitor with dieresis
01/27 Stroke Alert patient reported subjective feelings right sided weakness
Neuro Eval Appreciated NIH score O, Stroke Ruled out
CT head appreciated no acute abn's
Hyponatremia, suspect related to hypervolemia in setting of urinary retention
Mild Metabolic Acidosis
-Continue Lasix
-Continue Fluid Restriction
-Resolved, bicarb supplementation completed, monitor off
Chronic Respiratory Failure
-Currently requiring 2 L of oxygen, better than her baseline of 3 L
GERD
Heartburn
-protonix increased to 40 mg BID
-Tums PRN
Coronary Artery Disease s/p CABG
-Continue aspirin
-Continue isosorbide mononitrate
Essential Hypertension
-Continue metoprolol and hydralazine
Hyperlipidemia
-Continue fenofibrate
Normocytic Anemia
Iron Deficiency Anemia
-vitamin b12 and folic acid noted non-deficient
-Iron supplementation
Peripheral Neuropathy
Sciatica
-Continue Gabapentin
Class II Obesity due to Excess Calories
-Affects all aspects of care
DVT proph: SC Heparin
Code STatus: DNR
PT/OT SNF rehab
Total time spent to see the patient on the floor, examine the patient, review data and lab results, discuss treatment plan with patient, nursing staff around 41 minutes.
Physical Exam
General: No acute distress, obese
HEENT: Hard of Hearing, Anicteric, Moist mucous membranes and Nasal Cannula Supplementation 3L
Respiratory: Right basilar crackles
Cardiac: S1/S2 and Regular Rhythm; No Murmur
GI: Soft and Non Tender
Genito-urinary: Reed in place, clear yellow urine
Musculoskeletal: No Clubbing, No Cyanosis, +1 pitting edema bilateral lower extremities. Right shoulder pain limited range of motion d/t pain
Skin: Warm and Dry
Neuro: AOx3 conversant Coherent some short term memory issues noted, conversation in circular fashion
Psych: Relatively calm, some anxiousness noted in conversation pressured speech
Anticipated Discharge: Within 24 hours
Subjective/Interval History
-
Date of Service: January 30, 2025
Patient reports her right shoulder and right arm pain are controlled with the prednisone, Flexeril, and oxycodone. She is concerned that she is still not able to use it. Denies chest pain, denies shortness of breath. No fever, no vomiting.
Objective Data
-
Labs:
Laboratory Results
01/30/25
07:15
Sodium Pending
Potassium Pending
Chloride Pending
Carbon Dioxide Pending
BUN Pending
Creatinine Pending
Glucose Pending
Calcium Pending
Vital Signs:
Vital Signs
Temp Pulse Resp BP Pulse Ox
97.9 F 77 18 119/48 97
01/30/25 07:13 01/30/25 07:13 01/30/25 07:13 01/30/25 07:13 01/30/25 07:13
I&O
01/29/25 01/30/25 01/31/25
06:59 06:59 06:59
Intake Total 480 / 480 1440 / 1440
Output Total 450 / 450 350 / 350
Balance 1090 / 1090
[2025-01-30] MEDS: ROXICODONE 5 MG PO ×3 (09:01→20:29)
[2025-01-30 09:10] LABS: Blood Urea Nitrogen 57 mg/dl (7-17); Calcium 9.9 mg/dl (8.4-10.2); Carbon Dioxide 30 mmol/L (22-30); Chloride 97 mmol/L (98-107); Estimated Creatinine Clearance 27 ml/min; Glucose 119 mg/dl (70-99); Potassium 4.4 mmol/L (3.5-5.1); Sodium 136 mmol/L (135-145); eGFR 31.61
--- NOTE | 2025-01-30 10:41 | W.PN.CARDCBS ---
Addendum entered and electronically signed by Tanika Jaime DO 01/30/25 22:46:
I saw and examined the patient.
The Mingler Operator's note was reviewed and I agree with the note.
Comment: Patient was seen and examined sitting out of bed to chair overall feeling better less shortness of breath. Continues to have neck and right shoulder pain being seen by orthopedics
Awake alert oriented sitting out of bed to chair on 2 L nasal cannula
Regular, positive S1-S2. No murmurs
Bronchovesicular breath sounds, decreased but clear
No lower extremity edema
Plan:
Admitted with UTI and acute heart failure exacerbation.
-remains with R shoulder and arm pain, felt to be due to cervical radiculopathy. continue pain mgmt, PT/OT
-Cr up to 1.6 today. was given IV lasix this morning. hold afternoon lasix today and resume po lasix 40mg BID in AM.
-she reports prior to admission was chronically on 3L NC, currently O2 sats stable on 2L, continue to wean as able.
-iron studies ok in setting of CHF with chronic anemia.
-Recent echo 09/2024 with preserved EF as above. No need to repeat this admission.
-Continue lopressor, hydralazine, imdur. Not on ADRIANE/ARB/aldosterone antagonist w/ CKD. Avoiding SGLT2 inhibitor w/ UTI.
-Continue abx per primary service.
-Continue aspirin, rosuvastatin, tricor.
-OP cardiac follow up arranged
-BMP in 1 week
-plan for DC to SNF
-Will sign off, recall if needed
Original Note:
Today's Communication / Plan
-
holding afternoon lasix as Cr up to 1.6. transition to po lasix in AM
wean supp O2
BMP in 1 week
OP cardiac follow up arranged
Impression / Plan
-
PCP: Dr. Becka Lacy
Cardiology: Dr. Jaime
Impression:
Urinary retention
UTI
Acute on Chronic HFpEF
CAD s/p remote CABG
CKD 3a
HTN
HLD
DM 2
Neuropathy
Chronic back pain
Anemia
Remote former smoker
Chronic anemia
Obesity
Chronic leg neuropathy
Nuclear stress test 11/16/21: moderate sized predominantly fixed area of mildly decreased perfusion mid anterior wall, EF 66%
PET CT scan on 05/29/2024: showed normal myocardial perfusion imaging with no fixed or reversible defects, normal systolic function, EF greater than 70%.
Echo 12/31/2022: EF 55-60%, mild cLVH, no significant valvular disease
Echo 10/17/24: EF 55-60%, mild TR, PAP 35-40, no change c/w 12/2022
Plan:
-Presented with urinary retention. Admitted with UTI and acute heart failure exacerbation.
-remains with R shoulder and arm pain, felt to be due to cervical radiculopathy. continue pain mgmt, PT/OT
-Cr up to 1.6 today. was given IV lasix this morning. hold afternoon lasix today and resume po lasix 40mg BID in AM.
-she reports prior to admission was chronically on 3L NC, currently O2 sats stable on 2L, continue to wean as able.
-iron studies ok in setting of CHF with chronic anemia.
-Recent echo 09/2024 with preserved EF as above. No need to repeat this admission.
-Continue lopressor, hydralazine, imdur. Not on ADRIANE/ARB/aldosterone antagonist w/ CKD. Avoiding SGLT2 inhibitor w/ UTI.
-Continue abx per primary service.
-Continue aspirin, rosuvastatin, tricor.
-OP cardiac follow up arranged
-BMP in 1 week
-plan for DC to SNF
Progress Note - Silvering Applicator
Subjective
Date of Service: January 30, 2025
denies CP. reports ongoing shoulder/arm discomfort
Objective
Labs:
01/29/25 06:01
01/30/25 07:15
Labs
Hgb 8.3 g/dL (12.0-16.0) L 01/29/25 06:01
Hct 26.4 % (37.0-47.0) L 01/29/25 06:01
Plt Count 286 10^3/uL (130-400) 01/29/25 06:01
Sodium 136 mmol/L (135-145) 01/30/25 07:15
Potassium 4.4 mmol/L (3.5-5.1) 01/30/25 07:15
BUN 57 mg/dl (7-17) H 01/30/25 07:15
Creatinine 1.6 mg/dL (0.6-1.0) H 01/30/25 07:15
Glucose 119 mg/dl (70-99) H 01/30/25 07:15
Vital Signs and I&O:
Vital Signs
Temp Pulse Resp BP Pulse Ox
97.9 F 77 18 119/48 97
01/30/25 07:13 01/30/25 07:13 01/30/25 07:13 01/30/25 07:13 01/30/25 07:13
Vital Signs
Temp Pulse Resp BP Pulse Ox
97.9 F 77 18 119/48 97
01/30/25 07:13 01/30/25 07:13 01/30/25 07:13 01/30/25 07:13 01/30/25 07:13
Intake & Output
01/28/25 01/29/25 01/30/25 01/31/25
07:59 07:59 07:59 07:59
Intake Total 600 / 600 480 / 480 1440 / 1440
Output Total 1650 / 1650 450 / 450 350 / 350
Balance -1050 / -1050 1090 / 1090
--- NOTE | 2025-01-30 10:53 | CM ---
Chart reviewed. Patient resides at [facility].
Therapy rec SNF, the [facility] accepted. Per Joi/admissions, a bed will be available for patient tomorrow. Requesting transport time around 11 am or after.
Per hospitalist, patient can d/c tomorrow
Updated patient and granddaughter at bedside. Patient will discuss w/ granddaughter getting portable O2 to hospital and transport tomorrow. Patient does not medically qualify for an ambulance
[facility] SN[facility]
Report: [phone]

Plan: [facility] tomorrow
[2025-01-30 11:59] LABS: Glucose - Point of Care 199 mg/dl (70-99)
[2025-01-30] MEDS: NOVOLOG FLEXPEN-MODERATE RESISTANCE 1 UNITS SC (12:51)
[2025-01-30 15:30] VITALS: BP 136/58
[2025-01-30 16:51] LABS: Glucose - Point of Care 330 mg/dl (70-99)
[2025-01-30] MEDS: VISBIOME 1 CAP PO (17:15)
[2025-01-30] MEDS: CRESTOR 20 MG PO (17:15)
[2025-01-30] MEDS: NOVOLOG FLEXPEN-MODERATE RESISTANCE 7 UNITS SC (17:17)
[2025-01-30] MEDS: FEOSOL 325 MG PO (20:12)
[2025-01-30] MEDS: REMOVE LIDOCAINE PATCH 2 PATCH REMOVE (20:16)
[2025-01-30 21:27] LABS: Glucose - Point of Care 256 mg/dl (70-99)
[2025-01-30] MEDS: LANTUS 0.1 UNITS SC (22:53)
[2025-01-30 23:15] VITALS: BP 106/57
[2025-01-31] MEDS: TYLENOL PO (04:16)
[2025-01-31] MEDS: ROXICODONE 5 MG PO (05:53)
[2025-01-31 06:00] VITALS: BMI 36.3
[2025-01-31 07:31] VITALS: BP 106/52
[2025-01-31 07:43] LABS: Glucose - Point of Care 119 mg/dl (70-99)
[2025-01-31] MEDS: NOVOLOG FLEXPEN SC (08:04)
[2025-01-31] MEDS: NOVOLOG FLEXPEN-MODERATE RESISTANCE SC (08:11)
[2025-01-31 08:16] LABS: Blood Urea Nitrogen 72 mg/dl (7-17); Calcium 10.2 mg/dl (8.4-10.2); Carbon Dioxide 31 mmol/L (22-30); Chloride 97 mmol/L (98-107); Estimated Creatinine Clearance 29 ml/min; Glucose 128 mg/dl (70-99); Potassium 4.8 mmol/L (3.5-5.1); Sodium 136 mmol/L (135-145); eGFR 34.15
[2025-01-31] MEDS: FLEXERIL 5 MG PO (08:18)
[2025-01-31] MEDS: TYLENOL 650 MG PO (08:18)
[2025-01-31] MEDS: DELTASONE 40 MG PO (08:18)
[2025-01-31] MEDS: SENOKOT-S 2 TABLET PO (08:18)
[2025-01-31] MEDS: NEURONTIN 300 MG PO (08:18)
[2025-01-31] MEDS: PROTONIX 40 MG PO (08:19)
[2025-01-31] MEDS: LOW STRENGTH ASPIRIN 81 MG PO (08:19)
[2025-01-31] MEDS: TRICOR 48 MG PO (08:19)
[2025-01-31] MEDS: VITAMIN D3 (cholecalciferol) 50 MCG PO (08:19)
[2025-01-31] MEDS: APRESOLINE PO (08:20)
[2025-01-31] MEDS: LIDOCAINE 4% PATCH 2 PATCH TOPICAL (08:21)
[2025-01-31] MEDS: HEPARIN 5000 UNITS SC (08:21)
[2025-01-31] MEDS: IMDUR (EXTENDED RELEASE) 30 MG PO (08:21)
[2025-01-31] MEDS: LOPRESSOR 100 MG PO (08:21)
[2025-01-31] MEDS: DESENEX/MITRAZOL/ZEASORB 1 APPLIC TOPICAL (08:24)
--- NOTE | 2025-01-31 09:38 | W.PN.HOSP.TC ---
Today's Communication/Plan
-
Discharge today
Assessment / Plan
Assessment / Plan
85F from [facility] w/ hx CAD, CABG, HFpEF, CKDIII, and DM who presents with vomiting and urinary retention. Patient reported difficulty urinating for the past 4 days. She developed vomiting which prompted her to come to the emergency department for
evaluation. Bladder scan revealed 900cc and Reed catheter was placed in ED with improvement in symptoms.
Chronic Pain Syndrome
Right Arm/shoulder Pain suspect d/t Arthritis flare
Cervical radiculopathy
-Patient denies falls
-Shoulder and humerus x-ray appreciate no fracture or dislocation, moderate arthritis Right AC joint
-CT RUE shoulder appreciated small joint effusion, no fracture or dislocation
-Appreciate orthopedic surgery input, patient likely has cervical radiculopathy
-Continue prednisone day 4 out of 7, Flexeril 5 mg 3 times daily, oxycodone as needed, scheduled Tylenol, lidocaine patch
-Will discharge her on prednisone for 3 more days, with Lantus and NovoLog for 3 days to cover for hyperglycemia for diabetes
-Can follow up w/ her pain mgt doctor, Dr. Quiroga in office -has an appointment on 02/12/2025
-Medically stable for discharge to short-term rehab today
Acute on Chronic HFpEF
01/26 Chest Pain, worsening SOB improved with IV lasix, once IV dilaudid, and Tums
-Patient reported increased lower extremity edema, likely fluid retention d/t obstruction as above
-I/O daily weights
-BNP 4720 though les from prior value 6970 past hospitalization
-01/26 EKG noted no significant change from prior EKG 01/25 initial troponin neg, will cont to trend for now
-01/26 CXR noted possible progressive pulm edema
-Appreciate cardiology input, status post IV Lasix
-Cardiology recommends resuming patient's previous Lasix dose of 40 mg twice a day on 02/01, needs repeat BMP in 1 week
-Trend creatinine, trend daily weight
Urinary Retention possibly 2/2 UTI vs constipation with poor ambulatory function/sedentary
-Reed catheter placed in ED 01/25, removed 01/28 for void trial -patient reports being able to void
-Urine cultures growing pansensitive E. coli, patient has completed 5 days of levofloxacin, and does not need any more antibiotics
-Bowel regimen
-Detrol started d/t patient reporting urinary urgency feelings of retention despite Reed (bladder scan noted no significant retention) suspect d/t bladder spasms 2/2 UTI
symptoms since resolved however possible subsequent cognitive impairment noted (conversations moving in circular fashion) patient also more anxious, pressure speech, Detrol since placed on hold
Diabetes Mellitus, Type II
-A1c 6.5. Anticipate hyperglycemia secondary to prednisone
-Started Lantus 10 units at bedtime, started NovoLog 5 units AC 3 times daily
-Patient instructed to continue insulin upon discharge for 3 days while she is on steroids, then stop
ELIZABETH on CKD Stage III likely d/t obstruction as above
-Initial Cr 1.8 trending down
-Monitor with dieresis
01/27 Stroke Alert patient reported subjective feelings right sided weakness
Neuro Eval Appreciated NIH score O, Stroke Ruled out
CT head appreciated no acute abn's
Hyponatremia, suspect related to hypervolemia in setting of urinary retention
Mild Metabolic Acidosis
-Continue Lasix
-Continue Fluid Restriction
-Resolved, bicarb supplementation completed, monitor off
Chronic Respiratory Failure
-Currently requiring 2 L of oxygen, better than her baseline of 3 L
GERD
Heartburn
-protonix increased to 40 mg BID
-Tums PRN
Coronary Artery Disease s/p CABG
-Continue aspirin
-Continue isosorbide mononitrate
Essential Hypertension
-Continue metoprolol and hydralazine
Hyperlipidemia
-Continue fenofibrate
Normocytic Anemia
Iron Deficiency Anemia
-vitamin b12 and folic acid noted non-deficient
-Iron supplementation
Peripheral Neuropathy
Sciatica
-Continue Gabapentin
Class II Obesity due to Excess Calories
-Affects all aspects of care
DVT proph: SC Heparin
Code STatus: DNR
PT/OT SNF rehab
Physical Exam
General: No acute distress, obese
HEENT: Hard of Hearing, Anicteric, Moist mucous membranes and Nasal Cannula Supplementation 3L
Respiratory: Right basilar crackles
Cardiac: S1/S2 and Regular Rhythm; No Murmur
GI: Soft and Non Tender
Genito-urinary: Reed in place, clear yellow urine
Musculoskeletal: No Clubbing, No Cyanosis, +1 pitting edema bilateral lower extremities. Right shoulder pain limited range of motion d/t pain
Skin: Warm and Dry
Neuro: AOx3 conversant Coherent some short term memory issues noted, conversation in circular fashion
Psych: Relatively calm, some anxiousness noted in conversation pressured speech
Anticipated Discharge: Today
Subjective/Interval History
-
Date of Service: January 31, 2025
Patient reports her right upper extremity pain is controlled with oxycodone, lidocaine patches. She still has difficulty with strength. No recurrence of shortness of breath. No fever, no vomiting.
Objective Data
-
Labs:
Laboratory Results
01/31/25
06:47
Sodium 136
Potassium 4.8
Chloride 97 L
Carbon Dioxide 31 H
BUN 72 H
Creatinine 1.5 H
Glucose 128 H
Calcium 10.2
Vital Signs:
Vital Signs
Temp Pulse Resp BP Pulse Ox
98.1 F 78 20 106/52 93
01/31/25 07:31 01/31/25 07:31 01/31/25 07:31 01/31/25 08:20 01/31/25 07:31
I&O
01/30/25 01/31/25 02/01/25
06:59 06:59 06:59
Intake Total 1440 / 1440 780 / 780
Output Total 350 / 350
Balance 1090 / 1090 780 / 780
[2025-01-31] MEDS: NOVOLOG FLEXPEN 3 UNITS SC (09:49)
--- NOTE | 2025-01-31 11:15 | CM ---
Patient seen at bedside with grand-daughter &
IMM explained & signed in chart
COVID test ordered. In chart
Notified Joi at [facility]
Grand-daughter brought portable 02 as well as transport wc
PLAN: [facility]
Report: [phone]

grand-daughter to transport
[2025-01-31 11:56] LABS: COVID-19 Antigen Negative (Negative)
--- NOTE | 2025-01-31 12:20 | W.DCSUMMARY ---
Discharge Summary
Discharge Data
Date of Admission: 01/25/25
Date of Discharge: 01/31/25
-
Pending Results: No
Hospital Course
Discharge diagnosis:
Acute urinary retention
Acute urinary tract infection
Acute on chronic heart failure with a preserved ejection fraction
Cervical radiculopathy
Right upper extremity pain and weakness
Chronic pain syndrome
Type 2 diabetes
Acute kidney injury superimposed on stage III chronic kidney disease
Hyponatremia
Chronic respiratory failure on 3 L of oxygen at baseline
Gastroesophageal reflux disease
Coronary artery disease
Iron deficiency anemia
Peripheral neuropathy
Sciatica
Obesity due to excess calories
Consults: Cardiology, neurology, orthopedic surgery
Head CT:
Mild age-related parenchymal atrophy. No intra- or extra-axial mass, hemorrhage, or fluid collection. Mild subcortical, deep, and periventricular white matter low-attenuation, compatible with changes of chronic small vessel ischemic disease. Small
mucous retention cyst in the left maxillary sinus. The mastoid air cells are clear. Bilateral ocular lens implants.
IMPRESSION:
No acute intracranial abnormality.
Right upper extremity CT:
Small joint effusion. Degenerative changes, as described. No erosion. No acute fracture, dislocation, or shoulder separation. No osteolytic or blastic lesion.
Hospital course:
85-year-old female with a past medical history of CAD status post CABG, heart failure, CKD, diabetes, GERD, and chronic respiratory failure on 3 L of oxygen at baseline who initially presented with vomiting and urinary retention. Patient was found
to have an acute urinary tract infection, and urinary retention requiring a Reed. She was treated with Levaquin. She had acute kidney injury superimposed on stage III chronic kidney disease from obstructive uropathy. Her creatinine returned to
her baseline with insertion of the Reed. Her Reed was removed and she was able to void. She completed a full course of antibiotics for her urinary tract infection, and does not need anymore antibiotics upon discharge.
Patient's hospital course was complicated by acute heart failure with a preserved ejection fraction. Patient was seen in conjunction with cardiology. She was diuresed with IV Lasix. She has chronic respiratory failure, and requires 3 L of oxygen
at baseline. She diuresed quite well, and required only 2 L of oxygen in the hospital. Cardiology recommends resuming patient's home Lasix dose of 40 mg twice a day on 02/01/2025. She needs a repeat BMP in 1 week.
Patient also had acute onset of right upper extremity pain and weakness while in the hospital. She denied any trauma, or injury. Patient was seen in conjunction with neurology, and stroke was ruled out. Right upper extremity CT showed
degenerative changes as above. Patient was seen in conjunction with orthopedic surgery, who suspects she has cervical radiculopathy. She was treated with gabapentin, oxycodone, Tylenol, and lidocaine patches. She was started on prednisone 40 mg
daily, recommend she continues to complete a 7-day course for anti-inflammatory effects. She has 3 more days of prednisone left upon discharge. She was also started on Lantus 10 units at bedtime, and NovoLog 5 units AC 3 times daily. Recommend
that she continue this insulin regimen upon discharge for 3 days to cover for steroid-induced hyperglycemia. She can follow-up with her usual pain management doctor, Dr. Quiroga. She has a follow-up appointment on 02/12/2025.
Patient's multiple medical comorbidities have been optimized. She is discharged to short-term rehab. Again, she is only to take Lantus and NovoLog for 3 days, while she is on the prednisone for 3 more days for her cervical radiculopathy. She
needs to follow-up with her primary care provider 1 week after she leaves rehab, Dr. Quiroga/pain management as scheduled, and cardiology in the office as scheduled.
Disposition: Short-term rehab
Discharge planning: Required 41 minutes
Discharge Plan
-
Patient Disposition: Skilled Nursing/SNF
Discharge Diagnosis/Procedures: Congestive heart failure exacerbation, chronic pain syndrome, cervical radiculopathy with right shoulder and right arm pain, right upper extremity weakness due to pain, acute urinary tract infection, urinary
retention, chronic hypoxic respiratory failure requiring 2 L of oxygen at baseline, chronic kidney disease, iron deficiency anemia
Condition: Fair
Diet: 2 Gram Sodium and Diabetic, Carb Controlled
Activity: As tolerated
Blood Work: BMP on 02/06/25
Specialty Instructions: Weigh Daily- Call MD for wt gain/loss 3 lbs overnight/5 lbs in 1 week
Activity Restrictions/Additional Instructions:
Continue prednisone 40 mg daily for 3 more days, then stop.
Give Lantus 10 mg at bedtime, and NovoLog 5 units AC 3 times daily for 3 more days, then stop.
Please follow-up with your primary care provider 1 week after you leave rehab, and cardiology as scheduled.
Instructions: *[facility] Heart Failure Instructions
Referrals:
Becka Lacy MD [Family Provider, Internal Medicine] - in one week
Tanika Jaime DO [Active, Cardiology] - 03/01/25 3:20 pm
Referral Note: You have a cardiology follow-up appointment at the [place] office. Please call with questions
Prescriptions:
New
prednisone 20 mg Tablet
40 mg PO DAILY 3 Days Qty: 6 0RF
ferrous sulfate [FeroSul] 325 mg (65 mg iron) Tablet
325 mg PO HS Qty: 0 0RF
cyclobenzaprine 10 mg Tablet
5 mg PO TID Qty: 0 0RF
insulin aspart U-100 100 unit/mL (3 mL) Insulin Pen
5 unit SC AC 3 Days Qty: 0.45 0RF
Insulin Glargine Lantus [Lantus] 10 UNITS
Subcutaneous Insulin Syringe [Syringe-Insulin] 0 UNIT
As Directed mls/hr SC HS
Ordered By: Osiel Samuel MD
Last Taken: 01/30/25 22:53 0.1 mls
sennosides-docusate sodium 8.6-50 mg Tablet
2 tab PO BID Qty: 0 0RF
oxycodone 5 mg Tablet
5 mg PO Q4HPRN PRN (Reason: moderate severe pain) Qty: 10 0RF
lidocaine 4 % Adhesive Patch,Medicated
2 patch topical DAILY Qty: 0 0RF
Continued
metoprolol tartrate 100 mg Tablet
100 mg PO BID
isosorbide mononitrate 30 mg Tablet Extended Release 24 Hr
30 mg PO DAILY
therapeutic multivitamin Tablet
1 tab PO QPM
fluticasone propionate 50 mcg/actuation [place],Suspension
1 spray INTRANASAL BIDPRN PRN (Reason: congestion)
cholecalciferol (vitamin D3) [Vitamin D3] 50 mcg (2,000 unit) Capsule
50 mcg PO DAILY
aspirin 81 mg Tablet,Chewable
81 mg PO DAILY
fenofibrate nanocrystallized 48 mg Tablet
48 mg PO DAILY
hydralazine 25 mg tablet
25 mg PO BID
gabapentin 300 mg capsule
300 mg PO QID
rosuvastatin 20 mg tablet
20 mg PO QPM
cyanocobalamin (vitamin B-12) 1,000 mcg Tablet Extended Release
1,000 mcg PO DAILY
acetaminophen 650 mg Tablet Extended Release
1,300 mg PO BIDPRN PRN (Reason: mild pain)
metformin 1,000 mg Tablet
500 mg PO BID
omeprazole 20 mg Capsule,Delayed Release(Dr/Ec)
20 mg PO DAILY
nystatin 100,000 unit/gram Powder
1 applic TOPICAL DIRECTED
Patient Comments:
01/25/2025, pt. applies under belly flaps after they take a shower.
coenzyme Q10 [CoQ-10] 100 mg Capsule
300 mg PO QPM
Visbiome 112.5 billion cell Capsule
1 cap PO QPM
Held
furosemide 20 mg tablet
40 mg PO BID
Hold Instructions: Resume on 02/01/25.
Discontinued
oxycodone-acetaminophen 5-325 mg Tablet
1 tab PO TID PRN (Reason: severe pain)
docusate sodium [Stool Softener] 100 mg Capsule
200 mg PO DAILY PRN (Reason: constipation)
Discharge Orders:
Discharge Patient (As Directed); Ordered 01/31/25
Ordered By: Osiel Samuel
Discharge Date and Time
Discharge Date/Time: 01/31/25 13:04
Print Language: MALAY
--- NOTE | 2025-01-31 12:22 | SUR.OPER ---
report given to nurse Grider
== END 2025-01-31 13:04 | DRG 291 ==
LOC: 4 WEST ACU 14:16
PROVIDERS: Emergency Medicine; Internal Medicine; Physician Assistant Medical; ADMITTING PHYSICIAN Hospitalist; ATTENDING PHYSICIAN Family Medicine; CONSULT PHYSICIAN Internal Medicine Cardiovascular Disease; CONSULT PHYSICIAN Psychiatry & Neurology Neurology; CONSULT PHYSICIAN Specialist; EMERGENCY PHYSICIAN Emergency Medicine; FAMILY PHYSICIAN Internal Medicine Geriatric Medicine
DX: I13.0 Hypertensive heart and chronic kidney disease with heart failure and stage 1 through stage 4 chronic kidney disease, or unspecified chronic kidney disease (principal); I50.33 Acute on chronic diastolic (congestive) heart failure; N39.0 Urinary tract infection, site not specified; N17.9 Acute kidney failure, unspecified; E87.1 Hypo-osmolality and hyponatremia; E87.20 Acidosis, unspecified; J96.10 Chronic respiratory failure, unspecified whether with hypoxia or hypercapnia; N18.31 Chronic kidney disease, stage 3a; E11.22 Type 2 diabetes mellitus with diabetic chronic kidney disease; E78.00 Pure hypercholesterolemia, unspecified; I25.10 Atherosclerotic heart disease of native coronary artery without angina pectoris; E11.51 Type 2 diabetes mellitus with diabetic peripheral angiopathy without gangrene; J44.9 Chronic obstructive pulmonary disease, unspecified; M54.12 Radiculopathy, cervical region; G89.4 Chronic pain syndrome; E66.09 Other obesity due to excess calories; E66.812 Obesity, class 2; D63.8 Anemia in other chronic diseases classified elsewhere; K21.9 Gastro-esophageal reflux disease without esophagitis; E11.42 Type 2 diabetes mellitus with diabetic polyneuropathy; H91.90 Unspecified hearing loss, unspecified ear; Z66 Do not resuscitate; Z60.2 Problems related to living alone; Z87.891 Personal history of nicotine dependence; Z95.1 Presence of aortocoronary bypass graft; Z79.82 Long term (current) use of aspirin; Z79.84 Long term (current) use of oral hypoglycemic drugs; Z68.36 Body mass index [BMI] 36.0-36.9, adult; Z11.52 Encounter for screening for COVID-19; Z88.0 Allergy status to penicillin; Z88.1 Allergy status to other antibiotic agents; Z91.030 Bee allergy status; Z99.81 Dependence on supplemental oxygen
CPT/HCPCS: 51702; 51798; 70450; 71045; 71046; 73030; 73060; 73200; 80048; 80053; 81003; 81015; 82607; 82728; 82746; 82962; 83036; 83540; 83550; 83735; 83880; 84100; 84484; 85025; 85027; 87077; 87086; 87186; 87811; 93005; 96361; 96374; 96375; 97110; 97163; 97167; 97530; 97535; 99285; J2916